=== PATIENT | male | born 1970 | race Caucasian/White ===

== ENCOUNTER 2025-01-13 22:09 | Inpatient (IN) | payer OTHER, SELFPAY ==
--- OUTSIDE RECORDS SUMMARY | 2025-01-13 22:17 | XMS_ITS | Encounter Summary ---
Author Organization [employer] Address [address] [place] [address] 7[address] [place] [address] Care Team Providers Care Recreation Clerk Name Role Phone Radha Borja [facility] Primary Care Provider [phone]- [phone] Mora Barcenas RN Unavailable Unavailable Graeme Rea MA Unavailable Unavailable Nancy Oneill Unavailable Unavailable Precious Redmond RN Unavailable Unavailable Encounter Details Date Type Department Care Team (Late st Contact Info) Description 01/10/2025 5:35 PM EDT Telemedicine [facility] [address] [place] [phone] Skylar Giordano FNP [address] [place] [phone] At high risk for falls (Primary Dx); High risk medication use Social History Tobacco Use Types Packs/Day Years Used Date Smoking Tobacco: Every Day Cigarettes 0.7 49.3 Started: 1977 Smokeless Tobacco: Former Comments:Reports smoking les s 08/05/24 Alcohol Use Standard Drinks/Week Comments Not Currently 0 (1 standard drink = 0.6 oz pur e alcohol) Housing Stability Answer Date Recorded What is your housing situation today? I have manuel perez 09/13/[address] you li ve. Do you have problems with any of the following? None of the above 09/13/2024 Food Insecurity Answer Date Recorded Within the past 12 months, y ou worried that your food would run out before you got money to buy more: Never True 10/22/2024 Within the past 12 months,th e food you bought just didn't last and you didn't have enough money to get more: Never True 07/2025 Transportation Answer Date Recorded In the past 12 months, has l ack of transportation kept you from medical appts, meetings, work or from getting things needed for daily living? Yes, it has kept me from medical appointments or getting medications. 10/22/2024 Utilities Answer Date Recorded In the past 12 months, has t he electric, gas, oil or water company threatened to shut off services in your home? No 09/13/2024 Internet Access Answer Date Recorded Internet Access Q1 Yes 09/13/2024 Internet Access Q2 Not on file 09/13/2024 Sex and Gender Information Value Date Recorded Sex Assigned at Male 03/18/2024 1:26 PM EDT Legal Sex Male 6:52 PM EDT Gender Identity Male 01/23/2024 6:52 PM EDT Sexual Orientation Straight 01/23/2024 6: 52 PM EDT documented as of this encounter Progress Notes * RYLIE Blue - 01/10/2025 5:35 PM EDT [facility]: After Hours Call Barrington Rodriguez : 1970 Received after hours alert for concern of polypharmacy. Page was returned within 20 minutes. Pt called asking if there were any medications that he could come off of because he feels that he'son too many. Denies neg SEs or concerning med effects but would like to wean off some. Plan: Advised pt continue all meds for now. Will have pt f/u with PCP to discuss med changes. He is in agreement with plan. Patient was educated about red flag warning signs for which they would need to seek emergency medical attention. Educated to follow up with new or worsening symptoms. RYLIE Blue- documented in this encounter Plan of Treatment Not on file documented as of this encounter Visit Diagnoses Diagnosis At high risk for falls- Primary High risk medication use documented in this encounter Care Teams Recreation Clerk Relationship Specialty Start Date End Date Radha Borja FNP [address] [place] [phone] PCP - General Family Medicine 07/04/22 Mora Barcenas, RN Registered Nurse Substance Use Disorder Treatment 02/23/24 Graeme Rea MA Substance Use Disorder Treatment 02/23/24 Nancy Oneill CHW Community Health Worker Psychiatry 04/29/24 Precious Redmond, VY Registered Nurse Case Management 12/02/24 [facility] 12/02/24 documented as of this encounter
--- OUTSIDE RECORDS SUMMARY | 2025-01-13 22:17 | XMS_ITS | Encounter Summary ---
Author Organization [employer] Address [address] [place] [address] [address] [place] [address] Care Team Providers Care Wheelman Name Role Phone Radha Borja [employer] MACHINE OPERATOR Primary Care Provider [phone]- [phone] Mora Barcenas RN Unavailable Unavailable Graeme Rea MA Unavailable Unavailable Nancy Oneill Unavailable Unavailable Precious Redmond RN Unavailable Unavailable Reason for Visit * Reason Onset Date Comments Appointment Request 11/29/2024 Encounter Details Date Type Department Care Team ([facility] st Contact Info) Description 11/29/[address] [phone] Radha Borja [address] [phone] Appointment Request Social History Tobacco Use Types Packs/Day Years [...] PM EDT documented as of this encounter Miscellaneous Notes * Telephone Encounter - Juan Camarillo - 11/29/2024 11:16 AM EST Pt needs f/u with pcp, next availability. Thank you. documented in this encounter Plan of Treatment Not on file documented as of this encounter Visit Diagnoses Not on filedocumented in this encounter Care Teams Wheelman Relationship Specialty Start Date End Date Radha Borja FNP [address] [place] [phone] PCP - General Family Medicine 07/04/22 Mora Barcenas, VY Registered Nurse Substance Use Disorder Treatment 02/23/24 Graeme Rea MA Substance Use Disorder Treatment 02/23/24 Nancy Oneill CHW Community Health Worker Psychiatry 04/29/24 Precious Redmond RN Registered Nurse Case Management 12/02/24 [facility] 12/02/24 documented as of this encounter
--- OUTSIDE RECORDS SUMMARY | 2025-01-13 22:17 | XMS_ITS | Encounter Summary ---
Author Organization [employer] Address [address] [place] [address] [place] [address] Care Team Providers Care Informatics Physician Liaison Name Role Phone Radha Borja Primary Care Provider [phone]- [phone] Mora Barcenas RN Unavailable Unavailable Graeme Rea MA Unavailable Unavailable Nancy Oneill CHW Unavailable Unavailable Trent Maguire CHW Unavailable Unavailable Precious Redmond RN Unavailable Unavailable Reason for Visit * Reason Comments Med Refill Encounter Details Date Type Department Care Team (Late st Contact Info) Description 04/06/2024 Refill Family [facility] Family [address] [phone] Johana Arreola FNP [address] [place] [phone] Opioid dependence, in remission (CMS/HCC) Social History Tobacco Use Types Packs/Day Years Used Date Smoking Tobacco: Every Day Cigarettes 0.7 49.3 Started: 1977 Sex and Gender Information Value Date Recorded Sex Assigned at Male 03/18/2024 1:26 PM EDT Legal Sex Male 6:52 PM EDT Gender Identity Male 01/23/2024 6:52 PM EDT Sexual Orientation Straight 01/23/2024 6: 52 PM EDT documented as of this encounter Plan of Treatment Not on file documented as of this encounter Visit Diagnoses Diagnosis Opioid dependence, in remission (CMS/HCC) documented in this encounter Care Teams Informatics Physician Liaison Relationship Specialty Start Date End Date Radha Borja FNP [address] [place] [phone] PCP - General Family Medicine 07/04/22 Mora Barcenas, VY Registered Nurse Substance Use Disorder Treatment 02/23/24 Graeme Rea MA Substance Use Disorder Treatment 02/23/24 Nancy Oneill CHW Community Health Worker Psychiatry 04/29/24 Trent Maguire CHW 08/24/24 08/24/24 Precious Redmond, VY Registered Nurse Case Management 12/02/24 [facility] 12/02/24 documented as of this encounter
--- OUTSIDE RECORDS SUMMARY | 2025-01-13 22:17 | XMS_ITS | Clinical Summary ---
Author Organization [employer] Address [address] [place] [address] [address] [place] [address] Care Team Providers Care Supervisor Hard Candy Name Role Phone Radha Borja MOTOR MECHANIC Primary Care Provider [phone] Mora Barcenas RN Unavailable Unavailable Graeme Rea MA Unavailable Unavailable Nancy Oneill Unavailable Unavailable Precious Redmond RN Unavailable Unavailable Allergies Active Allergy Reactions Criticality Noted Date Comments Acetaminophen Vomiting 08/12/2014 Causative Agent: Vicodin; Reaction(s): vomitting (moderate to severe) Hydrocodone Vomiting 08/12/2014 Causative Agent: Vicodin; Reaction(s): vomitting (moderate to severe) Other 09/13/2024 Penicillins Anaphylaxis High 08/12/2014 Reaction(s): Anaphalaxis (fatal) Medications * This document contains information received from the source organization and may not represent a complete record from that organization. albuterol (2.5 MG/3ML) 0.083% nebulizer solution Take 2.5 mg by nebulization every 4 (four) hours if needed for shortness of breath. 024 Active Ventolin HFA 108 (90 Base) MCG/ACT inhaler Inhale 2 puffs every 4 (four) hours if needed for shortness of breath. 023 Active ergocalciferol (Vitamin D2) 1.25 MG (82774 UT) capsule Take 50,000 Units by mouth 1 (one) time per week. Active Blood Pressure Monitoring (Blood Pressure Cuff) miscIndications: Hypertension, unspecified type 1 each before breakfast. 1 each 024 Active atorvastatin (Lipitor) 10 MG tabletIndication s:Coronary artery calcification seen on CT scan Take 1 tablet (10 mg) by mouth Once per day. 30 tablet 11 024 2024 Active nicotine (Nicoderm, Step 2) 14 MG/24HR patch Place 1 patch on the skin 1 (one) time each day at the same time. 28 patch 3 Active nicotine polacrilex (Nicorette) 4 MG gum Chew 1 each (4 mg) if needed for smoking cessation. 100 each 3 Active divalproex (Depakote) 500 MG EC tablet TAKE 2 TABLETS BY MOUTH 2 TIMES DAILY 120 tablet 1 Active tiotropium (Spiriva Respimat) 2.5 MCG/ACT inhaler Inhale 2 puffs Once per day. Active doxepin (SINEquan) 150 MG capsule Take 1 capsule (150 mg) by mouth at bedtime. 30 capsule 1 025 2024 Active diphenhydrAMINE (Banophen) 25 MG capsule Take 2 capsules (50 mg) by mouth if needed at bedtime for sleep. 60 capsule 1 Active Multiple Vitamin (Daily-Yobany) tablet Take 1 tablet by mouth before breakfast. 90 tablet 2 Active cloNIDine (Catapres) 0.2 MG tablet Take 1 tablet (0.2 mg) by mouth 2 times daily. 60 tablet 1 025 2024 Active furosemide (Lasix) 40 MG tablet Take 0.5 tablets (20 mg) by mouth Once per day. 30 tablet Active Buprenorphine HCl-Naloxone HCl (Suboxone) 8-2 MG SL filmIndications: Opioid use disorder Place 1 Film under the tongue 3 times daily. 84 Film Active pregabalin (Lyrica) 200 MG capsuleIndicatio ns:Peripheral neuropathic pain Take 1 capsule (200 mg) by mouth 2 times daily. 60 capsule 025 Active lidocaine (Lidoderm) 5 % patchIndications :Peripheral neuropathic pain Apply 1 patch topically Once per day. Remove & discard patch within 12 hours or as directed by MD. 30 patch 3 Active Symbicort 80-4.5 MCG/ACT inhaler Inhale 1 puff 2 times daily. Active predniSONE (Deltasone) 50 MG tablet Take 1 tablet by mouth Once per day. Active omeprazole (PriLOSEC) [address] capsuleIndicatio ns:Esophageal dysphagia Take 1 capsule (20 mg) by mouth before breakfast and before evening meal. 90 capsule 2 Active prazosin (Minipress) 2 MG capsuleIndicatio ns:Complex posttraumatic stress disorder Take 1 capsule (2 mg) by mouth at bedtime. 90 capsule 3 025 2025 Active amphetamine-dext roamphetamine XR (Adderall XR) 20 MG 24 hr capsuleIndicatio ns:Attention Deficit Hyperactivity Disorder Take 1 capsule (20 mg) by mouth in the morning. 025 2024 Active amphetamine-dext roamphetamine (Adderall) 10 MG tabletIndication s:Attention deficit hyperactivity disorder (ADHD), combined type Take 1 tablet (10 mg) by mouth Once daily. 025 2024 Active finasteride (Proscar) 5 MG tablet Take 5 mg by mouth Once per day. 024 2024 amphetamine-dext roamphetamine XR (Adderall XR) 20 MG 24 hr capsuleIndicatio ns:Attention Deficit Hyperactivity Disorder Take 1 capsule (20 mg) by mouth in the morning. 30 capsule 025 2024 Discontinued(R eorder (will not trigger notification to Pharmacy)) amphetamine-dext roamphetamine (Adderall) 10 MG tabletIndication s:Attention deficit hyperactivity disorder (ADHD), combined type Take 1 tablet (10 mg) by mouth Once per day for 24 days. 24 tablet 025 2024 Discontinued(R eorder (will not trigger notification to Pharmacy)) prazosin (Minipress) 2 MG capsuleIndicatio ns:Complex posttraumatic stress disorder Take 1 capsule (2 mg) by mouth at bedtime. 30 capsule 025 2024 Discontinued(R eorder (will not trigger notification to Pharmacy)) amphetamine-dext roamphetamine (Adderall) 10 MG tabletIndication s:Attention deficit hyperactivity disorder (ADHD), combined type Take 1 tablet (10 mg) by mouth Once daily. 30 tablet 025 2024 Discontinued(R eorder (will not trigger notification to Pharmacy)) amphetamine-dext roamphetamine XR (Adderall XR) 20 MG 24 hr capsuleIndicatio ns:Attention Deficit Hyperactivity Disorder Take 1 capsule (20 mg) by mouth in the morning. 30 capsule 025 2024 Discontinued(R eorder (will not trigger notification to Pharmacy)) Active Problems Patient Care Coordination No te Formatting of this note migh t be different from the original. Name, , address verified; this CHW called pt to introduce care complex program, pt stated that he was in rehab; this case will be closed from [facility] program. Problem Noted Date Diagnosed Date High risk medication use 01/10/2025 Moderate opioid dependence in sustained remissio n 01/06/2025 Community health education 10/29/2024 Assessment & Plan (11/02/2024 11:31 AM EST): - Home Health for VNA daily med management - CM given frequent admissions within last 6 months At high risk for falls 10/27/2024 Weakness of both lower extremities 10/27/2024 Assessment & Plan (10/27/2024 10:38 PM EST): Recent falls - likely multifactorial, potentially contributed to by new medications started in hospital (furosemide), dehydration, and pre-existing medications (clonidine, prazosin), as well as general deconditioning after hospital stay for respiratory failure. Heart rhythm normal on recent EKG during hospitalization, no evidence of cardiac issues on recent imaging. Decrease prazosin to 2mg capsule. No new rx needed. Pt has some at home Decrease clonidine to 0.2mg every day. No new rx needed. Pt has at home Pt declined to restart furosemide. Will cont to monitor weight, edema, fall. Recommend rpt labs - pt declined and want to come back another time or sooner if keeps occurring Discuss fall risk and proper use of cane Unclear if has home health service this time. Would benefit from home PT and fdc for med management for few months post discharge and living in new environment Gastroesophageal reflux disease 09/30/2024 Opioid dependence on agonist therapy 09/21/2024 Assessment & Plan (10/27/2024 10:18 PM EST): Denies current use. 5 years in sobriety. Cont to support. Uds rpt Not due for Suboxone refill yet Venous insufficiency (chronic) (peripheral) 02/2024 Type 2 DM with diabetic peripheral angiopathy w/ o gangrene 09/16/2024 Assessment & Plan (10/27/2024 9:59 PM EST): Asymptomatic. Metformin was initiated during hospitalization Aug 2024. His A1c during this hospitalization is 6.4 (borderline type II vs. Prediabetes. F/U regarding management Alcohol abuse, uncomplicated 09/16/2024 Retention of urine, unspecified 09/16/2024 Overview (12/12/2024): On 09/04/24, bladder scan >500 cc with urge to void. Straight cath ordered, however pt ultimately able to void 900 cc spontaneously. He had continued difficulties with initiating urination which improved after starting finasteride. Discharged with finasteride 5mg qd Post-traumatic stress disorder, unspecified 02/2024 Assessment & Plan (12/12/2024 8:27 PM EST): Cont prazosin and clonidine. See ADHD plan Esophageal dysphagia 09/16/2024 Overview (12/12/2024): 09/2024 Pt self reported difficulties swallowing. AUTOMOBILE REPOSSESSOR consult and MBS done with suggested normal oropharyngeal swallow phase, but esophageal dysmotility. Per AUTOMOBILE REPOSSESSOR note, esophageal phase, notable for contrast retention, corkscrew appearance, and retrograde flow . Pt with difficulty completing esophogram as he is not able to stand unassisted. Discharged with PPI BID and GI referral Epilepsy, unspecified, not i ntractable, without status epilepticus 09/16/2024 Food insecurity 09/13/2024 Leg swelling 09/07/2024 Alcohol dependence in remission 08/27/2024 Need for home health care 07/29/2024 Assessment & Plan (12/12/2024 8:21 PM EST): Update VNA care once establish with [facility] [phone] [facility] or [facility]ER care Transportation insecurity 07/28/2024 Assessment & Plan (12/12/2024 8:21 PM EST): Tasked psy LAURENW Nancy to assist with PT1 Hypertension 07/28/2024 Assessment & Plan (10/27/2024 10:15 PM EST): Discuss likely need to start BP med given multiple readings above 130/80. However, given recent frequent falls and generalized BLE weakness. Will hold for now. Advise to check home BP x2 weeks and f/u with nursing Remind that prazosin and clonidine are antihypertensive meds Coronary artery calcification seen on CT scan Overview (06/11/2024): From Lung CT 04/2024: Cardiac size is normal. No pericardial effusion. Mild coronary artery calcifications. Aorta and main pulmonary artery are normal in caliber. Assessment & Plan (08/16/2024 9:11 PM EST): Mild calcification of aorta on imaging. Started Atorvastatin 10mg as instructed, no side effect. Has not completed lab. Plan to return fasting for lipid panel and CMP. From Lung CT 04/2024: Cardiac size is normal. No pericardial effusion. Mild coronary artery calcifications. Aorta and main pulmonary artery are normal in caliber. The ASCVD Risk score ([place] DK, et al., 2019) failed to calculate for the following reasons: Cannot find a previous HDL lab Cannot find a previous total cholesterol lab - Cont Norman-3 fish oil supplementation - Cont to encourage smoking cessation and dietary changes and incorporate physical activities whenever possible Assessment & Plan (07/28/2024 11:55 AM EDT): From Lung CT 04/2024: Cardiac size is normal. No pericardial effusion. Mild coronary artery calcifications. Aorta and main pulmonary artery are normal in caliber. The ASCVD Risk score (Melina LEA, et al., 2019) failed to calculate for the following reasons: Cannot find a previous HDL lab Cannot find a previous total cholesterol lab - Mild calcification of aorta on imaging - Start atorvastatin 10 mg nightly for cholesterol control; watch for new onset muscle pain - Norman-3 fish oil supplementation - Repeat blood work to monitor kidney function after starting medications - If blood pressure remains elevated, consider starting a secondary antihypertensive medication (currently on clonidine and prazosin for PTSD which as BP lowering side effect) - Lifestyle modifications: reduce sausage and sugar intake Degenerative arthritis of thoracic spine 024 Overview (06/11/2024): No osseous lesions. Thoracic spine degenerative changes. Preservation of vertebral body heights. Lumbar radiculopathy 04/27/2024 Assessment & Plan (08/16/2024 8:55 PM EST): Episodic flare, likely MSK. - In-office Toradol 30mg for acute pain relief. Discuss potential side effects, such as gastrointestinal discomfort or dizziness, and instruct the patient to report any severe or unusual symptoms immediately. - Recommend oral NSAIDs, such as ibuprofen with food for continued pain management, if tolerated. Pt cannot tolerate Tylenol. - Educate the patient on non-pharmacological interventions, including rest, application of heat or cold packs, and gentle stretching exercises as tolerated. - Advise the patient to avoid heavy lifting or strenuous activities until the pain subsides. Assistance needed with transportation 02/21/2024 Overview (02/21/2024): Last Addressed Date: 10/21/2023 Attention deficit hyperactivity disorder (ADHD) 02/21/2024 Overview (06/11/2024): Assessment & Plan (12/12/2024 8:28 PM EST): No change in med. Good response to combination of XR and IR though caution on drug-drug interaction and exacerbation of comorbid medical conditions. ADHD combined type, diagnosed since childhood. Suboptimal symptom control c/b increase workload and health anxiety. Pt had trouble getting med from home. Issue resolved during visit. Rehab will administer med until discharge. Pt worries about his family stealing his meds and is requesting VNA services to help with med management upon discharge. He does use a lock-box. - Cont Adderal IR 10mg midday - Cont Adderall XR 20mg qAM. PA#[id number] from 12/02/23-12/02/24. Will task Rosalinda to start new PA - Cont Prazosin 2mg qhs (decreased to 2mg at bedtime in 09/2024 due to fall risk) for PTSD. Pt was on 4mg at bedtime - Cont Clonidine 0.2mg BID for ADHD and PTSD - Pt has tolerated being on both prazosin and clonidine in the past but the higher dose may be contributing to recent falls. We had tried to stop the prazosin when we started the clonidine (for additional sleep benefit), but pt requested to stay on prazosin as well since it has helped with his flashbacks and agitation during the day. -We will continue to support his sobriety and self-management efforts and assist him with transportation needs. 5 years in sobriety as of 06/2024. - We will continue to closely follow-up and encourage his continued engagement in therapy with Kim Baxter Assessment & Plan (11/02/2024 11:33 AM EST): ADHD combined type, diagnosed since childhood. Suboptimal symptom control c/b increase workload and health anxiety. Pt had trouble getting med from home. Issue resolved during visit. Rehab will administer med until discharge. Pt worries about his family stealing his meds and is requesting VNA services to help with med management upon discharge. He does use a lock-box. - Cont Adderal IR 10mg midday - Cont Adderall XR 20mg qAM. PA#[id number] from 12/02/23-12/02/24. - Cont Prazosin 2mg qd and Clonidine 0.2mg every day. Pt has tolerated being on both prazosin and clonidine in the past but the higher dose may be contributing to recent falls. We had tried to stop the prazosin when we started the clonidine (for additional sleep benefit), but pt requested to stay on prazosin as well since it has helped with his flashbacks and agitation during the day. -We will continue to support his sobriety and self-management efforts and assist him with transportation needs. 5 years in sobriety as of 06/2024. - We will continue to closely follow-up and encourage his continued engagement in therapy with Kim Baxter Assessment & Plan (10/27/2024 10:25 PM EST): ADHD combined type, diagnosed since childhood. Suboptimal symptom control c/b increase workload and health anxiety. Lack of adequate refill given recent hospitalization. - Plan to check if PA is needed - Change pharmacy to [facility] - Cont Adderal IR 10mg midday - Cont Adderall XR 20mg qAM. [id number] from 12/02/23-12/02/24. - Decrease Prazosin 2mg qd and Clonidine 0.2mg every day. Pt has tolerated being on both prazosin and clonidine in the past but the higher dose may be contributing to recent falls. We had tried to stop the prazosin when we started the clonidine (for additional sleep benefit), but pt requested to stay on prazosin as well since it has helped with his flashbacks and agitation during the day. -We will continue to support his sobriety and self-management efforts and assist him with transportation needs. 5 years in sobriety as of 06/2024. - We will continue to closely follow-up and encourage his continued engagement in therapy with Kmi Baxter Assessment & Plan (08/16/2024 8:46 PM EST): ADHD combined type, diagnosed since childhood. Suboptimal symptom control c/b increase workload and health anxiety. - Doing better with recent meds adjustment but unfortunately his work/residential setting continue to be stressful and disruptive to his sleep and a risk for his sobriety. He lives in a sober house and needs to be constantly hypervigilance (in addition to PTSD symptoms) and looking out for residents. As a results, he can't go to bed until 1-2pm and self-increase Adderall Xr20mg qAM; admits needs extra dose from the street sometimes. We had added an IR 10mg dose of Adderall last visit and he found this helpful. - Cont Adderal IR 10mg midday - Adderall XR 20mg qAM. PA#[id number] from 12/02/23-12/02/24. - Cont Prazosin 4mg at bedtime and Clonidine 0.2mg BID Pt has tolerated being on both prazosin and clonidine. We had tried to stop the prazosin when we started the clonidine (for additional sleep benefit), but pt requested to stay on prazosin as well since it has helped with his flashbacks and agitation during the day. -We will continue to support his sobriety and self-management efforts and assist him with transportation needs. 5 years in sobriety 06/2024. - We will continue to closely follow-up and encourage his continued engagement in therapy with Kim Baxter Assessment & Plan (07/28/2024 11:53 AM EDT): ADHD combined type, diagnosed since childhood. Suboptimal symptom control c/b increase workload and health anxiety. Currently on Adderall XR 20mg every morning. Pt has had increased responsibility at the sober house and feels the Adderall XR has not worked/lasted as long from afternoon on. He lives in a sober house and needs to be constantly hypervigilance (in addition to PTSD symptoms) and looking out for residents. As a results, he can't go to bed until 1-2pm and self-increase Adderall Xr20mg qAM; admits needs extra dose from the street sometimes. - Increase Adderall XR 20mg qAM. Can consider 10mg regular release prn PM. However, given BP, extreme caution with increase dose. Pt also not taking clonidine and prazosin as often. I reiterated to day that both of these medications have additional benefits of lowering BP as well. Pt has tolerated being on both prazosin and clonidine. We had tried to stop the prazosin when we started the clonidine (for additional sleep benefit), but pt requested to stay on prazosin as well since it has helped with his flashbacks and agitation during the day. Will need PA. Previous [id number] from 12/02/23-12/02/24. -The patient was informed about the risks, benefits, side effects, and alternatives to the proposed treatments, as well as the option of making no changes to the current regimen. He understood and agreed with the proposed plan. -We will continue to support his sobriety and self-management efforts and assist him with transportation needs. 5 years in sobriety 06/2024. - We will continue to closely follow-up and encourage his continued engagement in therapy with Kim Baxter Follow-up with Psy nurse for med response (side effects) Assessment & Plan (04/29/2024 7:44 PM EDT): ADHD combined type, diagnosed since childhood. Stable with current dose. - Cont Adderall XR 20mg every morning. PA#[id number] from 12/02/23-12/02/24. Last filled 02/02/24 for 28 days. [facility] checked. Next refill: 03/01/24 -Reviewed the risks, benefits, side effects, and alternatives to the proposed treatments, as well as the option of making no changes to the current regimen. He understood and agreed with the proposed plan. -We will continue to support his sobriety and self-management efforts and assist him with transportation needs. - We will continue to closely follow-up and encourage his continued engagement in therapy with Kim Navarro Rpt lab at IP visit. Monitoring parameter: ---BP, HR, Cardiovascular risk ---Lipid (last done 2020, rpt 2025) ---Future considerations: Sleep Studies ---EKG: last record in EMR 05/2022 at [facility]: rate 83, NSR, nonspecific change in ST segment in anterior leads. Bilateral chronic knee pain 02/21/2024 Overview (02/21/2024): Last Addressed Date: 03/20/2023 Chronic pain syndrome 02/21/2024 Overview (02/21/2024): Last Addressed Date: 11/12/2023 Cocaine dependence in remission 02/21/2024 Overview (02/21/2024): Last Addressed Date: 04/24/2017 Color blindness 02/21/2024 Overview (02/21/2024): Last Addressed Date: 05/07/2021 Complex posttraumatic stress disorder 02/21/2024 Overview (04/29/2024): 53 yo, M, with polysubstance use, chronic back and knee pain, peripheral neuropathy, concurrent ADHD combined type and cPTSD, along with history of bipolar affective disorder. He does not exhibited hypomanic/manic and psychotic symptoms today. Low suicide risk. Agitaiton has sig improved. Typical frustration has identifiable cause such as sleep disturbances secondary to PTSD symptoms, chronic pain and ADHD symptoms. Since we started ADHD treatement, pt reports improvement in irritability, impulsitivity, anxiety, concentration, and productivity with daily activities. Assessment & Plan (08/16/2024 8:47 PM EST): cPTSD c/b current need to be hypervigilance for work (most recent), h/x polysubstance use in remission, chronic back and knee pain, peripheral neuropathy, ADHD combined type. He carries a previous diagnosis of bipolar d/o, which is a common misdiagnosis for patients w/ cPTSD and uncontrolled ADHD and resultant polysubstance use. His h/o misconduct, impulsitivity, easily agitated and mood dysregulation are described in the setting of traumatic events, family discord, self-medicated, lack of psychosocial supports rather than a primary thought or mood disorder. Since we started ADHD treatement, pt reports improvement in sleep disturbances, irritability, impulsitivity, anxiety, concentration, and productivity with daily activities He does not exhibited hypomanic/manic and psychotic symptoms today. Low suicide risk. Agitaiton has sig improved. Typical frustration has identifiable cause such as family conflict (sister), intrusive memories and sleep disturbances secondary to PTSD symptoms, chronic pain and ADHD symptoms. - Reinforced important of taking medications as prescribed. - Cont clonidine 0.2mg BID for PTSD. Cautions on orthostatic hypotention - Cont Prazosin 4mg BID. Pt states has run out recently. Knows of side effects. Plan to monitor. This med helps with sleep and agitation for him. - Cont Trazadone 50mg qhs and Benadryl prn for sleep - Cont Depakote DR 1000mg BID for mood. Rpt serum at IP. - Cont [id number] qhs for depression and insomnia augmentation - Cont Pregabalin 200 mg BID for additional neuropathic pain control. (Increased in 06/2024) - Cont psychotherapy with Kim as scheduled. Assessment & Plan (07/28/2024 11:34 AM EDT): cPTSD c/b current need to be hypervigilance for work (most recent), h/x polysubstance use in remission, chronic back and knee pain, peripheral neuropathy, ADHD combined type. He carries a previous diagnosis of bipolar d/o, which is a common misdiagnosis for patients w/ cPTSD and uncontrolled ADHD and resultant polysubstance use. His h/o misconduct, impulsitivity, easily agitated and mood dysregulation are described in the setting of traumatic events, family discord, self-medicated, lack of psychosocial supports rather than a primary thought or mood disorder. Since we started ADHD treatement, pt reports improvement in sleep disturbances, irritability, impulsitivity, anxiety, concentration, and productivity with daily activities He does not exhibited hypomanic/manic and psychotic symptoms today. Low suicide risk. Agitaiton has sig improved. Typical frustration has identifiable cause such as family conflict (sister), intrusive memories and sleep disturbances secondary to PTSD symptoms, chronic pain and ADHD symptoms. - Reinforced important of taking medications as prescribed. - Cont clonidine 0.2mg BID for PTSD. Cautions on orthostatic hypotention -Restarts Prazosin 4mg BID. Pt states has run out recently. Knows of side effects. Plan to monitor. This med helps with sleep and agitation for him. - Cont Trazadone 50mg qhs and Benadryl prn for sleep - Cont Depakote DR 1000mg BID for mood. Rpt serum at IP. - Cont [id number] qhs for depression and insomnia augmentation - Increased Pregabalin 200 mg BID for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 micronodules are stable. Lung-RADS Category 2: Benign Appearance or Behavior Nodules with a very low likelihood of becoming a clinically active cancer due to size or lack of growth Lung-RADS Category Description 2: Continue annual screening with CT Lung Screening ??in 12 months Findings under this category can include: Perifissural nodule(s) < 10 mm (524 mm3) Solid nodule(s): < 6 mm (< 113 mm3) new < 4 mm (< 34 mm3) Part solid nodule(s): < 6 mm total diameter (< 113 mm3) on baseline screening Non solid nodule(s) (GGN): <30 mm (<91061 mm3) OR > or equal to 30 mm ( > [place] [address] mm3) and unchanged or slowly growing. Category 3 or 4 nodules unchanged for > or equal to 3 months. ?? Modifier No clinically significant or potentially significant findings Schedule lung cancer screening CT/follow-up CT: ----- ----- This report uses Lung RADS version 1.1 (2019) [email or web address] [email or web address]?la=en If this radiology report contains a blank impression section, it is an incomplete radiology report. ??Please contact the interpreting radiologist or applicable radiology division as soon as possible to obtain the completed interpretation. ? Workstation ID: [id number] Up-to-date CT equipment and radiation dose reduction techniques were employed. CTDIvol: 2.3 mGy. DLP: 68 mGy-cm. Procedure Note Donottravisinterpreter, Image - 04/24/2024 CT LUNG CANCER SCREENING BASELINE INDICATION: Baseline screening. COMPARISON: CT chest 06/12/2021. TECHNIQUE: Non-enhanced chest CT. Images were acquired with helicalacquisition and low dose technique. Multiplanar reconstructions includingMIP, MinIP and Slab images were reviewed. Note that low dose techniqueuses a low level of radiation exposure that provides adequate lung detail but limited image quality in themediastinum and upper abdomen. For radiation dose control at least one of the following techniques wasused in this procedure (1) Automated exposure control (2) Adjustment ofthe mA and/or kV according to patient size (3) Use of iterativereconstruction technique. FINDINGS: BASE OF NECK: Unremarkable. LUNGS AND PLEURA: Mild centrilobular emphysema. Series 900: New 7 mm groundglass nodule in the left upper lobe (62) and 6mm groundglass anterior right upper lobe nodule (91); stable 4 mm leftupper lobe nodule (109) and 4 mm nodule along the minor fissure(147). Mild bibasilar atelectasis. Mild bronchial wall thickening and wall irregularity. MEDIASTINUM: Cardiac size is normal. No pericardial effusion. Mild coronary arterycalcifications. Aorta and main pulmonary artery are normal in caliber. NODES: No adenopathy. UPPER ABDOMEN: No abnormality. BONES/SOFT TISSUES: No osseous lesions. Thoracic spine degenerative changes. Preservation ofvertebral body heights. IMPRESSION: New 7 mm and 6 mm groundglass nodules in the left upper and right upperlobe respectively. Other micronodules are stable. Lung-RADS Category 2: Benign Appearance or Behavior Nodules with a verylow likelihood of becoming a clinically active cancer due to size or lackof growth Lung-RADS Category Description 2: Continue annual screening with CT Lung Screening in 12 months Findings under this category can include: Perifissural nodule(s) < 10 mm (524 mm3) Solid nodule(s): < 6 mm (< 113 mm3) new < 4 mm (< 34 mm3) Part solid nodule(s): < 6 mm total diameter (< 113 mm3) on baseline screening Non solid nodule(s) (GGN): <30 mm (<77320 mm3) OR > or equal to 30 mm ( > [place] 7[address]69 mm3) and unchanged or slowly growing. Category 3 or 4 nodules unchanged for > or equal to 3 months. Modifier No clinically significant or potentially significant findings Schedule lung cancer screening CT/follow-up CT: ----- ----- This report uses Lung RADS version 1.1 (2019) [email or web address] [email or web address] .[email or web address]?la=en If this radiology report contains a blank impression section, it is anincomplete radiology report. Please contact the interpreting radiologistor applicable radiology division as soon as possible to obtain thecompleted interpretation. Workstation ID: [id number] Up-to-date CT equipment and radiation dose reduction techniques wereemployed. CTDIvol: 2.3 mGy. DLP: 68 mGy-cm. us Radha YOUNGBLOOD IMG CT PROCEDURES Final Re sult * HM Hepatitis C Antibody (05/15/2021) Hepatitis C Antibody Nonreactive Blood Historical Provider HEALTH MAINTENANCE Final Result * HIV 1/2 Antigen and Antibody (05/15/2021) HIV Ag/Ab Nonreactive [facility] Provider HEALTH MAINTENANCE Final Result * Fecal Immunochemical Test (05/15/2021) Fecal Immunochemical Test Nonreactive Borderline, Nonreactive, Weakly Reactive, Inconclusive Stool Rectal contents / Unknown [facility] Provider HEALTH MAINTENANCE Final Result from Last 3 Months or Most Recently Relevant to Health Maintenance Insurance C3 Care Teams Supervisor Hard Candy Relationship Specialty Start Date End Date Radha Borja FNP [address] [place] [phone] PCP - General Family Medicine 07/04/22 Mora Barcenas, [place] Registered Nurse Substance Use Disorder Treatment 02/23/24 Graeme Rea MA Substance Use Disorder Treatment 02/23/24 Nancy Oneill CHW Community Health Worker Psychiatry 04/29/24 Precious Redmond RN Registered Nurse Case Management 12/02/24 [facility] 12/02/24
--- OUTSIDE RECORDS SUMMARY | 2025-01-13 22:17 | XMS_ITS | Encounter Summary ---
Author Organization [employer] Address [address] [place] [address] 7[address] [place] [address] Care Team Providers Care Inner Layer Scrubber Tender Name Role Phone Radha Borja [employer] Primary Care Provider [phone]- [phone] Mora Barcenas RN Unavailable Unavailable Graeme Rea MA Unavailable Unavailable Nancy Oneill CHDrew Unavailable Unavailable Precious Redmond RN Unavailable Unavailable Reason for Visit * Reason Onset Date Comments After Hours Call 01/11/2025 Admitted to [facility] 01/08, COPD Encounter Details Date Type Department Care Team (Late st Contact Info) Description 01/11/[address] [phone] Anel Gonzalez, VY After Hours Call (Admitted to [facility] 01/08, COPD) Social History Tobacco Use Types Packs/Day Years [...] encounter Miscellaneous Notes * Telephone Encounter - Anel Weber RN - 01/12/2025 9:20 AM EDT Review of PING: still admitted at [facility] * Telephone Encounter - Anel Weber RN - 01/11/2025 7:55 AM EDT After Hours Call 01/10/25 [id number] - [facility] - (null) Patient/Family Caller Name Barrington Rodriguez Call Date/Time 01/10/2025 05:07 PM Patient Name Barrington Gomez Patient 1970 Age:(54 yrs) Alt-Phone Attempt 1 01/10/2025 05:36 PM Attempt 2 Secure Msg 1st Guideline:2327 PCP Call - No Triage - (Adult After-Hours)Final Guideline:2325 Medication Question Call - (Adult After-Hours)Care Advice:Call PCP within 24 hoursNurse:AchristianoPreliminary Assessment Notes:the Patient Is Requesting A Return Call, He Is At the [facility], Room 20 Triage Assessment Notes:1st attempt room [facility] pt states he is in [facility] and has so many medications and needs to get off of some medications he is on too many adderal, suboxone, gabapentin and Prazosin are the only ones he should be on, ,Pt states [facility] wants to speak with his PCP and he states he wants his meds reconciled, . Pt states Dr Alvarez is PCP? He needs to get into a new program, RN spoke with Patient's nurse Kalyan and states the person that may have wanted to speak with his PCP has left for the day and pt waa trying to facilitate that conversation, requests a call back tomorrow once staff has arrived at the hospital Disposition is to call PCP within 24 hours, a care request sent to investor relations associate accepted by Skylar Giordano at 535pm, CARE ADVICE given per PCP Call - No Triage (Adult) guideline.CARE ADVICE given per Medication Question Call - NoTriage (Adult) guideline.ALC.RN Questions / Responses for 2326-PCP Call - No Triage - (Adult After-Hours) Resp. Triage Questions (Triggering Disposition) Comments YES [1] Follow-up call from patient regarding patient's clinical status AND [2] information not urgent Timing: use nursing judgment to determine urgency of PCP contact CA: 50, 1 Resp. Care Advice Comments CARE ADVICE given per PCP Call - No Triage (Adult) guideline. CALL PCP WITHIN 24 HOURS: You need to discuss this with your doctor within the next 24 hours. - IF OFFICE WILL BE OPEN: Call the office when it opens tomorrow morning. - IF OFFICE WILL BE CLOSED: I'll page him now. (EXCEPTION: from 9 pm to 9 am. Since this isn't urgent, we'll hold the page until morning.) Questions / Responses for 2324-Medication Question Call - (Adult After-Hours) Resp. Initial Assessment Questions Comments YES 1. SYMPTOMS: Do you have any symptoms? 2. SEVERITY: If symptoms are present, ask Are they mild, moderate or severe? Resp. Triage Questions (Triggering Disposition) Comments YES Caller has nonurgent medication question about med that PCP prescribed and triager unable to answer question CA: 50, 3, 5, 4, 1 Resp. Care Advice Comments CARE ADVICE given per Medication Question Call - No Triage (Adult) guideline. For INSULIN ERRORS: - Monitor your blood sugar. LOW BLOOD SUGAR (hypoglycemia) is defined as a blood glucose under 70 mg/dl (3.9 mmol/l). - Watch for symptoms of hypoglycemia (e.g., confusion, weakness, shakiness, sweating). For INSULIN TITRATION questions: - Best option: contact your doctor, or your volunteer coordinator - Second option: go to a clinic or urgent care center or nurse ([facility]) - Last option: go [facility] LOW BLOOD SUGAR - TREATMENT - Eat some (10-15 gms) sugar NOW. Each of the following is equivalent to 10 gms of glucose: - Milk (1 cup; 240 ml) - Dwight juice (1/2 cup; 120 ml) - Pre-packaged juice box (1 box) - Table sugar or honey (3 teaspoons; 15 ml) - Glucose tablets (3) CALL PCP WITHIN 24 HOURS: You need to discuss this with your doctor within the next 24 hours. - IF OFFICE WILL BE OPEN: Call the office when it opens tomorrow morning. - IF OFFICE WILL BE CLOSED: I'll page him now. (EXCEPTION: from 9 pm to 9 am. Since this isn't urgent, we'll hold the page until morning.) documented in this encounter Plan of Treatment Not on file documented as of this encounter Visit Diagnoses Not on filedocumented in this encounter Care Teams Inner Layer Scrubber Tender Relationship Specialty Start Date End Date Radha Borja FNP [address] [place] [phone] PCP - General Family Medicine 07/04/22 Mora Barcenas, V[place] Registered Nurse Substance Use Disorder Treatment 02/23/24 Graeme Rea MA Substance Use Disorder Treatment 02/23/24 Nancy Oneill CHW Community Health Worker Psychiatry 04/29/24 Precious Redmond RN Registered Nurse Case Management 12/02/24 [facility] 12/02/24 documented as of this encounter
--- OUTSIDE RECORDS SUMMARY | 2025-01-13 22:17 | XMS_ITS | Encounter Summary ---
Author Organization [employer] Address [address] [place] [address] 7t [place] [address] Care Team Providers Care Dynamometer Mechanic Name Role Phone Radha Borja [facility] Primary Care Provider [phone]- [phone] Mora Barcenas RN Unavailable Unavailable Graeme Rea MA Unavailable Unavailable Nancy Oneill Unavailable Unavailable Precious Redmond RN Unavailable Unavailable Encounter Details Date Type Department Care Team (Late st Contact Info) Description 01/04/2025 Orders Only [address] [id number] Radha Borja, [address] [phone] Attention deficit hyperactivity disorder (ADHD), combined type; Attention deficit hyperactivity disorder (ADHD), combined type Social History Tobacco Use Types Packs/Day Years [...] as of this encounter Visit Diagnoses Diagnosis Attention deficit hyperactivity disorder (ADHD), combined type documented in this encounter Care Teams Dynamometer Mechanic Relationship Specialty Start Date End Date Radha Borja FNP [address] [place] [phone] PCP - General Family Medicine 07/04/22 Mora Barcenas, VY Registered Nurse Substance Use Disorder Treatment 02/23/24 Graeme Rea MA Substance Use Disorder Treatment 02/23/24 Nancy Oneill CHW Community Health Worker Psychiatry 04/29/24 Precious Redmond, VY Registered Nurse Case Management 12/02/24 [facility] 12/02/24 documented as of this encounter
[2025-01-13 22:35] VITALS: BP 117/65; PULSE 73; RESP 16; TEMP 36.9; O2SAT 88
[2025-01-13 22:59] LABS: Glucose, Whole Blood 130 mg/dL (60-115)
[2025-01-14 01:48] VITALS: BMI 34.3
--- NOTE | 2025-01-14 07:03 | PC.ADMIT ---
Addendum entered by Giovana Gaming RN 01/14/25 08:07: A few of Barrington's medications were unable to this principal technical writer to add to his medication reconciliation, receiving nurse, Taylor enciso. Original Note: Patient is a 54 year old Malagasy speaking male, admitted as a CV admission to at 2235 01/13/25 and placed on 1:1 safety checks due to using portable oxygen 24/7 and utilizing a walker to ambulate. Patient was on the 5th floor medical unit at [facility] after presenting to that ED with worsening shortness of breath. While he was on the medical unit it was determined patient was showing signs of paranoia/paranoid ideation that people are spying on him. Patient has a hx to include: suicidal behavior with attempted injury, tobacco use, polysubstance abuse, (heroin, cocaine, alcohol) patient has been sober for 5 years and is currently on Suboxone, he is also diabetic, Bipolar 1 disorder. Patient is allergic to Hydrocodones and PCNs. According to his intake patient is frequently in the ED for respiratory issues and there is a question of oxygen use compliance and he still smokes one cigaret every few days. He is c/o being on too many medications. Patient has a history of inpatient psychiatric treatment, most recently at [facility] 12/20/24 but patient feels that he is not being given the proper treatment for his flashbacks and is only prescribed more medications . Barrington lives with his sister and her fiance but the sister is not sure how to be of help to him now. The plan for Barrington is to be evaluated for his medications and see if there is anything that needs to be changed to improve his sadness and issues with coping. Patient was quite upset on arrival to and was adamant he needed to watch while his belongings are checked in. He wanted to know why he could not wear his heavy boots, use his personal phone on the unit, wear his hat and wear all of his jewelry. Patient did not want to participate in signing JOSE. He said he was tired and hungry. POC done read 130 . Skin check done and unremarkable. Patient reported his anxiety high 7/10, depression a little , he denied SI, HI AVH. He rated his pain 9-10/10 bilateral hips, complained of poor sleep, with difficulty falling asleep as well as nightmares. Patient said he wants to get back to self-control with decreased meds. His med were reconciled using the medical record from [facility]. Dr. Juan C Ceja aware of patient's admission. Orders received. Patient will remain on 1:1 safety checks d/t being on portable oxygen and using a walker. Apparently Barrington has had a fall in the past 6 months. Report passed onto day shift. Patient slept through the night with a few medications.
[2025-01-14 08:29] LABS: Glucose, Whole Blood 180 mg/dL (60-115)
[2025-01-14 08:42] VITALS: BP 128/71
[2025-01-14] MEDS: cloNIDine HCL 0.2 MG TABLET PO ×2 (08:42→20:29)
[2025-01-14] MEDS: Finasteride 5 MG TABLET PO (08:42)
[2025-01-14] MEDS: Divalproex Sodium 500 MG TABLET.DR 1000 MG PO ×2 (08:42→20:28)
[2025-01-14] MEDS: Pregabalin 200 MG CAPSULE PO ×2 (08:42→20:29)
[2025-01-14] MEDS: predniSONE 20 MG TABLET PO ×2 (08:42→20:28)
[2025-01-14] MEDS: Insulin Lispro 100 UNIT/ML 3 ML VIAL SUBCUT ×3 (08:42→20:27)
[2025-01-14] MEDS: Omeprazole 20 MG CAPSULE.DR PO ×2 (08:42→20:29)
[2025-01-14 09:26] VITALS: BP 128/71; PULSE 73; RESP 16; TEMP 36.4; O2SAT 92
--- NOTE | 2025-01-14 09:36 | P.HPPS_ITS ---
HPI Date of Service: 01/14/25 Chief Complaint: Anxiety Disorder Unspecified/Polysubstance Abuse Sources of Information: patient interviewed, chart reviewed and crisis/core team assessment reviewed HPI Subjective Notes: Garza Warning and Conditional Voluntary Narrative: Patient is a 54-year-old male with history of bipolar disorder, PTSD, substance abuse in sustained remission, COPD on home O2 (05/05), non-IDDM, uses a walker who presents for worsening paranoid ideations following medical admission for mild COPD exacerbation. On the unit, patient very anxious about his belongings and demanded being able to watch staff examine them. Patient said he was at home at his sister's where he has been living for 4 months and had trouble breathing and so wanted to go to the hospital where he was treated for COPD exacerbation. While there patient expressed paranoid ideations. Patient reports he has been sober for 4 years and was living in a sober home until about 4 months ago when he moved into his sister's house. He says ever since then, his nephew, her son has been doing little things, subtle things to antagonize him. His sister denies this and will say her son is not even in the house however patient knows this is not true. He says this has been escalating over the past few weeks. This past week, he was at [id number] outdoors (he wants administrative underwriter to know that the police brought him there so he could buy a cell phone) to by a cell phone and upon returned to his home, he was upstairs and said he heard his nephew say that he was going to steal the cell phone; he laments that again his sister insisted that her son (patient's nephew) was not in the house at all however patient is convinced that he was. Patient says while at the hospital, he knows that his sister got admitted there because he saw what he thought was the back of her ducking into a room and isn't fueled by hospital staff that said she was not there. Patient also believes that his sister is giving him extra medications in a box of medications some of which are not his and is upset that she does not bring the full box to him to prove it; he also thinks that she will discontinue some medications his doctor wants him to be on for some unknown reason. Patient is beside himself with grief because he loves his sister and can not understand why over these past 4 months she is turning against him and allowing her son to antagonize him. Patient acknowledges that he will intermittently have auditory hallucinations of hearing a word being said but when he turns to look there is no one there. Past Psychiatric History: Psych admissions: most recently at [facility] 12/20/24 Patient has a hx to include: suicidal behavior with attempted injury Medical Evaluation Reviewed: Hospitalist Marijaal Pending [facility] Medical History (Updated 01/14/25 @ 17:48 by Pierce Patricio MD) COPD (chronic obstructive pulmonary disease) Diabetes PTSD (post-traumatic stress disorder) Schizoaffective disorder, bipolar type Family History: Deferred Social History: Was living in a sober house until 4 months ago when he moved into his sister's house Overall good relationship with the sister and her History of incarceration for total of 22 years Substance History: patient has been sober for 4 years; otherwise hx of polysubstance abuse, (heroin, cocaine, alcohol); is currently on Suboxone Trauma History: Patient endorses; does not discuss Diagnostics Vital Signs (24Hr): Vital Signs - 24 hr 01/13/25 22:35 01/14/25 08:42 01/14/25 09:26 Temperature 98.5 F 97.5 F Pulse Rate 73 73 Respiratory Rate 16 16 Blood Pressure 117/65 128/71 128/71 Pulse Oximetry 88 L 92 Oxygen Delivery Method Room Air Room Air BMI result Body Mass Index 34.3 Labs 01/14/25 12:04 01/14/25 12:04 Labs: Laboratory Results - last 48 hr 01/13/25 01/14/25 22:54 08:24 POC Glucose 130 H 180 H Meds/Allergies Meds Home Medications ?Medication ?Instructions ?Recorded ?Confirmed ?Type albuterol sulfate 2.5 mg/3 mL 1 mg inhalation Q2H PRN Shortness 01/13/25 01/13/25 History (0.083 %) solution for nebulization Of Breath Or Wheezing calcium 500 mg PO TID PRN Indigestion 01/13/25 01/14/25 History clonidine 0.2 mg PO BID 01/13/25 01/13/25 History dextroamphetamine-amphetamine ER 1 cap PO QAM 01/13/25 01/13/25 History 20 mg 24hr capsule,extend release (Adderall XR) divalproex 1,000 mg PO BID 01/13/25 01/13/25 History doxepin 25 mg PO BEDTIME 01/13/25 01/13/25 History enoxaparin 40 mg subcut DAILY 01/13/25 01/13/25 History finasteride 5 mg PO DAILY 01/13/25 01/13/25 History insulin lispro See Protocol subcut QIDACHS 01/13/25 01/14/25 History pantoprazole 40 mg PO BID 01/13/25 01/14/25 History prednisone 20 mg PO BID 01/13/25 01/14/25 History pregabalin 200 mg PO BID 01/13/25 01/14/25 History albuterol 15 mcg inhalation Q2-3H PRN 01/14/25 01/14/25 History Shortness Of Breath Or Wheezing arformoterol 2 ml inhalation 01/14/25 History buprenorphine-naloxone 8 mg PO TID 01/14/25 01/14/25 History lidocaine 2 patch DAILY pain 01/14/25 01/14/25 History pregabalin 200 mg PO BID 01/14/25 01/14/25 History quetiapine 100 mg PO BEDTIME 01/14/25 01/14/25 History quetiapine 50 mg tablet 50 mg PO TID PRN Increased 01/14/25 01/14/25 History paranoia/agitation Allergies Allergies Allergy/AdvReac Type Severity Reaction Status Date / Time hydrocodone Allergy Unknown Verified 01/14/25 02:11 Penicillins Allergy Unknown Verified 01/14/25 02:13 Mental Status Exam Mental Status Exam Narrative: Pt is alert and oriented; behavior is irritable, suspicious but also cooperative and attempting to be friendly and calm; patient is not in distress; dressed in casual attire, rings, bracelets, tattooed arms; unkempt hair but adequate hygiene; mood is described as anxious and affect congruent, intense; eye contact appropriate; Speech is normal rate, volume and prosody and not pressured; intermittent psychomotor agitation present; thought process is organized and goal directed; Thought content is on paranoid ideations; denies any SI/HI. Intermittent AH; patient aware of some of them. Patients insight and judgment impaired Assessment & Plan Assessment & Plan (1) Schizoaffective disorder, bipolar type: Status: Acute Code(s): F25.0 - Schizoaffective disorder, bipolar type (2) PTSD (post-traumatic stress disorder): Status: Acute Code(s): F43.10 - Post-traumatic stress disorder, unspecified (3) Diabetes: Status: Acute Code(s): E11.9 - Type 2 diabetes mellitus without complications (4) COPD (chronic obstructive pulmonary disease): Status: Acute Code(s): J44.9 - Chronic obstructive pulmonary disease, unspecified Plan HPI: Patient is a 54-year-old male with history of bipolar disorder, PTSD, substance abuse in sustained remission, COPD on home O2 (05/05), non-IDDM, uses a walker who presents for worsening paranoid ideations following medical admission for mild COPD exacerbation. On the unit, patient very anxious about his belongings and demanded being able to watch staff examine them. Patient said he was at home at his sister's where he has been living for 4 months and had trouble breathing and so wanted to go to the hospital where he was treated for COPD exacerbation. While there patient expressed paranoid ideations. Patient reports he has been sober for 4 years and was living in a sober home until about 4 months ago when he moved into his sister's house. He says ever since then, his nephew, her son has been doing little things, subtle things to antagonize him. His sister denies this and will say her son is not even in the house however patient knows this is not true. He says this has been escalating over the past few weeks. This past week, he was at [employer] outdoors (he wants administrative underwriter to know that the police brought him there so he could buy a cell phone) to by a cell phone and upon returned to his home, he was upstairs and said he heard his nephew say that he was going to steal the cell phone; he laments that again his sister insisted that her son (patient's nephew) was not in the house at all however patient is convinced that he was. Patient says while at the hospital, he knows that his sister got admitted there because he saw what he thought was the back of her ducking into a room and isn't fueled by hospital staff that said she was not there. Patient also believes that his sister is giving him extra medications in a box of medications some of which are not his and is upset that she does not bring the full box to him to prove it; he also thinks that she will discontinue some medications his doctor wants him to be on for some unknown reason. Patient is beside himself with grief because he loves his sister and can not understand why over these past 4 months she is turning against him and allowing her son to antagonize him. Patient acknowledges that he will intermittently have auditory hallucinations of hearing a word being said but when he turns to look there is no one there. Formulation/clinical reasoning: Reported History of bipolar disorder however given paranoid delusions will change diagnosis to what seems more likely to be schizoaffective disorder. Not sure what has caused exacerbation of symptoms which seemed to have been brewing for the past several months; patient is amenable to medication changes -Regarding Lovenox, patient was admitted with this remaining on his medication list. However this is unusual for someone to be prescribed on Lovenox as an outpatient; administrative underwriter reviewed history of pharmacy prescriptions and there is no evidence Lovenox is ever been prescribed; patient also denies to administrative underwriter any history at all of blood clots. Seems much more likely that Lovenox was just used while patient was medically admitted for COPD exacerbation; administrative underwriter reviewed with hospitalist ADILSON who agrees. For now will discontinue Plan: CV 1:1 since 05/05 oxygen Continue home medications Discontinue Lovenox; does not seem to be any indication that patient is on this as an outpatient and was most likely just being used during his recent medical admission Gather collateral Transferred to Geriatric unit; patient agrees Patient educated on: diagnosis, medication risk/benefits, substance abuse, therapeutic strategies and medical condition Informed Consent: understands, does not understand and further education needed Reason for continued inpatient stay Substantial Risk for: inability to function Statement Statement: I have reviewed the history and physical and performed a pertinent examination on my patient. No changes have occurred unless specified. If the History and Physical was not performed prior to admission, the Hospitalist's service will be consulted for completing the admission physical. Time Spent With Patient Time: Total time managing care of this patient today ____ minutes.
--- NOTE | 2025-01-14 10:46 | HO.PM.IMCN ---
History of Present Illness Data of Consult Service Date: 01/14/25 Primary Care Provider: Unknown Physician HPI Reason for consult: Admission H&P Pt is a 54-year-old male with a PMH significant for COPD chronically on 2 L O2,?pre diabetes, GERD, who is admitted to [facility] for increased depression and vague SI. Pt initially presented to [facility] with increasing SOB. Pt was not hypoxic and workup was overall unremarkable, with CXR showing chronic basilar streaking similar to prior. However, pt was admitted to the hospital floor for wheezing upon auscultation and increased work of breathing. While hospitalized pt apparently exhibited symptoms of paranoia particularly regarding family who pt thought was hiding in his room, spine on him, and stealing his medications. Medical consult for admission H&P. ?Pt seen and examined on the [facility] psych unit where pt has no acute medical complaints. Is preoccupied with the amount of medications that he is taking and and states every time he goes to the hospital he has put on more and more medications. Pt unsure what medications he takes or why he takes them. Currently denies any difficulty breathing or SOB above baseline. Chronic cough at baseline. Denies nausea, vomiting, abdominal pain. No diarrhea. Denies significant chest pain/pressure, palpitations. Labs reviewed, significant for elevated potassium of 5.6, POC of 221, A1c 6.9, AST 72, and ALT 69. TSH low at 0.25 but free T4 WNL. Review of Systems Review of Systems: Pt has no acute medical complaints at this time. [facility] Medical History COPD (chronic obstructive pulmonary disease) Diabetes PTSD (post-traumatic stress disorder) Schizoaffective disorder, bipolar type Social History Household Members: Family Housing: House Do you presently have visiting nurse or other home services: No Patient Tobacco Use Status: Current everyday Tobacco user Tobacco use type: Cigarette Cigarettes Per Day: 1 Years Smoked: 40 Smoked in Last 30 Days: Yes e-Cigarette/Vaping Use: Never Used Patient Interested in Nicotine Replacement: Yes Patient Given Instructions on How to Stop Smoking: Yes Date Education Initiated: 01/12/25 Second Hand Smoke Exposure: No Last Used Substance Other:: no substance use x 5 years on SUBOXONE Currently Displaying Signs/Symptoms of Drug Intoxication Withdrawal: No Any prior treatment program specific to substance use: Yes Have you been hit, kicked, punched, or otherwise hurt by someone within the past year? If so, by whom?: No Do you feel safe in your current relationship?: No Current Relationship Is there a partner from a previous relationship who is making you feel unsafe now?: No Are you made to feel afraid or neglected: No Spiritual Healthcare Practices: UNKNOWN Caodaism Healthcare Practices: UNKNOWN Advance Directives: No Advance Directives Information Provided: No Do you have thoughts of harming others: None Do you have a plan to hurt others: No Plan Recently lost weight without trying: No How much weight loss: Not applicable Eating poorly because of decreased appetite: No Nutrition screen score: 0 Nutrition Risks: No Nutritional Risk service: No Sexual orientation: Straight/Heterosexual Meds Allergies Allergy/AdvReac Type Severity Reaction Status Date / Time hydrocodone Allergy Unknown Verified 01/14/25 02:11 Penicillins Allergy Unknown Verified 01/14/25 02:13 Active Medications: Current Medications Acetaminophen (Acetaminophen 325 Mg Tablet) 650 mg PO Q6H PRN PRN Reason: Headache/Pain, Scale 1-10 Al Hydroxide/Mg Hydroxide (Magnesium Hydrox/Alum Hydrox 30 Ml Oral.Susp) 30 ml PO Q6H PRN PRN Reason: Heartburn/Nausea Albuterol Sulfate (Albuterol Sulfate 90 Mcg 8 Gm Inhaler) 1 puff INHALE Q2H PRN PRN Reason: Shortness Of Breath Or Wheezing Albuterol Sulfate (Albuterol Sulfate (0.083%) 2.5 Mg/3 Ml Vial.Neb) 2.5 mg INHALE Q2H PRN PRN Reason: Shortness Of Breath Or Wheezing Clonidine HCl (Clonidine Hcl 0.2 Mg Tablet) 0.2 mg PO BID [facility] Last Admin: 01/14/25 08:42 Dose: 0.2 mg Dextrose (Dextrose 50 % 25 Gm/50 Ml Syringe) 25 gm IVPUSH Q15M PRN; Protocol PRN Reason: per Hypoglycemia Standing Ord. Divalproex Sodium (Divalproex Sodium 500 Mg Tablet.) 1,000 mg PO BID [facility] Last Admin: 01/14/25 08:42 Dose: 1,000 mg Doxepin HCl (Doxepin Hcl 25 Mg Capsule) 25 mg PO BEDTIME [facility] Last Admin: 04/04/25 06:31 Dose: Not Given Enoxaparin Sodium (Enoxaparin Sodium 40 Mg/0.4 Ml Syringe) 40 mg SUBCUT DAILY [facility] Finasteride (Finasteride 5 Mg Tablet) 5 mg PO DAILY [facility] Last Admin: 01/14/25 08:42 Dose: 5 mg Glucose (Glucose Gel 15 Gm Gel..Gram.) 15 gm PO Q15M PRN; Protocol PRN Reason: per Hypoglycemia Standing Ord. Hydroxyzine HCl (Hydroxyzine Hcl 25 Mg Tablet) 25 mg PO Q6H PRN PRN Reason: mild anxiety Insulin Human Lispro (Insulin Lispro 100 Unit/Ml 3 Ml Vial) 0 unit SUBCUT QIDACHS [facility]; Protocol Stop: 01/14/25 22:51 Last Admin: 01/14/25 08:42 Dose: 4 unit Magnesium Hydroxide (Milk Of Magnesia 30 Ml Oral.Susp) 30 ml PO DAILY PRN PRN Reason: Constipation Nicotine Polacrilex (Nicotine Polacrilex 2 Mg Gum) 4 mg BUCCAL Q2H PRN PRN Reason: Nicotine Cravings Omeprazole (Omeprazole 20 Mg Capsule.Dr) 20 mg PO BID [facility] Last Admin: 01/14/25 08:42 Dose: 20 mg Prednisone (Prednisone 20 Mg Tablet) 20 mg PO BID [facility] Last Admin: 01/14/25 08:42 Dose: 20 mg Pregabalin (Pregabalin 200 Mg Capsule) 200 mg PO BID [facility] Last Admin: 01/14/25 08:42 Dose: 200 mg Quetiapine Fumarate (Quetiapine Fumarate 50 Mg Tablet) 50 mg PO TID PRN PRN Reason: Increased paranoia/agitation Quetiapine Fumarate (Quetiapine Fumarate 100 Mg Tablet) 100 mg PO BEDTIME [facility] Last Admin: 01/14/25 06:31 Dose: Not Given Trazodone HCl (Trazodone Hcl 50 Mg Tablet) 50 mg PO BEDTIME MRX1 PRN PRN Reason: Insomnia Home Medications ?Medication ?Instructions ?Recorded ?Confirmed ?Last Taken ?Type albuterol sulfate 2.5 mg/3 mL 1 mg inhalation Q2H PRN Shortness 01/13/25 01/13/25 01/08/25 13:56 History (0.083 %) solution for nebulization Of Breath Or Wheezing calcium 500 mg PO TID PRN Indigestion 01/13/25 01/14/25 01/10/25 08:42 History clonidine 0.2 mg PO BID 01/13/25 01/13/25 01/13/25 20:19 History dextroamphetamine-amphetamine ER 1 cap PO QAM 01/13/25 01/13/25 01/13/25 08:22 History 20 mg 24hr capsule,extend release (Adderall XR) divalproex 1,000 mg PO BID 01/13/25 01/13/25 01/13/25 20:18 History doxepin 25 mg PO BEDTIME 01/13/25 01/13/25 01/13/25 20:18 History enoxaparin 40 mg subcut DAILY 01/13/25 01/13/25 Unknown History finasteride 5 mg PO DAILY 01/13/25 01/13/25 01/13/25 08:22 History insulin lispro See Protocol subcut QIDACHS 01/13/25 01/14/25 01/13/25 16:41 History 1 UNIT pantoprazole 40 mg PO BID 01/13/25 01/14/25 01/13/25 20:19 History 40 mg prednisone 20 mg PO BID 01/13/25 01/14/25 01/13/25 20:18 History pregabalin 200 mg PO BID 01/13/25 01/14/25 01/13/25 20:19 History albuterol 15 mcg inhalation Q2-3H PRN 01/14/25 01/14/25 01/08/25 13:56 History Shortness Of Breath Or Wheezing arformoterol 2 ml inhalation 01/14/25 01/13/25 08:16 History 15 MCG buprenorphine-naloxone 8 mg PO TID 01/14/25 01/14/25 01/13/25 History 8 mg lidocaine 2 patch DAILY pain 01/14/25 01/14/25 01/13/25 History pregabalin 200 mg PO BID 01/14/25 01/14/25 01/13/25 History 200 quetiapine 100 mg PO BEDTIME 01/14/25 01/14/25 01/13/25 20:19 History quetiapine 50 mg tablet 50 mg PO TID PRN Increased 01/14/25 01/14/25 01/12/25 14:00 History paranoia/agitation Physical Exam Vital Signs and Narrative: Vital Signs: Last Vital Signs Temp 97.5 F 01/14/25 09:26 Pulse 73 01/14/25 09:26 Resp 16 01/14/25 09:26 BP 128/71 01/14/25 09:26 Pulse Ox 92 01/14/25 09:26 O2 Del Method Room Air 01/14/25 09:26 BMI result Body Mass Index 34.3 General: AOx3, no acute distress Resp: Diffuse expiratory wheezing. Capable of speaking in complete sentences. On portable supplemental O2. CVS: S1, S2, RRR GI: +BS, NT, no distention Skin: Warm, dry Neuro: Cranial nerves II-XII grossly intact bilaterally. Motor grossly intact bilaterally Extremities: No edema Psych: Mildly paranoid, obsessing over medications, redirectable Results Labs 01/14/25 12:04 01/14/25 12:04 Labs: Laboratory Results - last 24 hr 01/13/25 01/14/25 22:54 08:24 POC Glucose 130 H 180 H Assessment and Plan (1) Medical clearance for psychiatric admission: Status: Acute Plan Pt is a 54-year-old male with a PMH significant for COPD chronically on 2 L O2,?pre diabetes, GERD, who is admitted to [facility] psych for increased depression and vague SI. Pt initially presented to [facility] with increasing SOB and was admitted to the hospital floor for wheezing upon auscultation and increased work of breathing. While hospitalized pt apparently exhibited symptoms of paranoia particularly regarding family who pt thought was hiding in his room, spine on him, and stealing his medications. Medical consult for admission H&P. ? Mood disorder Plan as per psychiatry Hyperkalemia Patient's potassium 5.6 We will give Lokelma 15 g p.o. Follow potassium tomorrow COPD Pt with expiratory wheezing upon auscultation, seems chronic given prior presentations to the ED Does not appear to be in acute exacerbation Pt is speaking in full sentences, breathing unlabored Continue home inhalers Continue portable O2, titrate to 2L for O2>90% Prediabetes POC has been as high as 221 A1c elevated at 6.9 Continue sliding scale insulin Pt otherwise does not want to start any additional medications at this time Encourage diabetic diet and diabetic snacking Anticoagulation Med rec indicated pt on enoxaparin However indication is unclear: Most likely was an unnecessary carry over from prior inpatient hospitalization and was on Lovenox for DVT prophylaxis Review of medical records offers no other indication for anticoagulation Lovenox can be discontinued at this time HTN Continue furosemide HLD Continue statin GERD PPI Chronic pain Continue Lyrica Thank you for allowing us to participate in the care of this patient. Signing off at this time. Please re-consult if any acute complaints or issues arise.
[2025-01-14 12:15] LABS: Hematocrit 45.3 % (42.0-52.0); Hemoglobin 14.7 g/dl (14.0-18.0); Mean Corpuscular HGB Conc 32.5 g/dl (31.0-36.0); Mean Corpuscular Hemoglobin 32.2 pg (27.0-33.0); Mean Corpuscular Volume 99.3 fL (80.0-98.0); PLT CLUMP 1; Red Blood Count 4.56 X10*6/uL (4.60-5.80); Red Cell Distribution Width 14.5 % (11.0-16.0)
[2025-01-14 12:43] LABS: Cholesterol 128 mg/dL (<200); HDL Cholesterol 58 mg/dL (>40); LDL Cholesterol Calculated 51 mg/dL (<100); Triglycerides 95 mg/dL (<150)
[2025-01-14 12:49] LABS: Platelet Count 128 X10*3/uL (160-400)
[2025-01-14 12:52] LABS: Alanine Aminotransferase 69 U/L (0-40); Albumin Level 4.2 g/dL (3.5-5.0); Alkaline Phosphatase 42 U/L (39-117); Anion Gap 18 (12-20); Aspartate Amino Transferase 72 U/L (5-37); Bilirubin Total 0.4 mg/dL (0.0-1.0); Blood Urea Nitrogen 22 mg/dL (9-16); Calcium 9.9 mg/dL (8.4-10.2); Carbon Dioxide 28 mmol/L (22-29); Chloride 103 mmol/L (96-108); Creatinine Clr Calc Pharmacy 91.6; Estimated Glomerular Filt Rate > 60; Glucose Random 121 mg/dL (60-115); Sodium 143 mmol/L (135-145); Total Protein 7.6 g/dL (6.5-8.0)
[2025-01-14 12:54] LABS: Estimated Average Glucose 151 mg/dL; Hemoglobin A1C 202.6731 umol/L; Hemoglobin A1c % 6.9 % (<6.0); Total Hemoglobin (HGBA1C) 3873.3979 umol/L
[2025-01-14 12:55] LABS: Band Neutrophils Percent 7 % (3-5); Basophils Percent Manual 1 % (0-2); Lymphocytes Percent Manual 20 % (20-40); Monocytes Percent Manual 11 % (2-11); Myelocytes Percent 2 %; Neutrophils Percent Manual 59 % (45-73)
[2025-01-14 12:56] LABS: Large Platelet PRESENT; Macrocytosis 1+ (5-14) /OIF; Platelet Estimate SLIGHTLY DECREASED (NORMAL); Platelet Morphology Comment NOTED; RBC Morphology NOTED; Tear Drop Cells 1+ (0-2) /OIF
[2025-01-14] MEDS: Buprenorphine/Naloxone 8/2 mg FILM 1 FILM SUBLINGUAL ×2 (12:56→20:32)
[2025-01-14] MEDS: Lidocaine 4 % Patch ADH..PATCH 2 PATCH TRANSDERMA (12:56)
[2025-01-14 12:57] LABS: Basophils Abs Manual 0.1 X10*3/uL (0.0-0.2); Lymphocytes Absolute Manual 1.3 X10*3/uL (1.2-4.9); Monocytes Absolute Manual 0.7 X10*3/uL (0.1-1.2); Myelocytes Absolute 0.1 X10*/uL; Neutrophils Absolute Manual 4.2 X10*3/uL (2.0-8.3); White Blood Count 6.3 X10*3/uL (4.8-10.8)
[2025-01-14 12:59] LABS: Free T4 (Free Thyroxine) 1.02 ng/dL (0.71-1.85); Thyroid Stimulating Hormone 0.25 uIU/mL (0.32-4.0)
[2025-01-14] MEDS: Nicotine Polacrilex 2 MG GUM 4 MG BUCCAL (13:04)
[2025-01-14 13:14] LABS: Vitamin B12 754 pg/mL (200-900)
--- NOTE | 2025-01-14 14:59 | PC.NURSE ---
Patient was transferred from to our unit at 14:55. Nurse to nurse completed with Taylor Lomeli, and patient oriented to the unit.
--- NOTE | 2025-01-14 15:01 | PC.NURSE ---
Per provider Don Carlson, patient's 1500 Suboxone was held due to receiving his first dose at 1256.
[2025-01-14 15:03] LABS: Potassium 5.6 mmol/L (3.3-5.1)
[2025-01-14 16:35] LABS: Glucose, Whole Blood 221 mg/dL (60-115)
[2025-01-14 20:00] VITALS: BP 131/66; PULSE 82; RESP 18; TEMP 37.1; O2SAT 96
[2025-01-14 20:23] LABS: Glucose, Whole Blood 173 mg/dL (60-115)
[2025-01-14] MEDS: Doxepin HCl 25 MG CAPSULE PO (20:28)
[2025-01-14 20:29] VITALS: BP 131/66
[2025-01-14] MEDS: QUEtiapine Fumarate 100 MG TABLET PO (20:30)
[2025-01-14] MEDS: Sodium Zirconium Cyclosilicate 5 GM POWD.PACK 15 GM PO (20:51)
[2025-01-15 06:39] LABS: Glucose, Whole Blood 167 mg/dL (60-115)
[2025-01-15 07:55] LABS: Anion Gap 13 (12-20); Blood Urea Nitrogen 19 mg/dL (9-16); Calcium 9.2 mg/dL (8.4-10.2); Carbon Dioxide 28 mmol/L (22-29); Chloride 104 mmol/L (96-108); Creatinine Clr Calc Pharmacy 99.5; Estimated Glomerular Filt Rate > 60; Glucose Random 133 mg/dL (60-115); Potassium 4.8 mmol/L (3.3-5.1); Sodium 140 mmol/L (135-145)
[2025-01-15 08:00] VITALS: BP 126/57; PULSE 66; RESP 18; O2SAT 94
[2025-01-15 08:51] VITALS: BP 126/57
[2025-01-15] MEDS: Finasteride 5 MG TABLET PO (08:51)
[2025-01-15] MEDS: cloNIDine HCL 0.2 MG TABLET PO ×2 (08:51→20:40)
[2025-01-15] MEDS: Divalproex Sodium 500 MG TABLET.DR 1000 MG PO ×2 (08:51→20:39)
[2025-01-15] MEDS: predniSONE 20 MG TABLET PO ×2 (08:51→20:39)
[2025-01-15] MEDS: Pregabalin 200 MG CAPSULE PO ×2 (08:51→20:40)
[2025-01-15] MEDS: Omeprazole 20 MG CAPSULE.DR PO ×2 (08:51→20:41)
[2025-01-15] MEDS: Buprenorphine/Naloxone 8/2 mg FILM 1 FILM SUBLINGUAL ×3 (08:51→20:39)
[2025-01-15] MEDS: Lidocaine 4 % Patch ADH..PATCH 2 PATCH TRANSDERMA (08:55)
[2025-01-15 11:30] LABS: Glucose, Whole Blood 181 mg/dL (60-115)
[2025-01-15 16:25] LABS: Glucose, Whole Blood 226 mg/dL (60-115)
--- NOTE | 2025-01-15 18:04 | P.PNPSI_ITS ---
Subjective Subjective Date of Service: 01/15/25 Reason For Visit: Anxiety Disorder Unspecified/Polysubstance Abuse Interim History: Met with patient; discussed with team Patient continues to have paranoid ideations and thought someone threw something at his head or that people were laughing at him on the unit. He agrees to starting risperidone and advertising writer reviewed risks/side effects including galactorrhea; also discussed patient's hemoglobin A1c 6.9; he says he used to be on metformin. Retention Representative could not find history of prescription for this however this medication is warranted and patient agreed after hearing about risks/side effects Mental Status Exam Mental Status Exam Narrative: Pt is alert and oriented; behavior is suspicious but cooperative and friendly on approach; calm; patient is not in distress; dressed in casual attire, rings, bracelet, tattooed arms; unkempt hair but adequate hygiene; mood is described as anxious and affect congruent, intense; eye contact appropriate; Speech is normal rate, volume and prosody and not pressured; intermittent psychomotor agitation present; thought process is organized and goal directed; Thought content is on paranoid ideations; denies any SI/HI. Intermittent AH; patient aware of some of them. Patients insight and judgment impaired Diagnostics Vital Signs (24Hr): Vital Signs - 24 hr 01/14/25 20:00 01/14/25 20:29 01/15/25 08:00 Temperature 98.8 F Pulse Rate 82 66 Respiratory Rate 18 18 Blood Pressure 131/66 131/66 126/57 L Pulse Oximetry 96 94 Oxygen Delivery Method Room Air Nasal Cannula Oxygen Flow Rate 2 01/15/25 08:51 Temperature Pulse Rate Respiratory Rate Blood Pressure 126/57 L Pulse Oximetry Oxygen Delivery Method Oxygen Flow Rate BMI result Body Mass Index 34.3 Labs 01/14/25 12:04 01/15/25 07:36 Labs: Laboratory Results - last 48 hr 01/13/25 01/14/25 01/14/25 22:54 08:24 12:04 WBC 6.3 RBC 4.56 L Hgb 14.7 Hct 45.3 MCV 99.3 H MCH 32.2 MCHC 32.5 RDW 14.5 Plt Count 128 L MPV Not Reportable Immature Gran % (Auto) Cancelled Neut % (Auto) Cancelled Lymph % (Auto) Cancelled [place] % (Auto) Cancelled Eos % (Auto) Cancelled Baso % (Auto) Cancelled Lymph # (Auto) Cancelled [place] # (Auto) Cancelled Eos # (Auto) Cancelled Baso # (Auto) Cancelled Abs Immat Gran (auto) Cancelled Absolute Neuts (auto) Cancelled Absolute Nucleated RBC 0.000 Nucleated RBC % (auto) 0.0 Neutrophils % (Manual) 59 Band Neutrophils % 7 H Lymphocytes % (Manual) 20 Monocytes % (Manual) 11 Basophils % (Manual) 1 Myelocytes % 2 Abs Neuts (Manual) 4.2 Lymphocytes # (Manual) 1.3 Monocytes # (Manual) 0.7 Basophils # (Manual) 0.1 Myelocytes # 0.1 Platelet Estimate SLIGHTLY DECREASED Large Platelets PRESENT Plt Morphology Comment NOTED RBC Morphology NOTED Macrocytosis 1+ (5-14) Tear Drop Cells 1+ (0-2) Sodium 143 Potassium 5.6 H Chloride 103 Carbon Dioxide 28 Anion Gap 18 BUN 22 H Creatinine 1.01 Estim Creat Clear Calc Estimated GFR POC Glucose 130 H 180 H Random Glucose Estimat Average Glucose Hemoglobin A1c % Calcium Total Bilirubin AST ALT Alkaline Phosphatase Total Protein Albumin Triglycerides Cholesterol LDL Cholesterol, Calc HDL Cholesterol Vitamin B12 Folate TSH Free T4 01/14/25 01/14/25 01/14/25 12:04 12:04 12:04 WBC RBC Hgb Hct MCV MCH MCHC RDW Plt Count MPV Immature Gran % (Auto) Neut % (Auto) Lymph % (Auto) [place] % (Auto) Eos % (Auto) Baso % (Auto) Lymph # (Auto) [place] # (Auto) Eos # (Auto) Baso # (Auto) Abs Immat Gran (auto) Absolute Neuts (auto) Absolute Nucleated RBC Nucleated RBC % (auto) Neutrophils % (Manual) Band Neutrophils % Lymphocytes % (Manual) Monocytes % (Manual) Basophils % (Manual) Myelocytes % Abs Neuts (Manual) Lymphocytes # (Manual) Monocytes # (Manual) Basophils # (Manual) Myelocytes # Platelet Estimate Large Platelets Plt Morphology Comment RBC Morphology Macrocytosis Tear Drop Cells Sodium Potassium Chloride Carbon Dioxide Anion Gap BUN Creatinine Cancelled Estim Creat Clear Calc 91.6 Cancelled Estimated GFR > 60 Cancelled POC Glucose Random Glucose 121 H Estimat Average Glucose 151 Hemoglobin A1c % 6.9 H Calcium 9.9 Total Bilirubin 0.4 AST 72 H ALT 69 H Alkaline Phosphatase 42 Total Protein 7.6 Albumin 4.2 Triglycerides 95 Cholesterol 128 LDL Cholesterol, Calc 51 HDL Cholesterol 58 Vitamin B12 754 Folate 15.0 TSH 0.25 L Free T4 1.02 01/14/25 01/14/25 01/15/25 16:31 20:01 06:34 WBC RBC Hgb Hct MCV MCH MCHC RDW Plt Count MPV Immature Gran % (Auto) Neut % (Auto) Lymph % (Auto) [place] % (Auto) Eos % (Auto) Baso % (Auto) Lymph # (Auto) [place] # (Auto) Eos # (Auto) Baso # (Auto) Abs Immat Gran (auto) Absolute Neuts (auto) Absolute Nucleated RBC Nucleated RBC % (auto) Neutrophils % (Manual) Band Neutrophils % Lymphocytes % (Manual) Monocytes % (Manual) Basophils % (Manual) Myelocytes % Abs Neuts (Manual) Lymphocytes # (Manual) Monocytes # (Manual) Basophils # (Manual) Myelocytes # Platelet Estimate Large Platelets Plt Morphology Comment RBC Morphology Macrocytosis Tear Drop Cells Sodium Potassium Chloride Carbon Dioxide Anion Gap BUN Creatinine Estim Creat Clear Calc Estimated GFR POC Glucose 221 H 173 H 167 H Random Glucose Estimat Average Glucose Hemoglobin A1c % Calcium Total Bilirubin AST ALT Alkaline Phosphatase Total Protein Albumin Triglycerides Cholesterol LDL Cholesterol, Calc HDL Cholesterol Vitamin B12 Folate TSH Free T4 01/15/25 01/15/25 01/15/25 07:36 11:27 16:21 WBC RBC Hgb Hct MCV MCH MCHC RDW Plt Count MPV Immature Gran % (Auto) Neut % (Auto) Lymph % (Auto) [place] % (Auto) Eos % (Auto) Baso % (Auto) Lymph # (Auto) [place] # (Auto) Eos # (Auto) Baso # (Auto) Abs Immat Gran (auto) Absolute Neuts (auto) Absolute Nucleated RBC Nucleated RBC % (auto) Neutrophils % (Manual) Band Neutrophils % Lymphocytes % (Manual) Monocytes % (Manual) Basophils % (Manual) Myelocytes % Abs Neuts (Manual) Lymphocytes # (Manual) Monocytes # (Manual) Basophils # (Manual) Myelocytes # Platelet Estimate Large Platelets Plt Morphology Comment RBC Morphology Macrocytosis Tear Drop Cells Sodium 140 Potassium 4.8 Chloride 104 Carbon Dioxide 28 Anion Gap 13 BUN 19 H Creatinine 0.93 Estim Creat Clear Calc 99.5 Estimated GFR > 60 POC Glucose 181 H 226 H Random Glucose 133 H Estimat Average Glucose Hemoglobin A1c % Calcium 9.2 D Total Bilirubin AST ALT Alkaline Phosphatase Total Protein Albumin Triglycerides Cholesterol LDL Cholesterol, Calc HDL Cholesterol Vitamin B12 Folate TSH Free T4 Medications Medications Current Medications Acetaminophen (Acetaminophen 325 Mg Tablet) 650 mg PO Q6H PRN PRN Reason: Headache/Pain, Scale 1-10 Al Hydroxide/Mg Hydroxide (Magnesium Hydrox/Alum Hydrox 30 Ml Oral.Susp) 30 ml PO Q6H PRN PRN Reason: Heartburn/Nausea Albuterol Sulfate (Albuterol Sulfate 90 Mcg 8 Gm Inhaler) 1 puff INHALE Q2H PRN PRN Reason: Shortness Of Breath Or Wheezing Albuterol Sulfate (Albuterol Sulfate (0.083%) 2.5 Mg/3 Ml Vial.Neb) 2.5 mg INHALE Q2H PRN PRN Reason: Shortness Of Breath Or Wheezing Buprenorphine/Naloxone (Buprenorphine/Naloxone 8/2 Mg Film) 1 film SUBLINGUAL TID [facility] Last Admin: 01/15/25 14:56 Dose: 1 film Clonidine HCl (Clonidine Hcl 0.2 Mg Tablet) 0.2 mg PO BID [facility] Last Admin: 01/15/25 08:51 Dose: 0.2 mg Dextrose (Dextrose 50 % 25 Gm/50 Ml Syringe) 25 gm IVPUSH Q15M PRN; Protocol PRN Reason: per Hypoglycemia Standing Ord. Divalproex Sodium (Divalproex Sodium 500 Mg Tablet.) 1,000 mg PO BID [facility] Last Admin: 01/15/25 08:51 Dose: 1,000 mg Doxepin HCl (Doxepin Hcl 25 Mg Capsule) 25 mg PO BEDTIME [facility] Last Admin: 01/14/25 20:28 Dose: 25 mg Finasteride (Finasteride 5 Mg Tablet) 5 mg PO DAILY [facility] Last Admin: 01/15/25 08:51 Dose: 5 mg Glucose (Glucose Gel 15 Gm Gel..Gram.) 15 gm PO Q15M PRN; Protocol PRN Reason: per Hypoglycemia Standing Ord. Hydroxyzine HCl (Hydroxyzine Hcl 25 Mg Tablet) 25 mg PO Q6H PRN PRN Reason: mild anxiety Lidocaine (Lidocaine 4 % Patch Adh..Patch) 2 patch TRANSDERMA DAILY [facility] Last Admin: 01/15/25 08:55 Dose: 2 patch Magnesium Hydroxide (Milk Of Magnesia 30 Ml Oral.Susp) 30 ml PO DAILY PRN PRN Reason: Constipation Nicotine Polacrilex (Nicotine Polacrilex 2 Mg Gum) 4 mg BUCCAL Q2H PRN PRN Reason: Nicotine Cravings Last Admin: 01/14/25 13:04 Dose: 4 mg Omeprazole (Omeprazole 20 Mg Capsule.) 20 mg PO BID [facility] Last Admin: 01/15/25 08:51 Dose: 20 mg Prednisone (Prednisone 20 Mg Tablet) 20 mg PO BID [facility] Last Admin: 01/15/25 08:51 Dose: 20 mg Pregabalin (Pregabalin 200 Mg Capsule) 200 mg PO BID [facility] Last Admin: 01/15/25 08:51 Dose: 200 mg Quetiapine Fumarate (Quetiapine Fumarate 50 Mg Tablet) 50 mg PO TID PRN PRN Reason: Increased paranoia/agitation Quetiapine Fumarate (Quetiapine Fumarate 100 Mg Tablet) 100 mg PO BEDTIME [facility] Last Admin: 01/14/25 20:30 Dose: 100 mg Trazodone HCl (Trazodone Hcl 50 Mg Tablet) 50 mg PO BEDTIME MRX1 PRN PRN Reason: Insomnia Allergies Allergies Allergy/AdvReac Type Severity Reaction Status Date / Time hydrocodone Allergy Unknown Verified 01/14/25 02:11 Penicillins Allergy Unknown Verified 01/14/25 02:13 Assessment & Plan Assessment & Plan (1) Medical clearance for psychiatric admission: Status: Acute Code(s): Z00.8 - Encounter for other general examination Plan HPI: Patient is a 54-year-old male with history of bipolar disorder, PTSD, substance abuse in sustained remission, COPD on home O2 (05/05), non-IDDM, uses a walker who presents for worsening paranoid ideations following medical admission for mild COPD exacerbation. On the unit, patient very anxious about his belongings and demanded being able to watch staff examine them. Patient said he was at home at his sister's where he has been living for 4 months and had trouble breathing and so wanted to go to the hospital where he was treated for COPD exacerbation. While there patient expressed paranoid ideations. Patient reports he has been sober for 4 years and was living in a sober home until about 4 months ago when he moved into his sister's house. He says ever since then, his nephew, her son has been doing little things, subtle things to antagonize him. His sister denies this and will say her son is not even in the house however patient knows this is not true. He says this has been escalating over the past few weeks. This past week, he was at [employer] (he wants advertising writer to know that the police brought him there so he could buy a cell phone) to by a cell phone and upon returned to his home, he was upstairs and said he heard his nephew say that he was going to steal the cell phone; he laments that again his sister insisted that her son (patient's nephew) was not in the house at all however patient is convinced that he was. Patient says while at the hospital, he knows that his sister got admitted there because he saw what he thought was the back of her ducking into a room and isn't fueled by hospital staff that said she was not there. Patient also believes that his sister is giving him extra medications in a box of medications some of which are not his and is upset that she does not bring the full box to him to prove it; he also thinks that she will discontinue some medications his doctor wants him to be on for some unknown reason. Patient is beside himself with grief because he loves his sister and can not understand why over these past 4 months she is turning against him and allowing her son to antagonize him. Patient acknowledges that he will intermittently have auditory hallucinations of hearing a word being said but when he turns to look there is no one there. Formulation/clinical reasoning: Reported History of bipolar disorder however given paranoid delusions will change diagnosis to what seems more likely to be schizoaffective disorder. Not sure what has caused exacerbation of symptoms which seemed to have been brewing for the past several months; patient is amenable to medication changes -Regarding Lovenox, patient was admitted with this remaining on his medication list. However this is unusual for someone to be prescribed on Lovenox as an outpatient; advertising writer reviewed history of pharmacy prescriptions and there is no evidence Lovenox is ever been prescribed; patient also denies to advertising writer any history at all of blood clots. Seems much more likely that Lovenox was just used while patient was medically admitted for COPD exacerbation; advertising writer reviewed with hospitalist ADILSON who agrees. For now will discontinue Hospital course: 4/5 Patient continues to have paranoid ideations and thought someone threw something at his head or that people were laughing at him on the unit.? He agrees to starting risperidone and advertising writer reviewed risks/side effects including galactorrhea; also discussed patient's hemoglobin A1c 6.9 and patient is snacking throughout the day; he says he used to be on metformin; says he has never been on insulin sliding scale and does not want to be on 1 now.? Retention Representative could not find history of prescription for this however this medication is warranted; advertising writer reviewed risks and patient agrees -potassium returned to WNL -start Risperdal 0.5 mg b.i.d. -Start metformin XL 500 mg q.h.s. -will DC insulin sliding scale since patient does not want it and sugars remain below 300 Plan: CV 1:1 since 05/05 oxygen Continue home medications Start Risperdal 0.5 mg b.i.d. Start metformin XL 500 mg q.h.s. Discontinue insulin sliding scale: Patient does not want Discontinue Lovenox; does not seem to be any indication that patient is on this as an outpatient and was most likely just being used during his recent medical admission Gather collateral Hyperkalemia: resolved (received Lokelma 15 g p.o.) COPD Pt with expiratory wheezing upon auscultation, seems chronic given prior presentations to the ED Does not appear to be in acute exacerbation Pt is speaking in full sentences, breathing unlabored Continue home inhalers Continue portable O2, titrate to 2L for O2>90% Prediabetes POC has been as high as 221 A1c elevated at 6.9 Anticoagulation Med rec indicated pt on enoxaparin However indication is unclear: Most likely was an unnecessary carry over from prior inpatient hospitalization and was on Lovenox for DVT prophylaxis Review of medical records offers no other indication for anticoagulation Lovenox can be discontinued at this time HTN Continue furosemide HLD Continue statin GERD PPI Chronic pain Continue Lyrica Patient educated on: diagnosis, medication risk/benefits and medical condition Informed Consent: understands, does not understand and further education needed Reason for continued inpatient stay Substantial Risk for: rapid decompensation Time Spent With Patient Time: Total time managing care of this patient today ____ minutes.
[2025-01-15] MEDS: metFORMIN HCl ER 500 MG TAB.ER.24H PO (18:50)
[2025-01-15] MEDS: risperiDONE 0.5 MG TABLET PO (18:50)
[2025-01-15 19:51] LABS: Glucose, Whole Blood 185 mg/dL (60-115)
[2025-01-15 20:00] VITALS: BP 127/68; PULSE 67; RESP 16; TEMP 36.6; O2SAT 96
[2025-01-15 20:40] VITALS: BP 127/68
[2025-01-15] MEDS: Doxepin HCl 25 MG CAPSULE PO (20:40)
[2025-01-15] MEDS: QUEtiapine Fumarate 100 MG TABLET PO (20:41)
[2025-01-16] MEDS: hydrOXYzine HCL 25 MG TABLET PO (01:59)
[2025-01-16] MEDS: traZODone HCL 50 MG TABLET PO (01:59)
[2025-01-16 06:38] LABS: Glucose, Whole Blood 189 mg/dL (60-115)
[2025-01-16 07:59] VITALS: BP 119/71; PULSE 73; RESP 16; TEMP 36.4; O2SAT 96
[2025-01-16] MEDS: Lidocaine 4 % Patch ADH..PATCH 2 PATCH TRANSDERMA (08:03)
[2025-01-16] MEDS: Buprenorphine/Naloxone 8/2 mg FILM 1 FILM SUBLINGUAL ×3 (08:03→20:06)
[2025-01-16] MEDS: Omeprazole 20 MG CAPSULE.DR PO ×2 (08:04→20:05)
[2025-01-16] MEDS: Finasteride 5 MG TABLET PO (08:04)
[2025-01-16] MEDS: Divalproex Sodium 500 MG TABLET.DR 1000 MG PO ×2 (08:04→20:05)
[2025-01-16] MEDS: cloNIDine HCL 0.2 MG TABLET PO ×2 (08:04→20:05)
[2025-01-16] MEDS: Pregabalin 200 MG CAPSULE PO ×2 (08:04→20:05)
[2025-01-16] MEDS: predniSONE 20 MG TABLET PO ×2 (08:04→20:07)
[2025-01-16] MEDS: risperiDONE 0.5 MG TABLET PO ×2 (08:04→13:11)
[2025-01-16 11:17] LABS: Glucose, Whole Blood 192 mg/dL (60-115)
[2025-01-16 16:23] LABS: Glucose, Whole Blood 247 mg/dL (60-115)
--- NOTE | 2025-01-16 17:40 | HO.PSYCHPN ---
Subjective Subjective Date of Service: 01/16/25 Reason For Visit: Anxiety Disorder Unspecified/Polysubstance Abuse Interim History: Met with patient; discussed with team Patient said he reached out to his sister and he is trying to repair the relationship. Still thinks that she is trying to full him but wants to reconcile; some small, temporary acknowledgement that perhaps he is misinterpreting. Patient asked about Adderall which he is on at home; song writer said it is on hold now until this other issue can be resolved patient again discussed snacking and says he will leave his snacking to before bedtime and abstaining during the day Mental Status Exam Mental Status Exam Narrative: Pt is alert and oriented; behavior is suspicious but cooperative and friendly on approach; calm; patient is not in distress; dressed in casual attire, rings, bracelet, tattooed arms; unkempt hair but adequate hygiene; mood is described as ok and affect congruent, more calm; eye contact appropriate; Speech is normal rate, volume and prosody and not pressured; intermittent psychomotor agitation present; thought process is organized and goal directed; Thought content is on paranoid ideations; denies any SI/HI. Intermittent AH; patient aware of some of them. Patients insight and judgment impaired Diagnostics Vital Signs (24Hr): Vital Signs - 24 hr 01/15/25 20:00 01/15/25 20:40 01/16/25 07:59 Temperature 97.8 F 97.5 F Pulse Rate 67 73 Respiratory Rate 16 16 Blood Pressure 127/68 127/68 119/71 Pulse Oximetry 96 96 Oxygen Delivery Method Room Air Nasal Cannula Oxygen Flow Rate 2 BMI result Body Mass Index 34.3 Labs 01/14/25 12:04 01/15/25 07:36 Labs: Laboratory Results - last 48 hr 01/14/25 01/15/25 01/15/25 20:01 06:34 07:36 Sodium 140 Potassium 4.8 Chloride 104 Carbon Dioxide 28 Anion Gap 13 BUN 19 H Creatinine 0.93 Estim Creat Clear Calc 99.5 Estimated GFR > 60 POC Glucose 173 H 167 H Random Glucose 133 H Calcium 9.2 D 01/15/25 01/15/25 01/15/25 11:27 16:21 19:46 Sodium Potassium Chloride Carbon Dioxide Anion Gap BUN Creatinine Estim Creat Clear Calc Estimated GFR POC Glucose 181 H 226 H 185 H Random Glucose Calcium 01/16/25 01/16/25 01/16/25 06:33 11:13 16:19 Sodium Potassium Chloride Carbon Dioxide Anion Gap BUN Creatinine Estim Creat Clear Calc Estimated GFR POC Glucose 189 H 192 H 247 H Random Glucose Calcium Medications Medications Current Medications Acetaminophen (Acetaminophen 325 Mg Tablet) 650 mg PO Q6H PRN PRN Reason: Headache/Pain, Scale 1-10 Al Hydroxide/Mg Hydroxide (Magnesium Hydrox/Alum Hydrox 30 Ml Oral.Susp) 30 ml PO Q6H PRN PRN Reason: Heartburn/Nausea Albuterol Sulfate (Albuterol Sulfate 90 Mcg 8 Gm Inhaler) 1 puff INHALE Q2H PRN PRN Reason: Shortness Of Breath Or Wheezing Albuterol Sulfate (Albuterol Sulfate (0.083%) 2.5 Mg/3 Ml Vial.Neb) 2.5 mg INHALE Q2H PRN PRN Reason: Shortness Of Breath Or Wheezing Buprenorphine/Naloxone (Buprenorphine/Naloxone 8/2 Mg Film) 1 film SUBLINGUAL TID ON LICENSE OF [facility] Last Admin: 01/16/25 14:02 Dose: 1 film Clonidine HCl (Clonidine Hcl 0.2 Mg Tablet) 0.2 mg PO BID ON LICENSE OF [facility] Last Admin: 01/16/25 08:04 Dose: 0.2 mg Dextrose (Dextrose 50 % 25 Gm/50 Ml Syringe) 25 gm IVPUSH Q15M PRN; Protocol PRN Reason: per Hypoglycemia Standing Ord. Divalproex Sodium (Divalproex Sodium 500 Mg Tablet.) 1,000 mg PO BID ON LICENSE OF [facility] Last Admin: 01/16/25 08:04 Dose: 1,000 mg Doxepin HCl (Doxepin Hcl 25 Mg Capsule) 25 mg PO BEDTIME ON LICENSE OF [facility] Last Admin: 01/15/25 20:40 Dose: 25 mg Finasteride (Finasteride 5 Mg Tablet) 5 mg PO DAILY ON LICENSE OF [facility] Last Admin: 01/16/25 08:04 Dose: 5 mg Glucose (Glucose Gel 15 Gm Gel..Gram.) 15 gm PO Q15M PRN; Protocol PRN Reason: per Hypoglycemia Standing Ord. Hydroxyzine HCl (Hydroxyzine Hcl 25 Mg Tablet) 25 mg PO Q6H PRN PRN Reason: mild anxiety Last Admin: 01/16/25 01:59 Dose: 25 mg Lidocaine (Lidocaine 4 % Patch Adh..Patch) 2 patch TRANSDERMA DAILY ON LICENSE OF [facility] Last Admin: 01/16/25 08:03 Dose: 1 patch Magnesium Hydroxide (Milk Of Magnesia 30 Ml Oral.Susp) 30 ml PO DAILY PRN PRN Reason: Constipation Metformin HCl (Metformin Hcl Er 500 Mg Tab.Er.24h) 500 mg PO DAILY@1900 ON LICENSE OF [facility] Last Admin: 01/15/25 18:50 Dose: 500 mg Nicotine Polacrilex (Nicotine Polacrilex 2 Mg Gum) 4 mg BUCCAL Q2H PRN PRN Reason: Nicotine Cravings Last Admin: 01/14/25 13:04 Dose: 4 mg Omeprazole (Omeprazole 20 Mg Capsule.Dr) 20 mg PO BID ON LICENSE OF [facility] Last Admin: 01/16/25 08:04 Dose: 20 mg Prednisone (Prednisone 20 Mg Tablet) 20 mg PO BID ON LICENSE OF [facility] Last Admin: 01/16/25 08:04 Dose: 20 mg Pregabalin (Pregabalin 200 Mg Capsule) 200 mg PO BID ON LICENSE OF [facility] Last Admin: 01/16/25 08:04 Dose: 200 mg Quetiapine Fumarate (Quetiapine Fumarate 100 Mg Tablet) 100 mg PO BEDTIME ON LICENSE OF [facility] Last Admin: 01/15/25 20:41 Dose: 100 mg Risperidone (Risperidone 0.5 Mg Tablet) 0.5 mg PO BID@0900,1300 ON LICENSE OF [facility] Last Admin: 01/16/25 13:11 Dose: 0.5 mg Trazodone HCl (Trazodone Hcl 50 Mg Tablet) 50 mg PO BEDTIME MRX1 PRN PRN Reason: Insomnia Last Admin: 01/16/25 01:59 Dose: 50 mg Allergies Allergies Allergy/AdvReac Type Severity Reaction Status Date / Time hydrocodone Allergy Unknown Verified 01/14/25 02:11 Penicillins Allergy Unknown Verified 01/14/25 02:13 Assessment & Plan Assessment & Plan (1) Medical clearance for psychiatric admission: Status: Acute Code(s): Z00.8 - Encounter for other general examination Plan HPI: Patient is a 54-year-old male with history of bipolar disorder, PTSD, substance abuse in sustained remission, COPD on home O2 (05/05), non-IDDM, uses a walker who presents for worsening paranoid ideations following medical admission for mild COPD exacerbation. On the unit, patient very anxious about his belongings and demanded being able to watch staff examine them. Patient said he was at home at his sister's where he has been living for 4 months and had trouble breathing and so wanted to go to the hospital where he was treated for COPD exacerbation. While there patient expressed paranoid ideations. Patient reports he has been sober for 4 years and was living in a sober home until about 4 months ago when he moved into his sister's house. He says ever since then, his nephew, her son has been doing little things, subtle things to antagonize him. His sister denies this and will say her son is not even in the house however patient knows this is not true. He says this has been escalating over the past few weeks. This past week, he was at [employer] (he wants song writer to know that the police brought him there so he could buy a cell phone) to by a cell phone and upon returned to his home, he was upstairs and said he heard his nephew say that he was going to steal the cell phone; he laments that again his sister insisted that her son (patient's nephew) was not in the house at all however patient is convinced that he was. Patient says while at the hospital, he knows that his sister got admitted there because he saw what he thought was the back of her ducking into a room and isn't fueled by hospital staff that said she was not there. Patient also believes that his sister is giving him extra medications in a box of medications some of which are not his and is upset that she does not bring the full box to him to prove it; he also thinks that she will discontinue some medications his doctor wants him to be on for some unknown reason. Patient is beside himself with grief because he loves his sister and can not understand why over these past 4 months she is turning against him and allowing her son to antagonize him. Patient acknowledges that he will intermittently have auditory hallucinations of hearing a word being said but when he turns to look there is no one there. Formulation/clinical reasoning: Reported History of bipolar disorder however given paranoid delusions will change diagnosis to what seems more likely to be schizoaffective disorder. Not sure what has caused exacerbation of symptoms which seemed to have been brewing for the past several months; patient is amenable to medication changes -Regarding Lovenox, patient was admitted with this remaining on his medication list. However this is unusual for someone to be prescribed on Lovenox as an outpatient; song writer reviewed history of pharmacy prescriptions and there is no evidence Lovenox is ever been prescribed; patient also denies to song writer any history at all of blood clots. Seems much more likely that Lovenox was just used while patient was medically admitted for COPD exacerbation; song writer reviewed with hospitalist ADILSON who agrees. For now will discontinue Hospital course: 01/15 Patient continues to have paranoid ideations and thought someone threw something at his head or that people were laughing at him on the unit.? He agrees to starting risperidone and song writer reviewed risks/side effects including galactorrhea; also discussed patient's hemoglobin A1c 6.9 and patient is snacking throughout the day; he says he used to be on metformin; says he has never been on insulin sliding scale and does not want to be on 1 now.? [facility] could not find history of prescription for this however this medication is warranted; song writer reviewed risks and patient agrees -potassium returned to WNL -start Risperdal 0.5 mg b.i.d. -Start metformin XL 500 mg q.h.s. -will DC insulin sliding scale since patient does not want it and sugars remain below 300 01/16 Patient said he reached out to his sister and he is trying to repair the relationship. Still thinks that she is trying to full him but wants to reconcile; some small, temporary acknowledgement that perhaps he is misinterpreting. Patient asked about Adderall which he is on at home; song writer said it is on hold now until this other issue can be resolved patient again discussed snacking and says he will leave his snacking to before bedtime and abstaining during the day -will hold off increasing Risperdal for now Plan: CV 1:1 since 05/05 oxygen Continue home medications continue Risperdal 0.5 mg b.i.d. Started metformin XL 500 mg q.h.s. Discontinue insulin sliding scale: Patient does not want Discontinue Lovenox; does not seem to be any indication that patient is on this as an outpatient and was most likely just being used during his recent medical admission Gather collateral Hyperkalemia: resolved (received Lokelma 15 g p.o.) COPD Pt with expiratory wheezing upon auscultation, seems chronic given prior presentations to the ED Does not appear to be in acute exacerbation Pt is speaking in full sentences, breathing unlabored Continue home inhalers Continue portable O2, titrate to 2L for O2>90% Prediabetes POC has been as high as 221 A1c elevated at 6.9 Anticoagulation Med rec indicated pt on enoxaparin However indication is unclear: Most likely was an unnecessary carry over from prior inpatient hospitalization and was on Lovenox for DVT prophylaxis Review of medical records offers no other indication for anticoagulation Lovenox can be discontinued at this time HTN Continue furosemide HLD Continue statin GERD PPI Chronic pain Continue Lyrica Patient educated on: diagnosis, medication risk/benefits and medical condition Informed Consent: understands, does not understand and further education needed Reason for continued inpatient stay Substantial Risk for: rapid decompensation Time Spent With Patient Time: Total time managing care of this patient today ____ minutes.
[2025-01-16] MEDS: metFORMIN HCl ER 500 MG TAB.ER.24H PO (18:23)
[2025-01-16 20:03] VITALS: BP 127/73; PULSE 71; RESP 16; TEMP 36.4; O2SAT 96
[2025-01-16 20:05] VITALS: BP 122/73
[2025-01-16] MEDS: QUEtiapine Fumarate 100 MG TABLET PO (20:05)
[2025-01-16] MEDS: Doxepin HCl 25 MG CAPSULE PO (20:05)
[2025-01-17] MEDS: hydrOXYzine HCL 25 MG TABLET PO (03:18)
[2025-01-17 05:16] LABS: Glucose, Whole Blood 222 mg/dL (60-115)
[2025-01-17 08:00] VITALS: BP 129/73; PULSE 73; RESP 16; TEMP 36.4; O2SAT 96
[2025-01-17 08:30] VITALS: BP 129/73
[2025-01-17] MEDS: Pregabalin 200 MG CAPSULE PO ×2 (08:30→21:11)
[2025-01-17] MEDS: Buprenorphine/Naloxone 8/2 mg FILM 1 FILM SUBLINGUAL ×3 (08:30→20:31)
[2025-01-17] MEDS: cloNIDine HCL 0.2 MG TABLET PO ×2 (08:30→21:10)
[2025-01-17] MEDS: Omeprazole 20 MG CAPSULE.DR PO ×2 (08:31→21:10)
[2025-01-17] MEDS: Divalproex Sodium 500 MG TABLET.DR 1000 MG PO ×2 (08:31→21:10)
--- NOTE | 2025-01-17 08:31 | HO.PSYCHPN ---
Documented by User: Tawny Angela NP 01/19/25 09:55 Subjective Subjective Date of Service: 01/17/25 Reason For Visit: Anxiety Disorder Unspecified/Polysubstance Abuse Subjective Notes: Conditional Voluntary Interim History: Pt slept through the night. He reports he was staying at sister's house who was attempting to control him. He finds it concerning but also suspicious that he is now on more medications for his medical conditions and requires oxygen. He reports this was not the case a year ago. He reports he does not trust his sister's fiance. He reports that although sister would denied that her children were there, he knows they were there. He's hesitant about us talking to his sister, although reports he may be able to return there. He denies SI/HI. He is visible on the unit, irritable edge. taking medications. Review of Systems Review of Systems Pt has no acute medical complaints at this time. Mental Status Exam Mental Status Exam Narrative: Pt is alert and oriented to place, month and year. His orientation to situation is vague and off as he reports he is here because he was sweating; behavior is suspicious but cooperative and friendly on approach; calm; patient is not in distress; dressed in casual attire, rings, bracelet, tattooed arms; unkempt hair but adequate hygiene; mood is described as ok and affect irritable; eye contact appropriate; Speech is normal rate, volume and prosody and not pressured; intermittent psychomotor agitation present; thought process is organized and goal directed; Thought content is on paranoid ideations; denies any SI/HI. Intermittent AH; patient aware of some of them. Patients insight and judgment impaired Diagnostics Vital Signs (24Hr): Vital Signs - 24 hr 01/16/25 20:03 01/16/25 20:05 Temperature 97.5 F Pulse Rate 71 Respiratory Rate 16 Blood Pressure 127/73 122/73 Pulse Oximetry 96 Oxygen Delivery Method Nasal Cannula BMI result Body Mass Index 34.3 Labs 01/14/25 12:04 01/15/25 07:36 Labs: Laboratory Results - last 48 hr 01/15/25 01/15/25 01/15/25 11:27 16:21 19:46 POC Glucose 181 H 226 H 185 H 01/16/25 01/16/25 01/16/25 06:33 11:13 16:19 POC Glucose 189 H 192 H 247 H 01/17/25 05:10 POC Glucose 222 H Medications Medications Current Medications Acetaminophen (Acetaminophen 325 Mg Tablet) 650 mg PO Q6H PRN PRN Reason: Headache/Pain, Scale 1-10 Al Hydroxide/Mg Hydroxide (Magnesium Hydrox/Alum Hydrox 30 Ml Oral.Susp) 30 ml PO Q6H PRN PRN Reason: Heartburn/Nausea Albuterol Sulfate (Albuterol Sulfate 90 Mcg 8 Gm Inhaler) 1 puff INHALE Q2H PRN PRN Reason: Shortness Of Breath Or Wheezing Albuterol Sulfate (Albuterol Sulfate (0.083%) 2.5 Mg/3 Ml Vial.Neb) 2.5 mg INHALE Q2H PRN PRN Reason: Shortness Of Breath Or Wheezing Buprenorphine/Naloxone (Buprenorphine/Naloxone 8/2 Mg Film) 1 film SUBLINGUAL TID [facility] Last Admin: 01/16/25 20:06 Dose: 1 film Clonidine HCl (Clonidine Hcl 0.2 Mg Tablet) 0.2 mg PO BID [facility] Last Admin: 01/16/25 20:05 Dose: 0.2 mg Dextrose (Dextrose 50 % 25 Gm/50 Ml Syringe) 25 gm IVPUSH Q15M PRN; Protocol PRN Reason: per Hypoglycemia Standing Ord. Divalproex Sodium (Divalproex Sodium 500 Mg Tablet.) 1,000 mg PO BID [facility] Last Admin: 01/16/25 20:05 Dose: 1,000 mg Doxepin HCl (Doxepin Hcl 25 Mg Capsule) 25 mg PO BEDTIME [facility] Last Admin: 01/16/25 20:05 Dose: 25 mg Finasteride (Finasteride 5 Mg Tablet) 5 mg PO DAILY [facility] Last Admin: 01/16/25 08:04 Dose: 5 mg Glucose (Glucose Gel 15 Gm Gel..Gram.) 15 gm PO Q15M PRN; Protocol PRN Reason: per Hypoglycemia Standing Ord. Hydroxyzine HCl (Hydroxyzine Hcl 25 Mg Tablet) 25 mg PO Q6H PRN PRN Reason: mild anxiety Last Admin: 01/17/25 03:18 Dose: 25 mg Lidocaine (Lidocaine 4 % Patch Adh..Patch) 2 patch TRANSDERMA DAILY [facility] Last Admin: 01/16/25 08:03 Dose: 1 patch Magnesium Hydroxide (Milk Of Magnesia 30 Ml Oral.Susp) 30 ml PO DAILY PRN PRN Reason: Constipation Metformin HCl (Metformin Hcl Er 500 Mg Tab.Er.24h) 500 mg PO DAILY@1900 [facility] Last Admin: 01/16/25 18:23 Dose: 500 mg Nicotine Polacrilex (Nicotine Polacrilex 2 Mg Gum) 4 mg BUCCAL Q2H PRN PRN Reason: Nicotine Cravings Last Admin: 01/14/25 13:04 Dose: 4 mg Omeprazole (Omeprazole 20 Mg Capsule.Dr) 20 mg PO BID [facility] Last Admin: 01/16/25 20:05 Dose: 20 mg Prednisone (Prednisone 20 Mg Tablet) 20 mg PO BID [facility] Last Admin: 01/16/25 20:07 Dose: 20 mg Pregabalin (Pregabalin 200 Mg Capsule) 200 mg PO BID [facility] Last Admin: 01/16/25 20:05 Dose: 200 mg Quetiapine Fumarate (Quetiapine Fumarate 100 Mg Tablet) 100 mg PO BEDTIME [facility] Last Admin: 01/16/25 20:05 Dose: 100 mg Risperidone (Risperidone 0.5 Mg Tablet) 0.5 mg PO BID@0900,1300 [facility] Last Admin: 01/16/25 13:11 Dose: 0.5 mg Trazodone HCl (Trazodone Hcl 50 Mg Tablet) 50 mg PO BEDTIME MRX1 PRN PRN Reason: Insomnia Last Admin: 01/16/25 01:59 Dose: 50 mg Allergies Allergies Allergy/AdvReac Type Severity Reaction Status Date / Time hydrocodone Allergy Unknown Verified 01/14/25 02:11 Penicillins Allergy Unknown Verified 01/14/25 02:13 Assessment & Plan Assessment & Plan (1) Schizoaffective disorder, bipolar type: Status: Acute Code(s): F25.0 - Schizoaffective disorder, bipolar type Plan HPI: Patient is a 54-year-old male with history of bipolar disorder, PTSD, substance abuse in sustained remission, COPD on home O2 (05/05), non-IDDM, uses a walker who presents for worsening paranoid ideations following medical admission for mild COPD exacerbation. On the unit, patient very anxious about his belongings and demanded being able to watch staff examine them. Patient said he was at home at his sister's where he has been living for 4 months and had trouble breathing and so wanted to go to the hospital where he was treated for COPD exacerbation. While there patient expressed paranoid ideations. Patient reports he has been sober for 4 years and was living in a sober home until about 4 months ago when he moved into his sister's house. He says ever since then, his nephew, her son has been doing little things, subtle things to antagonize him. His sister denies this and will say her son is not even in the house however patient knows this is not true. He says this has been escalating over the past few weeks. This past week, he was at [employer] (he wants program writer to know that the police brought him there so he could buy a cell phone) to by a cell phone and upon returned to his home, he was upstairs and said he heard his nephew say that he was going to steal the cell phone; he laments that again his sister insisted that her son (patient's nephew) was not in the house at all however patient is convinced that he was. Patient says while at the hospital, he knows that his sister got admitted there because he saw what he thought was the back of her ducking into a room and isn't fueled by hospital staff that said she was not there. Patient also believes that his sister is giving him extra medications in a box of medications some of which are not his and is upset that she does not bring the full box to him to prove it; he also thinks that she will discontinue some medications his doctor wants him to be on for some unknown reason. Patient is beside himself with grief because he loves his sister and can not understand why over these past 4 months she is turning against him and allowing her son to antagonize him. Patient acknowledges that he will intermittently have auditory hallucinations of hearing a word being said but when he turns to look there is no one there. Formulation/clinical reasoning: Reported History of bipolar disorder however given paranoid delusions will change diagnosis to what seems more likely to be schizoaffective disorder. Not sure what has caused exacerbation of symptoms which seemed to have been brewing for the past several months; patient is amenable to medication changes -Regarding Lovenox, patient was admitted with this remaining on his medication list. However this is unusual for someone to be prescribed on Lovenox as an outpatient; program writer reviewed history of pharmacy prescriptions and there is no evidence Lovenox is ever been prescribed; patient also denies to program writer any history at all of blood clots. Seems much more likely that Lovenox was just used while patient was medically admitted for COPD exacerbation; program writer reviewed with hospitalist ADILSON who agrees. For now will discontinue Hospital course: 01/15 Patient continues to have paranoid ideations and thought someone threw something at his head or that people were laughing at him on the unit.? He agrees to starting risperidone and program writer reviewed risks/side effects including galactorrhea; also discussed patient's hemoglobin A1c 6.9 and patient is snacking throughout the day; he says he used to be on metformin; says he has never been on insulin sliding scale and does not want to be on 1 now.? [employer] could not find history of prescription for this however this medication is warranted; program writer reviewed risks and patient agrees -potassium returned to WNL -start Risperdal 0.5 mg b.i.d. -Start metformin XL 500 mg q.h.s. -will DC insulin sliding scale since patient does not want it and sugars remain below 300 01/16 Patient said he reached out to his sister and he is trying to repair the relationship. Still thinks that she is trying to full him but wants to reconcile; some small, temporary acknowledgement that perhaps he is misinterpreting. Patient asked about Adderall which he is on at home; program writer said it is on hold now until this other issue can be resolved patient again discussed snacking and says he will leave his snacking to before bedtime and abstaining during the day -will hold off increasing Risperdal for now 01/17 increase risperidone 1mg po BID. Plan: CV 1:1 since 05/05 oxygen Continue home medications continue Risperdal 0.5 mg b.i.d. Started metformin XL 500 mg q.h.s. Discontinue insulin sliding scale: Patient does not want Discontinue Lovenox; does not seem to be any indication that patient is on this as an outpatient and was most likely just being used during his recent medical admission Gather collateral Hyperkalemia: resolved (received Lokelma 15 g p.o.) COPD Pt with expiratory wheezing upon auscultation, seems chronic given prior presentations to the ED Does not appear to be in acute exacerbation Pt is speaking in full sentences, breathing unlabored Continue home inhalers Continue portable O2, titrate to 2L for O2>90% Prediabetes POC has been as high as 221 A1c elevated at 6.9 Anticoagulation Med rec indicated pt on enoxaparin However indication is unclear: Most likely was an unnecessary carry over from prior inpatient hospitalization and was on Lovenox for DVT prophylaxis Review of medical records offers no other indication for anticoagulation Lovenox can be discontinued at this time HTN Continue furosemide HLD Continue statin GERD PPI Chronic pain Continue Lyrica Patient educated on: diagnosis, medication risk/benefits and medical condition Informed Consent: understands, does not understand and further e Reason for continued inpatient stay Substantial Risk for: inability to function Time Spent With Patient Time: Total time managing care of this patient today ____ minutes. Documented by User: Pierce Patricio MD 01/17/25 11:24 Subjective Subjective Reason For Visit: Anxiety Disorder Unspecified/Polysubstance Abuse Diagnostics Labs 01/14/25 12:04 01/15/25 07:36 Assessment & Plan Assessment & Plan (1) Schizoaffective disorder, bipolar type: Status: Acute Code(s): F25.0 - Schizoaffective disorder, bipolar type Plan HPI: Patient is a 54-year-old male with history of bipolar disorder, PTSD, substance abuse in sustained remission, COPD on home O2 (05/05), non-IDDM, uses a walker who presents for worsening paranoid ideations following medical admission for mild COPD exacerbation. On the unit, patient very anxious about his belongings and demanded being able to watch staff examine them. Patient said he was at home at his sister's where he has been living for 4 months and had trouble breathing and so wanted to go to the hospital where he was treated for COPD exacerbation. While there patient expressed paranoid ideations. Patient reports he has been sober for 4 years and was living in a sober home until about 4 months ago when he moved into his sister's house. He says ever since then, his nephew, her son has been doing little things, subtle things to antagonize him. His sister denies this and will say her son is not even in the house however patient knows this is not true. He says this has been escalating over the past few weeks. This past week, he was at [employer] (he wants program writer to know that the police brought him there so he could buy a cell phone) to by a cell phone and upon returned to his home, he was upstairs and said he heard his nephew say that he was going to steal the cell phone; he laments that again his sister insisted that her son (patient's nephew) was not in the house at all however patient is convinced that he was. Patient says while at the hospital, he knows that his sister got admitted there because he saw what he thought was the back of her ducking into a room and isn't fueled by hospital staff that said she was not there. Patient also believes that his sister is giving him extra medications in a box of medications some of which are not his and is upset that she does not bring the full box to him to prove it; he also thinks that she will discontinue some medications his doctor wants him to be on for some unknown reason. Patient is beside himself with grief because he loves his sister and can not understand why over these past 4 months she is turning against him and allowing her son to antagonize him. Patient acknowledges that he will intermittently have auditory hallucinations of hearing a word being said but when he turns to look there is no one there. Formulation/clinical reasoning: Reported History of bipolar disorder however given paranoid delusions will change diagnosis to what seems more likely to be schizoaffective disorder. Not sure what has caused exacerbation of symptoms which seemed to have been brewing for the past several months; patient is amenable to medication changes -Regarding Lovenox, patient was admitted with this remaining on his medication list. However this is unusual for someone to be prescribed on Lovenox as an outpatient; program writer reviewed history of pharmacy prescriptions and there is no evidence Lovenox is ever been prescribed; patient also denies to program writer any history at all of blood clots. Seems much more likely that Lovenox was just used while patient was medically admitted for COPD exacerbation; program writer reviewed with hospitalist ADILSON who agrees. For now will discontinue Hospital course: 01/15 Patient continues to have paranoid ideations and thought someone threw something at his head or that people were laughing at him on the unit.? He agrees to starting risperidone and program writer reviewed risks/side effects including galactorrhea; also discussed patient's hemoglobin A1c 6.9 and patient is snacking throughout the day; he says he used to be on metformin; says he has never been on insulin sliding scale and does not want to be on 1 now.? [employer] could not find history of prescription for this however this medication is warranted; program writer reviewed risks and patient agrees -potassium returned to WNL -start Risperdal 0.5 mg b.i.d. -Start metformin XL 500 mg q.h.s. -will DC insulin sliding scale since patient does not want it and sugars remain below 300 01/16 Patient said he reached out to his sister and he is trying to repair the relationship. Still thinks that she is trying to full him but wants to reconcile; some small, temporary acknowledgement that perhaps he is misinterpreting. Patient asked about Adderall which he is on at home; program writer said it is on hold now until this other issue can be resolved patient again discussed snacking and says he will leave his snacking to before bedtime and abstaining during the day -will hold off increasing Risperdal for now Plan: CV 1:1 since 05/05 oxygen Continue home medications continue Risperdal 0.5 mg b.i.d. Started metformin XL 500 mg q.h.s. Discontinue insulin sliding scale: Patient does not want Discontinue Lovenox; does not seem to be any indication that patient is on this as an outpatient and was most likely just being used during his recent medical admission Gather collateral Hyperkalemia: resolved (received Lokelma 15 g p.o.) COPD Pt with expiratory wheezing upon auscultation, seems chronic given prior presentations to the ED Does not appear to be in acute exacerbation Pt is speaking in full sentences, breathing unlabored Continue home inhalers Continue portable O2, titrate to 2L for O2>90% Prediabetes POC has been as high as 221 A1c elevated at 6.9 Anticoagulation Med rec indicated pt on enoxaparin However indication is unclear: Most likely was an unnecessary carry over from prior inpatient hospitalization and was on Lovenox for DVT prophylaxis Review of medical records offers no other indication for anticoagulation Lovenox can be discontinued at this time HTN Continue furosemide HLD Continue statin GERD PPI Chronic pain Continue Lyrica Patient educated on: diagnosis, medication risk/benefits and medical condition Informed Consent: understands, does not understand and further e
[2025-01-17] MEDS: risperiDONE 0.5 MG TABLET PO ×2 (08:32→13:25)
[2025-01-17] MEDS: predniSONE 20 MG TABLET PO ×2 (08:32→21:11)
[2025-01-17] MEDS: Finasteride 5 MG TABLET PO (08:33)
[2025-01-17] MEDS: Nicotine Polacrilex 2 MG GUM 4 MG BUCCAL (15:14)
[2025-01-17] MEDS: metFORMIN HCl ER 500 MG TAB.ER.24H PO (18:40)
[2025-01-17 20:00] VITALS: BP 133/72; PULSE 76; RESP 18; TEMP 36.1; O2SAT 95
[2025-01-17] MEDS: Doxepin HCl 25 MG CAPSULE PO (21:10)
[2025-01-17] MEDS: QUEtiapine Fumarate 100 MG TABLET PO (21:11)
[2025-01-17] MEDS: risperiDONE 1 MG TABLET PO (21:11)
[2025-01-17] MEDS: Acetaminophen 325 MG TABLET 650 MG PO (21:12)
[2025-01-17] MEDS: traZODone HCL 50 MG TABLET PO (21:12)
[2025-01-18] MEDS: traZODone HCL 50 MG TABLET PO ×2 (00:37→21:52)
[2025-01-18 05:51] LABS: Glucose, Whole Blood 262 mg/dL (60-115)
[2025-01-18 07:55] VITALS: BP 117/70; PULSE 76; RESP 18; TEMP 36.9; O2SAT 97
[2025-01-18] MEDS: Omeprazole 20 MG CAPSULE.DR PO ×2 (08:09→21:53)
[2025-01-18] MEDS: Pregabalin 200 MG CAPSULE PO ×2 (08:09→21:53)
[2025-01-18] MEDS: Divalproex Sodium 500 MG TABLET.DR 1000 MG PO ×2 (08:09→21:52)
[2025-01-18] MEDS: cloNIDine HCL 0.2 MG TABLET PO ×2 (08:09→21:55)
[2025-01-18] MEDS: Finasteride 5 MG TABLET PO (08:09)
[2025-01-18] MEDS: predniSONE 20 MG TABLET PO ×2 (08:09→21:54)
[2025-01-18] MEDS: risperiDONE 1 MG TABLET PO ×2 (08:09→21:52)
[2025-01-18] MEDS: Buprenorphine/Naloxone 8/2 mg FILM 1 FILM SUBLINGUAL ×3 (08:10→20:15)
[2025-01-18] MEDS: Lidocaine 4 % Patch ADH..PATCH 2 PATCH TRANSDERMA (08:15)
[2025-01-18] MEDS: metFORMIN HCl ER 500 MG TAB.ER.24H PO (18:19)
[2025-01-18 20:00] VITALS: BP 128/76; PULSE 77; RESP 18; TEMP 36.6; O2SAT 96
[2025-01-18] MEDS: QUEtiapine Fumarate 100 MG TABLET PO (21:53)
[2025-01-18] MEDS: Doxepin HCl 25 MG CAPSULE PO (21:54)
[2025-01-18 21:55] VITALS: BP 128/77
--- NOTE | 2025-01-18 22:42 | P.PNPSI_ITS ---
Subjective Subjective Date of Service: 01/18/25 Reason For Visit: Anxiety Disorder Unspecified/Polysubstance Abuse Subjective Notes: Conditional Voluntary Interim History: Pt slept through the night. He presents with irritable edge. He does report that he feels safe here and trusts the staff somewhat. He reports he does not know if he wants us to communicate with his sister as he is worried that we will believe her and not him.He believes his medications have been tampered, that sister wants to control him and take his money. He does report medications here are helpful and he plans to continue taking them. He also reports he would rather have VNA at home, which seems reasonable. He denies SI/HI. Slightly calmer but still highly suspicious. Review of Systems Review of Systems Pt has no acute medical complaints at this time. Mental Status Exam Mental Status Exam Narrative: Pt is alert and oriented to place, month and year. His orientation to situation is vague and off as he reports he is here because he was sweating; behavior is suspicious but cooperative and friendly on approach; calm; patient is not in distress; dressed in casual attire, rings, bracelet, tattooed arms; unkempt hair but adequate hygiene; mood is described as ok and affect irritable; eye contact appropriate; Speech is normal rate, volume and prosody and not pressured; intermittent psychomotor agitation present; thought process is organized and goal directed; Thought content is on paranoid ideations; denies any SI/HI. Intermittent AH; patient aware of some of them. Patients insight and judgment impaired Diagnostics Vital Signs (24Hr): Vital Signs - 24 hr 01/18/25 07:55 01/18/25 20:00 01/18/25 21:55 Temperature 98.4 F 98 F Pulse Rate 76 77 Respiratory Rate 18 18 Blood Pressure 117/70 128/76 128/77 Pulse Oximetry 97 96 Oxygen Delivery Method Room Air Nasal Cannula Oxygen Flow Rate 2 BMI result Body Mass Index 34.3 Labs 01/14/25 12:04 01/15/25 07:36 Labs: Laboratory Results - last 48 hr 01/17/25 01/18/25 05:10 05:45 POC Glucose 222 H 262 H Medications Medications Current Medications Acetaminophen (Acetaminophen 325 Mg Tablet) 650 mg PO Q6H PRN PRN Reason: Headache/Pain, Scale 1-10 Last Admin: 01/17/25 21:12 Dose: 650 mg Al Hydroxide/Mg Hydroxide (Magnesium Hydrox/Alum Hydrox 30 Ml Oral.Susp) 30 ml PO Q6H PRN PRN Reason: Heartburn/Nausea Albuterol Sulfate (Albuterol Sulfate 90 Mcg 8 Gm Inhaler) 1 puff INHALE Q2H PRN PRN Reason: Shortness Of Breath Or Wheezing Albuterol Sulfate (Albuterol Sulfate (0.083%) 2.5 Mg/3 Ml Vial.Neb) 2.5 mg INHALE Q2H PRN PRN Reason: Shortness Of Breath Or Wheezing Buprenorphine/Naloxone (Buprenorphine/Naloxone 8/2 Mg Film) 1 film SUBLINGUAL TID COUNTS INCLUDE 234 BEDS AT THE [facility] Last Admin: 01/18/25 20:15 Dose: 1 film Clonidine HCl (Clonidine Hcl 0.2 Mg Tablet) 0.2 mg PO BID COUNTS INCLUDE 234 BEDS AT THE [facility] Last Admin: 01/18/25 21:55 Dose: 0.2 mg Dextrose (Dextrose 50 % 25 Gm/50 Ml Syringe) 25 gm IVPUSH Q15M PRN; Protocol PRN Reason: per Hypoglycemia Standing Ord. Divalproex Sodium (Divalproex Sodium 500 Mg Tablet.Dr) 1,000 mg PO BID COUNTS INCLUDE 234 BEDS AT THE [facility] Last Admin: 01/18/25 21:52 Dose: 1,000 mg Doxepin HCl (Doxepin Hcl 25 Mg Capsule) 25 mg PO BEDTIME COUNTS INCLUDE 234 BEDS AT THE [facility] Last Admin: 01/18/25 21:54 Dose: 25 mg Finasteride (Finasteride 5 Mg Tablet) 5 mg PO DAILY COUNTS INCLUDE 234 BEDS AT THE [facility] Last Admin: 01/18/25 08:09 Dose: 5 mg Glucose (Glucose Gel 15 Gm Gel..Gram.) 15 gm PO Q15M PRN; Protocol PRN Reason: per Hypoglycemia Standing Ord. Lidocaine (Lidocaine 4 % Patch Adh..Patch) 2 patch TRANSDERMA DAILY COUNTS INCLUDE 234 BEDS AT THE [facility] Last Admin: 01/18/25 08:15 Dose: 2 patch Magnesium Hydroxide (Milk Of Magnesia 30 Ml Oral.Susp) 30 ml PO DAILY PRN PRN Reason: Constipation Metformin HCl (Metformin Hcl Er 500 Mg Tab.Er.24h) 500 mg PO DAILY@1900 COUNTS INCLUDE 234 BEDS AT THE [facility] Last Admin: 01/18/25 18:19 Dose: 500 mg Nicotine Polacrilex (Nicotine Polacrilex 2 Mg Gum) 4 mg BUCCAL Q2H PRN PRN Reason: Nicotine Cravings Last Admin: 01/17/25 15:14 Dose: 4 mg Omeprazole (Omeprazole 20 Mg Capsule.) 20 mg PO BID COUNTS INCLUDE 234 BEDS AT THE [facility] Last Admin: 01/18/25 21:53 Dose: 20 mg Prednisone (Prednisone 20 Mg Tablet) 20 mg PO BID COUNTS INCLUDE 234 BEDS AT THE [facility] Last Admin: 01/18/25 21:54 Dose: 20 mg Pregabalin (Pregabalin 200 Mg Capsule) 200 mg PO BID COUNTS INCLUDE 234 BEDS AT THE [facility] Last Admin: 01/18/25 21:53 Dose: 200 mg Quetiapine Fumarate (Quetiapine Fumarate 100 Mg Tablet) 100 mg PO BEDTIME COUNTS INCLUDE 234 BEDS AT THE [facility] Last Admin: 01/18/25 21:53 Dose: 100 mg Risperidone (Risperidone 1 Mg Tablet) 1 mg PO BID COUNTS INCLUDE 234 BEDS AT THE [facility] Last Admin: 01/18/25 21:52 Dose: 1 mg Trazodone HCl (Trazodone Hcl 50 Mg Tablet) 50 mg PO BEDTIME MRX1 PRN PRN Reason: Insomnia Last Admin: 01/18/25 21:52 Dose: 50 mg Allergies Allergies Allergy/AdvReac Type Severity Reaction Status Date / Time hydrocodone Allergy Unknown Verified 01/14/25 02:11 Penicillins Allergy Unknown Verified 01/14/25 02:13 Assessment & Plan Assessment & Plan (1) Schizoaffective disorder, bipolar type: Status: Acute Code(s): F25.0 - Schizoaffective disorder, bipolar type Plan HPI: Patient is a 54-year-old male with history of bipolar disorder, PTSD, substance abuse in sustained remission, COPD on home O2 (05/05), non-IDDM, uses a walker who presents for worsening paranoid ideations following medical admission for mild COPD exacerbation. On the unit, patient very anxious about his belongings and demanded being able to watch staff examine them. Patient said he was at home at his sister's where he has been living for 4 months and had trouble breathing and so wanted to go to the hospital where he was treated for COPD exacerbation. While there patient expressed paranoid ideations. Patient reports he has been sober for 4 years and was living in a sober home until about 4 months ago when he moved into his sister's house. He says ever since then, his nephew, her son has been doing little things, subtle things to antagonize him. His sister denies this and will say her son is not even in the house however patient knows this is not true. He says this has been escalating over the past few weeks. This past week, he was at [employer] (he wants speech writer to know that the police brought him there so he could buy a cell phone) to by a cell phone and upon returned to his home, he was upstairs and said he heard his nephew say that he was going to steal the cell phone; he laments that again his sister insisted that her son (patient's nephew) was not in the house at all however patient is convinced that he was. Patient says while at the hospital, he knows that his sister got admitted there because he saw what he thought was the back of her ducking into a room and isn't fueled by hospital staff that said she was not there. Patient also believes that his sister is giving him extra medications in a box of medications some of which are not his and is upset that she does not bring the full box to him to prove it; he also thinks that she will discontinue some medications his doctor wants him to be on for some unknown reason. Patient is beside himself with grief because he loves his sister and can not understand why over these past 4 months she is turning against him and allowing her son to antagonize him. Patient acknowledges that he will intermittently have auditory hallucinations of hearing a word being said but when he turns to look there is no one there. Formulation/clinical reasoning: Reported History of bipolar disorder however given paranoid delusions will change diagnosis to what seems more likely to be schizoaffective disorder. Not sure what has caused exacerbation of symptoms which seemed to have been brewing for the past several months; patient is amenable to medication changes -Regarding Lovenox, patient was admitted with this remaining on his medication list. However this is unusual for someone to be prescribed on Lovenox as an outpatient; speech writer reviewed history of pharmacy prescriptions and there is no evidence Lovenox is ever been prescribed; patient also denies to speech writer any history at all of blood clots. Seems much more likely that Lovenox was just used while patient was medically admitted for COPD exacerbation; speech writer reviewed with hospitalist ADILSON who agrees. For now will discontinue Hospital course: 4/5 Patient continues to have paranoid ideations and thought someone threw something at his head or that people were laughing at him on the unit.? He agrees to starting risperidone and speech writer reviewed risks/side effects including galactorrhea; also discussed patient's hemoglobin A1c 6.9 and patient is snacking throughout the day; he says he used to be on metformin; says he has never been on insulin sliding scale and does not want to be on 1 now.? Senior Clinical Data Manager could not find history of prescription for this however this medication is warranted; speech writer reviewed risks and patient agrees -potassium returned to WNL -start Risperdal 0.5 mg b.i.d. -Start metformin XL 500 mg q.h.s. -will DC insulin sliding scale since patient does not want it and sugars remain below 300 01/16 Patient said he reached out to his sister and he is trying to repair the relationship. Still thinks that she is trying to full him but wants to reconcile; some small, temporary acknowledgement that perhaps he is misinterpreting. Patient asked about Adderall which he is on at home; speech writer said it is on hold now until this other issue can be resolved patient again discussed snacking and says he will leave his snacking to before bedtime and abstaining during the day -will hold off increasing Risperdal for now 01/17 increased risperidone 1mg po BID. 01/18 continue risperidone 1mg po BID Plan: CV 1:1 since 05/05 oxygen Continue home medications continue Risperdal 0.5 mg b.i.d. Started metformin XL 500 mg q.h.s. Discontinue insulin sliding scale: Patient does not want Discontinue Lovenox; does not seem to be any indication that patient is on this as an outpatient and was most likely just being used during his recent medical admission Gather collateral Hyperkalemia: resolved (received Lokelma 15 g p.o.) COPD Pt with expiratory wheezing upon auscultation, seems chronic given prior presentations to the ED Does not appear to be in acute exacerbation Pt is speaking in full sentences, breathing unlabored Continue home inhalers Continue portable O2, titrate to 2L for O2>90% Prediabetes POC has been as high as 221 A1c elevated at 6.9 Anticoagulation Med rec indicated pt on enoxaparin However indication is unclear: Most likely was an unnecessary carry over from prior inpatient hospitalization and was on Lovenox for DVT prophylaxis Review of medical records offers no other indication for anticoagulation Lovenox can be discontinued at this time HTN Continue furosemide HLD Continue statin GERD PPI Chronic pain Continue Lyrica Patient educated on: diagnosis, medication risk/benefits and medical condition Informed Consent: understands, does not understand and further e Reason for continued inpatient stay Substantial Risk for: inability to function Time Spent With Patient Time: Total time managing care of this patient today ____ minutes.
[2025-01-19] MEDS: traZODone HCL 50 MG TABLET PO ×2 (01:45→22:52)
[2025-01-19 06:22] LABS: Glucose, Whole Blood 204 mg/dL (60-115)
[2025-01-19 08:00] VITALS: BP 124/72; PULSE 67; RESP 18; TEMP 36.7; O2SAT 97
[2025-01-19] MEDS: Divalproex Sodium 500 MG TABLET.DR 1000 MG PO ×2 (08:36→22:52)
[2025-01-19] MEDS: Omeprazole 20 MG CAPSULE.DR PO ×2 (08:36→22:52)
[2025-01-19] MEDS: risperiDONE 1 MG TABLET PO ×2 (08:37→22:52)
[2025-01-19] MEDS: cloNIDine HCL 0.2 MG TABLET PO ×2 (08:37→22:53)
[2025-01-19] MEDS: Buprenorphine/Naloxone 8/2 mg FILM 1 FILM SUBLINGUAL ×3 (08:37→20:57)
[2025-01-19] MEDS: Finasteride 5 MG TABLET PO (08:38)
[2025-01-19] MEDS: predniSONE 20 MG TABLET PO ×2 (08:41→22:52)
[2025-01-19] MEDS: Pregabalin 200 MG CAPSULE PO ×2 (08:41→22:53)
--- NOTE | 2025-01-19 14:36 | HO.PSYCHPN ---
Subjective Subjective Date of Service: 01/19/25 Reason For Visit: Anxiety Disorder Unspecified/Polysubstance Abuse Subjective Notes: Conditional Voluntary Interim History: Pt slept through the night. He continues to presents with irritable edge and demanding at times. He does report that he feels safe here and trusts the staff somewhat.He is visible on the unit, social with select peers.Still reporting paranoid ideas towards sister. He does report medications here are helpful and he plans to continue taking them. He also reports he would rather have VNA at home, which seems reasonable. He denies SI/HI. Slightly calmer but still highly suspicious. Review of Systems Review of Systems Pt has no acute medical complaints at this time. Mental Status Exam Mental Status Exam Narrative: Pt is alert and oriented to place, month and year. His orientation to situation is vague and off as he reports he is here because he was sweating; behavior is suspicious but cooperative and friendly on approach; calm; patient is not in distress; dressed in casual attire, rings, bracelet, tattooed arms; unkempt hair but adequate hygiene; mood is described as ok and affect irritable; eye contact appropriate; Speech is normal rate, volume and prosody and not pressured; intermittent psychomotor agitation present; thought process is organized and goal directed; Thought content is on paranoid ideations; denies any SI/HI. Intermittent AH; patient aware of some of them. Patients insight and judgment impaired Diagnostics Vital Signs (24Hr): Vital Signs - 24 hr 01/18/25 20:00 01/18/25 21:55 01/19/25 08:00 Temperature 98 F 98.1 F Pulse Rate 77 67 Respiratory Rate 18 18 Blood Pressure 128/76 128/77 124/72 Pulse Oximetry 96 97 Oxygen Delivery Method Nasal Cannula Nasal Cannula Oxygen Flow Rate 2 2 BMI result Body Mass Index 34.3 Labs 01/14/25 12:04 01/15/25 07:36 Labs: Laboratory Results - last 48 hr 01/18/25 01/19/25 05:45 06:03 POC Glucose 262 H 204 H Medications Medications Current Medications Acetaminophen (Acetaminophen 325 Mg Tablet) 650 mg PO Q6H PRN PRN Reason: Headache/Pain, Scale 1-10 Last Admin: 01/17/25 21:12 Dose: 650 mg Al Hydroxide/Mg Hydroxide (Magnesium Hydrox/Alum Hydrox 30 Ml Oral.Susp) 30 ml PO Q6H PRN PRN Reason: Heartburn/Nausea Albuterol Sulfate (Albuterol Sulfate 90 Mcg 8 Gm Inhaler) 1 puff INHALE Q2H PRN PRN Reason: Shortness Of Breath Or Wheezing Albuterol Sulfate (Albuterol Sulfate (0.083%) 2.5 Mg/3 Ml Vial.Neb) 2.5 mg INHALE Q2H PRN PRN Reason: Shortness Of Breath Or Wheezing Buprenorphine/Naloxone (Buprenorphine/Naloxone 8/2 Mg Film) 1 film SUBLINGUAL TID [facility] Last Admin: 01/19/25 14:22 Dose: 1 film Clonidine HCl (Clonidine Hcl 0.2 Mg Tablet) 0.2 mg PO BID [facility] Last Admin: 01/19/25 08:37 Dose: 0.2 mg Dextrose (Dextrose 50 % 25 Gm/50 Ml Syringe) 25 gm IVPUSH Q15M PRN; Protocol PRN Reason: per Hypoglycemia Standing Ord. Divalproex Sodium (Divalproex Sodium 500 Mg Tablet.) 1,000 mg PO BID [facility] Last Admin: 01/19/25 08:36 Dose: 1,000 mg Doxepin HCl (Doxepin Hcl 25 Mg Capsule) 25 mg PO BEDTIME [facility] Last Admin: 01/18/25 21:54 Dose: 25 mg Finasteride (Finasteride 5 Mg Tablet) 5 mg PO DAILY [facility] Last Admin: 01/19/25 08:38 Dose: 5 mg Glucose (Glucose Gel 15 Gm Gel..Gram.) 15 gm PO Q15M PRN; Protocol PRN Reason: per Hypoglycemia Standing Ord. Lidocaine (Lidocaine 4 % Patch Adh..Patch) 2 patch TRANSDERMA DAILY [facility] Last Admin: 01/19/25 08:44 Dose: Not Given Magnesium Hydroxide (Milk Of Magnesia 30 Ml Oral.Susp) 30 ml PO DAILY PRN PRN Reason: Constipation Metformin HCl (Metformin Hcl Er 500 Mg Tab.Er.24h) 500 mg PO DAILY@1900 [facility] Last Admin: 01/18/25 18:19 Dose: 500 mg Nicotine Polacrilex (Nicotine Polacrilex 2 Mg Gum) 4 mg BUCCAL Q2H PRN PRN Reason: Nicotine Cravings Last Admin: 01/17/25 15:14 Dose: 4 mg Omeprazole (Omeprazole 20 Mg Capsule.) 20 mg PO BID [facility] Last Admin: 01/19/25 08:36 Dose: 20 mg Prednisone (Prednisone 20 Mg Tablet) 20 mg PO BID [facility] Last Admin: 01/19/25 08:41 Dose: 20 mg Pregabalin (Pregabalin 200 Mg Capsule) 200 mg PO BID [facility] Last Admin: 01/19/25 08:41 Dose: 200 mg Quetiapine Fumarate (Quetiapine Fumarate 100 Mg Tablet) 100 mg PO BEDTIME [facility] Last Admin: 01/18/25 21:53 Dose: 100 mg Risperidone (Risperidone 1 Mg Tablet) 1 mg PO BID [facility] Last Admin: 01/19/25 08:37 Dose: 1 mg Trazodone HCl (Trazodone Hcl 50 Mg Tablet) 50 mg PO BEDTIME MRX1 PRN PRN Reason: Insomnia Last Admin: 01/19/25 01:45 Dose: 50 mg Allergies Allergies Allergy/AdvReac Type Severity Reaction Status Date / Time hydrocodone Allergy Unknown Verified 01/14/25 02:11 Penicillins Allergy Unknown Verified 01/14/25 02:13 Assessment & Plan Assessment & Plan (1) Schizoaffective disorder, bipolar type: Status: Acute Code(s): F25.0 - Schizoaffective disorder, bipolar type Plan HPI: Patient is a 54-year-old male with history of bipolar disorder, PTSD, substance abuse in sustained remission, COPD on home O2 (05/05), non-IDDM, uses a walker who presents for worsening paranoid ideations following medical admission for mild COPD exacerbation. On the unit, patient very anxious about his belongings and demanded being able to watch staff examine them. Patient said he was at home at his sister's where he has been living for 4 months and had trouble breathing and so wanted to go to the hospital where he was treated for COPD exacerbation. While there patient expressed paranoid ideations. Patient reports he has been sober for 4 years and was living in a sober home until about 4 months ago when he moved into his sister's house. He says ever since then, his nephew, her son has been doing little things, subtle things to antagonize him. His sister denies this and will say her son is not even in the house however patient knows this is not true. He says this has been escalating over the past few weeks. This past week, he was at [employer] (he wants sign writer letterer or painter to know that the police brought him there so he could buy a cell phone) to by a cell phone and upon returned to his home, he was upstairs and said he heard his nephew say that he was going to steal the cell phone; he laments that again his sister insisted that her son (patient's nephew) was not in the house at all however patient is convinced that he was. Patient says while at the hospital, he knows that his sister got admitted there because he saw what he thought was the back of her ducking into a room and isn't fueled by hospital staff that said she was not there. Patient also believes that his sister is giving him extra medications in a box of medications some of which are not his and is upset that she does not bring the full box to him to prove it; he also thinks that she will discontinue some medications his doctor wants him to be on for some unknown reason. Patient is beside himself with grief because he loves his sister and can not understand why over these past 4 months she is turning against him and allowing her son to antagonize him. Patient acknowledges that he will intermittently have auditory hallucinations of hearing a word being said but when he turns to look there is no one there. Formulation/clinical reasoning: Reported History of bipolar disorder however given paranoid delusions will change diagnosis to what seems more likely to be schizoaffective disorder. Not sure what has caused exacerbation of symptoms which seemed to have been brewing for the past several months; patient is amenable to medication changes -Regarding Lovenox, patient was admitted with this remaining on his medication list. However this is unusual for someone to be prescribed on Lovenox as an outpatient; sign writer letterer or painter reviewed history of pharmacy prescriptions and there is no evidence Lovenox is ever been prescribed; patient also denies to sign writer letterer or painter any history at all of blood clots. Seems much more likely that Lovenox was just used while patient was medically admitted for COPD exacerbation; sign writer letterer or painter reviewed with hospitalist ADILSON who agrees. For now will discontinue Hospital course: 4/5 Patient continues to have paranoid ideations and thought someone threw something at his head or that people were laughing at him on the unit.? He agrees to starting risperidone and sign writer letterer or painter reviewed risks/side effects including galactorrhea; also discussed patient's hemoglobin A1c 6.9 and patient is snacking throughout the day; he says he used to be on metformin; says he has never been on insulin sliding scale and does not want to be on 1 now.? Search Director could not find history of prescription for this however this medication is warranted; sign writer letterer or painter reviewed risks and patient agrees -potassium returned to WNL -start Risperdal 0.5 mg b.i.d. -Start metformin XL 500 mg q.h.s. -will DC insulin sliding scale since patient does not want it and sugars remain below 300 01/16 Patient said he reached out to his sister and he is trying to repair the relationship. Still thinks that she is trying to full him but wants to reconcile; some small, temporary acknowledgement that perhaps he is misinterpreting. Patient asked about Adderall which he is on at home; sign writer letterer or painter said it is on hold now until this other issue can be resolved patient again discussed snacking and says he will leave his snacking to before bedtime and abstaining during the day -will hold off increasing Risperdal for now 01/17 increased risperidone 1mg po BID. 01/18 continue risperidone 1mg po BID 01/19 continue tx but plan to increase risperidone in next few days. Plan: CV 1:1 since 05/05 oxygen Continue home medications continue Risperdal 0.5 mg b.i.d. Started metformin XL 500 mg q.h.s. Discontinue insulin sliding scale: Patient does not want Discontinue Lovenox; does not seem to be any indication that patient is on this as an outpatient and was most likely just being used during his recent medical admission Gather collateral Hyperkalemia: resolved (received Lokelma 15 g p.o.) COPD Pt with expiratory wheezing upon auscultation, seems chronic given prior presentations to the ED Does not appear to be in acute exacerbation Pt is speaking in full sentences, breathing unlabored Continue home inhalers Continue portable O2, titrate to 2L for O2>90% Prediabetes POC has been as high as 221 A1c elevated at 6.9 Anticoagulation Med rec indicated pt on enoxaparin However indication is unclear: Most likely was an unnecessary carry over from prior inpatient hospitalization and was on Lovenox for DVT prophylaxis Review of medical records offers no other indication for anticoagulation Lovenox can be discontinued at this time HTN Continue furosemide HLD Continue statin GERD PPI Chronic pain Continue Lyrica Patient educated on: diagnosis, medication risk/benefits and medical condition Informed Consent: understands, does not understand and further e Reason for continued inpatient stay Substantial Risk for: inability to function Time Spent With Patient Time: Total time managing care of this patient today ____ minutes.
[2025-01-19] MEDS: Acetaminophen 325 MG TABLET 650 MG PO (17:18)
[2025-01-19 20:00] VITALS: BP 106/59; PULSE 86; RESP 18; TEMP 36; O2SAT 95
[2025-01-19] MEDS: Doxepin HCl 25 MG CAPSULE PO (22:52)
[2025-01-19] MEDS: QUEtiapine Fumarate 100 MG TABLET PO (22:52)
[2025-01-20 06:43] LABS: Glucose, Whole Blood 331 mg/dL (60-115)
[2025-01-20 07:00] VITALS: BMI 34.9
[2025-01-20 08:00] VITALS: BP 126/74; PULSE 84; RESP 16; TEMP 36.2; O2SAT 97
[2025-01-20] MEDS: Buprenorphine/Naloxone 8/2 mg FILM 1 FILM SUBLINGUAL ×3 (08:39→20:30)
[2025-01-20] MEDS: Pregabalin 200 MG CAPSULE PO ×2 (08:40→22:21)
[2025-01-20] MEDS: risperiDONE 1 MG TABLET PO (08:40)
[2025-01-20] MEDS: Omeprazole 20 MG CAPSULE.DR PO ×2 (08:40→22:19)
[2025-01-20] MEDS: Finasteride 5 MG TABLET PO (08:40)
[2025-01-20 08:41] VITALS: BP 116/66
[2025-01-20] MEDS: metFORMIN HCl ER 500 MG TAB.ER.24H PO (08:41)
[2025-01-20] MEDS: Divalproex Sodium 500 MG TABLET.DR 1000 MG PO ×2 (08:41→22:21)
[2025-01-20] MEDS: predniSONE 20 MG TABLET PO ×2 (08:41→22:21)
[2025-01-20] MEDS: cloNIDine HCL 0.2 MG TABLET PO ×2 (08:41→22:19)
[2025-01-20] MEDS: Acetaminophen 325 MG TABLET 650 MG PO (13:36)
--- NOTE | 2025-01-20 17:09 | P.PNPSI_ITS ---
Subjective Subjective Date of Service: 01/20/25 Reason For Visit: Anxiety Disorder Unspecified/Polysubstance Abuse Subjective Notes: Conditional Voluntary Interim History: Pt slept through the night. Pt appears calmer but can be demanding and irritable. He is less focused on paranoid related to sister. This technical writer spoke with prescriber from [facility], who reports she has been working with pt for over a year, she reports they have noticed suspiciousness but not overt paranoia as he is showing now. She agreed with medication changes, including risperidone and stopping adderall. Review of Systems Review of Systems Pt has no acute medical complaints at this time. Mental Status Exam Mental Status Exam Narrative: Pt is alert and oriented to place, month and year. His orientation to situation is vague and off as he reports he is here because he was sweating; behavior is suspicious but cooperative and friendly on approach; calm; patient is not in distress; dressed in casual attire, rings, bracelet, tattooed arms; unkempt hair but adequate hygiene; mood is described as ok and affect irritable; eye contact appropriate; Speech is normal rate, volume and prosody and not pressured; intermittent psychomotor agitation present; thought process is organized and goal directed; Thought content is on paranoid ideations; denies any SI/HI. Intermittent AH; patient aware of some of them. Patients insight and judgment impaired Diagnostics Vital Signs (24Hr): Vital Signs - 24 hr 01/19/25 20:00 01/20/25 08:00 01/20/25 08:41 Temperature 96.8 F 97.2 F Pulse Rate 86 84 Respiratory Rate 18 16 Blood Pressure 106/59 L 126/74 116/66 Pulse Oximetry 95 97 Oxygen Delivery Method Room Air Nasal Cannula Oxygen Flow Rate 2 BMI result Body Mass Index 34.3 Labs 01/14/25 12:04 01/15/25 07:36 Labs: Laboratory Results - last 48 hr 01/19/25 01/20/25 06:03 06:33 POC Glucose 204 H 331 H Medications Medications Current Medications Acetaminophen (Acetaminophen 325 Mg Tablet) 650 mg PO Q6H PRN PRN Reason: Headache/Pain, Scale 1-10 Last Admin: 01/20/25 13:36 Dose: 650 mg Al Hydroxide/Mg Hydroxide (Magnesium Hydrox/Alum Hydrox 30 Ml Oral.Susp) 30 ml PO Q6H PRN PRN Reason: Heartburn/Nausea Albuterol Sulfate (Albuterol Sulfate 90 Mcg 8 Gm Inhaler) 1 puff INHALE Q2H PRN PRN Reason: Shortness Of Breath Or Wheezing Albuterol Sulfate (Albuterol Sulfate (0.083%) 2.5 Mg/3 Ml Vial.Neb) 2.5 mg INHALE Q2H PRN PRN Reason: Shortness Of Breath Or Wheezing Buprenorphine/Naloxone (Buprenorphine/Naloxone 8/2 Mg Film) 1 film SUBLINGUAL TID [facility] Last Admin: 01/20/25 15:04 Dose: 1 film Clonidine HCl (Clonidine Hcl 0.2 Mg Tablet) 0.2 mg PO BID [facility] Last Admin: 01/20/25 08:41 Dose: 0.2 mg Dextrose (Dextrose 50 % 25 Gm/50 Ml Syringe) 25 gm IVPUSH Q15M PRN; Protocol PRN Reason: per Hypoglycemia Standing Ord. Divalproex Sodium (Divalproex Sodium 500 Mg Tablet.) 1,000 mg PO BID [facility] Last Admin: 01/20/25 08:41 Dose: 1,000 mg Doxepin HCl (Doxepin Hcl 25 Mg Capsule) 25 mg PO BEDTIME [facility] Last Admin: 01/19/25 22:52 Dose: 25 mg Finasteride (Finasteride 5 Mg Tablet) 5 mg PO DAILY [facility] Last Admin: 01/20/25 08:40 Dose: 5 mg Glucose (Glucose Gel 15 Gm Gel..Gram.) 15 gm PO Q15M PRN; Protocol PRN Reason: per Hypoglycemia Standing Ord. Lidocaine (Lidocaine 4 % Patch Adh..Patch) 2 patch TRANSDERMA DAILY [facility] Last Admin: 01/20/25 08:43 Dose: Not Given Magnesium Hydroxide (Milk Of Magnesia 30 Ml Oral.Susp) 30 ml PO DAILY PRN PRN Reason: Constipation Metformin HCl (Metformin Hcl Er 500 Mg Tab.Er.24h) 500 mg PO DAILY [facility] Last Admin: 01/20/25 08:41 Dose: 500 mg Nicotine Polacrilex (Nicotine Polacrilex 2 Mg Gum) 4 mg BUCCAL Q2H PRN PRN Reason: Nicotine Cravings Last Admin: 01/17/25 15:14 Dose: 4 mg Omeprazole (Omeprazole 20 Mg Capsule.) 20 mg PO BID [facility] Last Admin: 01/20/25 08:40 Dose: 20 mg Prednisone (Prednisone 20 Mg Tablet) 20 mg PO BID [facility] Last Admin: 01/20/25 08:41 Dose: 20 mg Pregabalin (Pregabalin 200 Mg Capsule) 200 mg PO BID [facility] Last Admin: 01/20/25 08:40 Dose: 200 mg Quetiapine Fumarate (Quetiapine Fumarate 100 Mg Tablet) 100 mg PO BEDTIME [facility] Last Admin: 01/19/25 22:52 Dose: 100 mg Risperidone (Risperidone 1 Mg Tablet) 1 mg PO BID [facility] Last Admin: 01/20/25 08:40 Dose: 1 mg Trazodone HCl (Trazodone Hcl 50 Mg Tablet) 50 mg PO BEDTIME MRX1 PRN PRN Reason: Insomnia Last Admin: 01/19/25 22:52 Dose: 50 mg Allergies Allergies Allergy/AdvReac Type Severity Reaction Status Date / Time hydrocodone Allergy Unknown Verified 01/14/25 02:11 Penicillins Allergy Unknown Verified 01/14/25 02:13 Assessment & Plan Assessment & Plan (1) Schizoaffective disorder, bipolar type: Status: Acute Code(s): F25.0 - Schizoaffective disorder, bipolar type Plan HPI: Patient is a 54-year-old male with history of bipolar disorder, PTSD, substance abuse in sustained remission, COPD on home O2 (05/05), non-IDDM, uses a walker who presents for worsening paranoid ideations following medical admission for mild COPD exacerbation. On the unit, patient very anxious about his belongings and demanded being able to watch staff examine them. Patient said he was at home at his sister's where he has been living for 4 months and had trouble breathing and so wanted to go to the hospital where he was treated for COPD exacerbation. While there patient expressed paranoid ideations. Patient reports he has been sober for 4 years and was living in a sober home until about 4 months ago when he moved into his sister's house. He says ever since then, his nephew, her son has been doing little things, subtle things to antagonize him. His sister denies this and will say her son is not even in the house however patient knows this is not true. He says this has been escalating over the past few weeks. This past week, he was at [employer] (he wants technical writer to know that the police brought him there so he could buy a cell phone) to by a cell phone and upon returned to his home, he was upstairs and said he heard his nephew say that he was going to steal the cell phone; he laments that again his sister insisted that her son (patient's nephew) was not in the house at all however patient is convinced that he was. Patient says while at the hospital, he knows that his sister got admitted there because he saw what he thought was the back of her ducking into a room and isn't fueled by hospital staff that said she was not there. Patient also believes that his sister is giving him extra medications in a box of medications some of which are not his and is upset that she does not bring the full box to him to prove it; he also thinks that she will discontinue some medications his doctor wants him to be on for some unknown reason. Patient is beside himself with grief because he loves his sister and can not understand why over these past 4 months she is turning against him and allowing her son to antagonize him. Patient acknowledges that he will intermittently have auditory hallucinations of hearing a word being said but when he turns to look there is no one there. Formulation/clinical reasoning: Reported History of bipolar disorder however given paranoid delusions will change diagnosis to what seems more likely to be schizoaffective disorder. Not sure what has caused exacerbation of symptoms which seemed to have been brewing for the past several months; patient is amenable to medication changes -Regarding Lovenox, patient was admitted with this remaining on his medication list. However this is unusual for someone to be prescribed on Lovenox as an outpatient; technical writer reviewed history of pharmacy prescriptions and there is no evidence Lovenox is ever been prescribed; patient also denies to technical writer any history at all of blood clots. Seems much more likely that Lovenox was just used while patient was medically admitted for COPD exacerbation; technical writer reviewed with hospitalist ADILSON who agrees. For now will discontinue Hospital course: 4/5 Patient continues to have paranoid ideations and thought someone threw something at his head or that people were laughing at him on the unit.? He agrees to starting risperidone and technical writer reviewed risks/side effects including galactorrhea; also discussed patient's hemoglobin A1c 6.9 and patient is snacking throughout the day; he says he used to be on metformin; says he has never been on insulin sliding scale and does not want to be on 1 now.? Soda Drier Feeder could not find history of prescription for this however this medication is warranted; technical writer reviewed risks and patient agrees -potassium returned to WNL -start Risperdal 0.5 mg b.i.d. -Start metformin XL 500 mg q.h.s. -will DC insulin sliding scale since patient does not want it and sugars remain below 300 01/16 Patient said he reached out to his sister and he is trying to repair the relationship. Still thinks that she is trying to full him but wants to reconcile; some small, temporary acknowledgement that perhaps he is misinterpreting. Patient asked about Adderall which he is on at home; technical writer said it is on hold now until this other issue can be resolved patient again discussed snacking and says he will leave his snacking to before bedtime and abstaining during the day -will hold off increasing Risperdal for now 01/17 increased risperidone 1mg po BID. 01/18 continue risperidone 1mg po BID 01/19 continue tx. 01/20 increase risperidone 1mg po daily and 2mg po qhs. Plan: CV 1:1 since 05/05 oxygen Continue home medications continue Risperdal 0.5 mg b.i.d. Started metformin XL 500 mg q.h.s. Discontinue insulin sliding scale: Patient does not want Discontinue Lovenox; does not seem to be any indication that patient is on this as an outpatient and was most likely just being used during his recent medical admission Gather collateral Hyperkalemia: resolved (received Lokelma 15 g p.o.) COPD Pt with expiratory wheezing upon auscultation, seems chronic given prior presentations to the ED Does not appear to be in acute exacerbation Pt is speaking in full sentences, breathing unlabored Continue home inhalers Continue portable O2, titrate to 2L for O2>90% Prediabetes POC has been as high as 221 A1c elevated at 6.9 Anticoagulation Med rec indicated pt on enoxaparin However indication is unclear: Most likely was an unnecessary carry over from prior inpatient hospitalization and was on Lovenox for DVT prophylaxis Review of medical records offers no other indication for anticoagulation Lovenox can be discontinued at this time HTN Continue furosemide HLD Continue statin GERD PPI Chronic pain Continue Lyrica Patient educated on: diagnosis, medication risk/benefits and medical condition Informed Consent: understands, does not understand and further e Reason for continued inpatient stay Substantial Risk for: inability to function Time Spent With Patient Time: Total time managing care of this patient today ____ minutes.
[2025-01-20 20:00] VITALS: BP 124/79; PULSE 84; TEMP 36.1; O2SAT 95
[2025-01-20 22:19] VITALS: BP 141/81
[2025-01-20] MEDS: Doxepin HCl 25 MG CAPSULE PO (22:21)
[2025-01-20] MEDS: risperiDONE 2 MG TABLET PO (22:22)
[2025-01-20] MEDS: QUEtiapine Fumarate 100 MG TABLET PO (22:22)
[2025-01-21 08:00] VITALS: BP 123/73; PULSE 72; RESP 18; TEMP 36.2; O2SAT 97
[2025-01-21 08:17] LABS: Glucose, Whole Blood 245 mg/dL (60-115)
[2025-01-21] MEDS: Buprenorphine/Naloxone 8/2 mg FILM 1 FILM SUBLINGUAL ×3 (08:29→20:15)
[2025-01-21 09:11] VITALS: BP 123/73
[2025-01-21] MEDS: Divalproex Sodium 500 MG TABLET.DR 1000 MG PO ×2 (09:11→21:58)
[2025-01-21] MEDS: Omeprazole 20 MG CAPSULE.DR PO ×2 (09:11→21:58)
[2025-01-21] MEDS: cloNIDine HCL 0.2 MG TABLET PO ×2 (09:11→21:58)
[2025-01-21] MEDS: Finasteride 5 MG TABLET PO (09:11)
[2025-01-21] MEDS: risperiDONE 1 MG TABLET PO (09:12)
[2025-01-21] MEDS: Pregabalin 200 MG CAPSULE PO ×2 (09:12→22:01)
[2025-01-21] MEDS: predniSONE 20 MG TABLET PO ×2 (09:12→21:58)
[2025-01-21] MEDS: metFORMIN HCl ER 500 MG TAB.ER.24H PO (09:12)
--- NOTE | 2025-01-21 10:47 | HO.PSYCHPN ---
Subjective Subjective Date of Service: 01/21/25 Reason For Visit: Anxiety Disorder Unspecified/Polysubstance Abuse Subjective Notes: Conditional Voluntary Interim History: Pt slept through the night. Pt upset because he does not like his roommate. He reports he sleeps better if he does not have a roommate. However, this service writer explained that may not be possible. He denies SI/HI. He is suspicious and guarded, but taking medications. He reports he may want to be discharged next week. Review of Systems Review of Systems Pt has no acute medical complaints at this time. Mental Status Exam Mental Status Exam Narrative: Pt is alert and oriented to place, month and year. His orientation to situation is vague and off as he reports he is here because he was sweating; behavior is suspicious but cooperative and friendly on approach; calm; patient is not in distress; dressed in casual attire, rings, bracelet, tattooed arms; unkempt hair but adequate hygiene; mood is described as ok and affect irritable; eye contact appropriate; Speech is normal rate, volume and prosody and not pressured; intermittent psychomotor agitation present; thought process is organized and goal directed; Thought content is on paranoid ideations; denies any SI/HI. Intermittent AH; patient aware of some of them. Patients insight and judgment impaired Diagnostics Vital Signs (24Hr): Vital Signs - 24 hr 01/20/25 20:00 01/20/25 22:19 01/21/25 08:00 Temperature 97 F 97.1 F Pulse Rate 84 72 Respiratory Rate 18 Blood Pressure 124/79 141/81 H 123/73 Pulse Oximetry 95 97 Oxygen Delivery Method Nasal Cannula Nasal Cannula Oxygen Flow Rate 2 2 01/21/25 09:11 Temperature Pulse Rate Respiratory Rate Blood Pressure 123/73 Pulse Oximetry Oxygen Delivery Method Oxygen Flow Rate BMI result Body Mass Index 34.9 Labs 01/14/25 12:04 01/15/25 07:36 Labs: Laboratory Results - last 48 hr 01/20/25 01/21/25 06:33 08:14 POC Glucose 331 H 245 H Medications Medications Current Medications Acetaminophen (Acetaminophen 325 Mg Tablet) 650 mg PO Q6H PRN PRN Reason: Headache/Pain, Scale 1-10 Last Admin: 01/20/25 13:36 Dose: 650 mg Al Hydroxide/Mg Hydroxide (Magnesium Hydrox/Alum Hydrox 30 Ml Oral.Susp) 30 ml PO Q6H PRN PRN Reason: Heartburn/Nausea Albuterol Sulfate (Albuterol Sulfate 90 Mcg 8 Gm Inhaler) 1 puff INHALE Q2H PRN PRN Reason: Shortness Of Breath Or Wheezing Albuterol Sulfate (Albuterol Sulfate (0.083%) 2.5 Mg/3 Ml Vial.Neb) 2.5 mg INHALE Q2H PRN PRN Reason: Shortness Of Breath Or Wheezing Buprenorphine/Naloxone (Buprenorphine/Naloxone 8/2 Mg Film) 1 film SUBLINGUAL TID [facility] Last Admin: 01/21/25 08:29 Dose: 1 film Clonidine HCl (Clonidine Hcl 0.2 Mg Tablet) 0.2 mg PO BID [facility] Last Admin: 01/21/25 09:11 Dose: 0.2 mg Dextrose (Dextrose 50 % 25 Gm/50 Ml Syringe) 25 gm IVPUSH Q15M PRN; Protocol PRN Reason: per Hypoglycemia Standing Ord. Divalproex Sodium (Divalproex Sodium 500 Mg Tablet.) 1,000 mg PO BID [facility] Last Admin: 01/21/25 09:11 Dose: 1,000 mg Doxepin HCl (Doxepin Hcl 25 Mg Capsule) 25 mg PO BEDTIME [facility] Last Admin: 01/20/25 22:21 Dose: 25 mg Finasteride (Finasteride 5 Mg Tablet) 5 mg PO DAILY [facility] Last Admin: 01/21/25 09:11 Dose: 5 mg Glucose (Glucose Gel 15 Gm Gel..Gram.) 15 gm PO Q15M PRN; Protocol PRN Reason: per Hypoglycemia Standing Ord. Lidocaine (Lidocaine 4 % Patch Adh..Patch) 2 patch TRANSDERMA DAILY [facility] Last Admin: 01/21/25 09:15 Dose: Not Given Magnesium Hydroxide (Milk Of Magnesia 30 Ml Oral.Susp) 30 ml PO DAILY PRN PRN Reason: Constipation Metformin HCl (Metformin Hcl Er 500 Mg Tab.Er.24h) 500 mg PO DAILY [facility] Last Admin: 01/21/25 09:12 Dose: 500 mg Nicotine Polacrilex (Nicotine Polacrilex 2 Mg Gum) 4 mg BUCCAL Q2H PRN PRN Reason: Nicotine Cravings Last Admin: 01/17/25 15:14 Dose: 4 mg Omeprazole (Omeprazole 20 Mg Capsule.) 20 mg PO BID [facility] Last Admin: 01/21/25 09:11 Dose: 20 mg Prednisone (Prednisone 20 Mg Tablet) 20 mg PO BID [facility] Last Admin: 01/21/25 09:12 Dose: 20 mg Pregabalin (Pregabalin 200 Mg Capsule) 200 mg PO BID [facility] Last Admin: 01/21/25 09:12 Dose: 200 mg Quetiapine Fumarate (Quetiapine Fumarate 100 Mg Tablet) 100 mg PO BEDTIME [facility] Last Admin: 01/20/25 22:22 Dose: 100 mg Risperidone (Risperidone 1 Mg Tablet) 1 mg PO DAILY [facility] Last Admin: 01/21/25 09:12 Dose: 1 mg Risperidone (Risperidone 2 Mg Tablet) 2 mg PO BEDTIME [facility] Last Admin: 01/20/25 22:22 Dose: 2 mg Trazodone HCl (Trazodone Hcl 50 Mg Tablet) 50 mg PO BEDTIME MRX1 PRN PRN Reason: Insomnia Last Admin: 01/19/25 22:52 Dose: 50 mg Allergies Allergies Allergy/AdvReac Type Severity Reaction Status Date / Time hydrocodone Allergy Unknown Verified 01/14/25 02:11 Penicillins Allergy Unknown Verified 01/14/25 02:13 Assessment & Plan Assessment & Plan (1) Schizoaffective disorder, bipolar type: Status: Acute Code(s): F25.0 - Schizoaffective disorder, bipolar type Plan HPI: Patient is a 54-year-old male with history of bipolar disorder, PTSD, substance abuse in sustained remission, COPD on home O2 (05/05), non-IDDM, uses a walker who presents for worsening paranoid ideations following medical admission for mild COPD exacerbation. On the unit, patient very anxious about his belongings and demanded being able to watch staff examine them. Patient said he was at home at his sister's where he has been living for 4 months and had trouble breathing and so wanted to go to the hospital where he was treated for COPD exacerbation. While there patient expressed paranoid ideations. Patient reports he has been sober for 4 years and was living in a sober home until about 4 months ago when he moved into his sister's house. He says ever since then, his nephew, her son has been doing little things, subtle things to antagonize him. His sister denies this and will say her son is not even in the house however patient knows this is not true. He says this has been escalating over the past few weeks. This past week, he was at [employer] (he wants service writer to know that the police brought him there so he could buy a cell phone) to by a cell phone and upon returned to his home, he was upstairs and said he heard his nephew say that he was going to steal the cell phone; he laments that again his sister insisted that her son (patient's nephew) was not in the house at all however patient is convinced that he was. Patient says while at the hospital, he knows that his sister got admitted there because he saw what he thought was the back of her ducking into a room and isn't fueled by hospital staff that said she was not there. Patient also believes that his sister is giving him extra medications in a box of medications some of which are not his and is upset that she does not bring the full box to him to prove it; he also thinks that she will discontinue some medications his doctor wants him to be on for some unknown reason. Patient is beside himself with grief because he loves his sister and can not understand why over these past 4 months she is turning against him and allowing her son to antagonize him. Patient acknowledges that he will intermittently have auditory hallucinations of hearing a word being said but when he turns to look there is no one there. Formulation/clinical reasoning: Reported History of bipolar disorder however given paranoid delusions will change diagnosis to what seems more likely to be schizoaffective disorder. Not sure what has caused exacerbation of symptoms which seemed to have been brewing for the past several months; patient is amenable to medication changes -Regarding Lovenox, patient was admitted with this remaining on his medication list. However this is unusual for someone to be prescribed on Lovenox as an outpatient; service writer reviewed history of pharmacy prescriptions and there is no evidence Lovenox is ever been prescribed; patient also denies to service writer any history at all of blood clots. Seems much more likely that Lovenox was just used while patient was medically admitted for COPD exacerbation; service writer reviewed with hospitalist ADILSON who agrees. For now will discontinue Hospital course: 4/5 Patient continues to have paranoid ideations and thought someone threw something at his head or that people were laughing at him on the unit.? He agrees to starting risperidone and service writer reviewed risks/side effects including galactorrhea; also discussed patient's hemoglobin A1c 6.9 and patient is snacking throughout the day; he says he used to be on metformin; says he has never been on insulin sliding scale and does not want to be on 1 now.? Cigarette Seller could not find history of prescription for this however this medication is warranted; service writer reviewed risks and patient agrees -potassium returned to WNL -start Risperdal 0.5 mg b.i.d. -Start metformin XL 500 mg q.h.s. -will DC insulin sliding scale since patient does not want it and sugars remain below 300 01/16 Patient said he reached out to his sister and he is trying to repair the relationship. Still thinks that she is trying to full him but wants to reconcile; some small, temporary acknowledgement that perhaps he is misinterpreting. Patient asked about Adderall which he is on at home; service writer said it is on hold now until this other issue can be resolved patient again discussed snacking and says he will leave his snacking to before bedtime and abstaining during the day -will hold off increasing Risperdal for now 01/17 increased risperidone 1mg po BID. 01/18 continue risperidone 1mg po BID 01/19 continue tx. 01/20 increase risperidone 1mg po daily and 2mg po qhs. 01/21 continue tx. Plan: CV 1:1 since 05/05 oxygen Continue home medications continue Risperdal 0.5 mg b.i.d. Started metformin XL 500 mg q.h.s. Discontinue insulin sliding scale: Patient does not want Discontinue Lovenox; does not seem to be any indication that patient is on this as an outpatient and was most likely just being used during his recent medical admission Gather collateral Hyperkalemia: resolved (received Lokelma 15 g p.o.) COPD Pt with expiratory wheezing upon auscultation, seems chronic given prior presentations to the ED Does not appear to be in acute exacerbation Pt is speaking in full sentences, breathing unlabored Continue home inhalers Continue portable O2, titrate to 2L for O2>90% Prediabetes POC has been as high as 221 A1c elevated at 6.9 Anticoagulation Med rec indicated pt on enoxaparin However indication is unclear: Most likely was an unnecessary carry over from prior inpatient hospitalization and was on Lovenox for DVT prophylaxis Review of medical records offers no other indication for anticoagulation Lovenox can be discontinued at this time HTN Continue furosemide HLD Continue statin GERD PPI Chronic pain Continue Lyrica Patient educated on: diagnosis, medication risk/benefits and medical condition Informed Consent: understands, does not understand and further e Reason for continued inpatient stay Substantial Risk for: inability to function Time Spent With Patient Time: Total time managing care of this patient today ____ minutes.
[2025-01-21] MEDS: Acetaminophen 325 MG TABLET 650 MG PO (16:29)
[2025-01-21 20:00] VITALS: BP 138/73; PULSE 78; RESP 16; TEMP 36.1; O2SAT 96
[2025-01-21 21:58] VITALS: BP 134/73
[2025-01-21] MEDS: Doxepin HCl 25 MG CAPSULE PO (21:58)
[2025-01-21] MEDS: risperiDONE 2 MG TABLET PO (21:58)
[2025-01-21] MEDS: QUEtiapine Fumarate 100 MG TABLET PO (21:58)
[2025-01-22 06:48] LABS: Glucose, Whole Blood 246 mg/dL (60-115)
[2025-01-22 07:53] LABS: Creatinine Clr Calc Pharmacy 115.3; Estimated Glomerular Filt Rate > 60
[2025-01-22 07:55] VITALS: BP 132/76; PULSE 74; RESP 18; TEMP 36.8; O2SAT 97
[2025-01-22] MEDS: Buprenorphine/Naloxone 8/2 mg FILM 1 FILM SUBLINGUAL ×3 (08:42→20:11)
[2025-01-22] MEDS: Pregabalin 200 MG CAPSULE PO ×2 (08:43→20:59)
[2025-01-22] MEDS: Divalproex Sodium 500 MG TABLET.DR 1000 MG PO ×2 (08:43→21:00)
[2025-01-22] MEDS: metFORMIN HCl ER 500 MG TAB.ER.24H PO (08:43)
[2025-01-22] MEDS: risperiDONE 1 MG TABLET PO (08:43)
[2025-01-22] MEDS: cloNIDine HCL 0.2 MG TABLET PO ×2 (08:43→20:59)
[2025-01-22] MEDS: Omeprazole 20 MG CAPSULE.DR PO ×2 (08:43→21:00)
[2025-01-22] MEDS: predniSONE 20 MG TABLET PO ×2 (08:43→21:00)
[2025-01-22] MEDS: Finasteride 5 MG TABLET PO (08:45)
[2025-01-22] MEDS: Acetaminophen 325 MG TABLET 650 MG PO (11:52)
--- NOTE | 2025-01-22 16:14 | P.PNPSI_ITS ---
Subjective Subjective Date of Service: 01/22/25 Reason For Visit: Anxiety Disorder Unspecified/Polysubstance Abuse Interim History: irritable. says he's hungry. denies having DM. concerned his roommate is taking his things. per staff, DM out of control, eating a lot. sleeping well. Mental Status Exam Mental Status Exam Narrative: behavior is suspicious but cooperative and friendly on approach; calm; patient is not in distress; dressed in casual attire, rings, bracelet, tattooed arms; unkempt hair but adequate hygiene; mood is described as ok and affect irritable; eye contact appropriate; Speech is normal rate, volume and prosody and not pressured; intermittent psychomotor agitation present; thought process is organized and goal directed; Thought content is on paranoid ideations; denies any SI/HI. Intermittent AH; patient aware of some of them. Patients insight and judgment impaired Diagnostics Vital Signs (24Hr): Vital Signs - 24 hr 01/21/25 20:00 01/21/25 21:58 01/22/25 07:55 Temperature 97 F 98.2 F Pulse Rate 78 74 Respiratory Rate 16 18 Blood Pressure 138/73 134/73 132/76 Pulse Oximetry 96 97 Oxygen Delivery Method Room Air Nasal Cannula Oxygen Flow Rate 2 BMI result Body Mass Index 34.9 Labs 01/14/25 12:04 01/22/25 07:18 Labs: Laboratory Results - last 48 hr 01/21/25 01/22/25 01/22/25 08:14 06:36 07:18 Creatinine 0.81 Estim Creat Clear Calc 115.3 Estimated GFR > 60 POC Glucose 245 H 246 H Medications Medications Current Medications Acetaminophen (Acetaminophen 325 Mg Tablet) 650 mg PO Q6H PRN PRN Reason: Headache/Pain, Scale 1-10 Last Admin: 01/22/25 11:52 Dose: 650 mg Al Hydroxide/Mg Hydroxide (Magnesium Hydrox/Alum Hydrox 30 Ml Oral.Susp) 30 ml PO Q6H PRN PRN Reason: Heartburn/Nausea Albuterol Sulfate (Albuterol Sulfate 90 Mcg 8 Gm Inhaler) 1 puff INHALE Q2H PRN PRN Reason: Shortness Of Breath Or Wheezing Albuterol Sulfate (Albuterol Sulfate (0.083%) 2.5 Mg/3 Ml Vial.Neb) 2.5 mg INHALE Q2H PRN PRN Reason: Shortness Of Breath Or Wheezing Buprenorphine/Naloxone (Buprenorphine/Naloxone 8/2 Mg Film) 1 film SUBLINGUAL TID [facility] Last Admin: 01/22/25 14:38 Dose: 1 film Clonidine HCl (Clonidine Hcl 0.2 Mg Tablet) 0.2 mg PO BID [facility] Last Admin: 01/22/25 08:43 Dose: 0.2 mg Dextrose (Dextrose 50 % 25 Gm/50 Ml Syringe) 25 gm IVPUSH Q15M PRN; Protocol PRN Reason: per Hypoglycemia Standing Ord. Divalproex Sodium (Divalproex Sodium 500 Mg Tablet.) 1,000 mg PO BID [facility] Last Admin: 01/22/25 08:43 Dose: 1,000 mg Doxepin HCl (Doxepin Hcl 25 Mg Capsule) 25 mg PO BEDTIME [facility] Last Admin: 01/21/25 21:58 Dose: 25 mg Finasteride (Finasteride 5 Mg Tablet) 5 mg PO DAILY [facility] Last Admin: 01/22/25 08:45 Dose: 5 mg Glucose (Glucose Gel 15 Gm Gel..Gram.) 15 gm PO Q15M PRN; Protocol PRN Reason: per Hypoglycemia Standing Ord. Lidocaine (Lidocaine 4 % Patch Adh..Patch) 2 patch TRANSDERMA DAILY [facility] Last Admin: 01/22/25 08:45 Dose: Not Given Magnesium Hydroxide (Milk Of Magnesia 30 Ml Oral.Susp) 30 ml PO DAILY PRN PRN Reason: Constipation Metformin HCl (Metformin Hcl Er 500 Mg Tab.Er.24h) 500 mg PO DAILY [facility] Last Admin: 01/22/25 08:43 Dose: 500 mg Nicotine Polacrilex (Nicotine Polacrilex 2 Mg Gum) 4 mg BUCCAL Q2H PRN PRN Reason: Nicotine Cravings Last Admin: 01/17/25 15:14 Dose: 4 mg Omeprazole (Omeprazole 20 Mg Capsule.) 20 mg PO BID [facility] Last Admin: 01/22/25 08:43 Dose: 20 mg Prednisone (Prednisone 20 Mg Tablet) 20 mg PO BID [facility] Last Admin: 01/22/25 08:43 Dose: 20 mg Pregabalin (Pregabalin 200 Mg Capsule) 200 mg PO BID [facility] Last Admin: 01/22/25 08:43 Dose: 200 mg Quetiapine Fumarate (Quetiapine Fumarate 100 Mg Tablet) 100 mg PO BEDTIME [facility] Last Admin: 01/21/25 21:58 Dose: 100 mg Risperidone (Risperidone 1 Mg Tablet) 1 mg PO DAILY [facility] Last Admin: 01/22/25 08:43 Dose: 1 mg Risperidone (Risperidone 2 Mg Tablet) 2 mg PO BEDTIME [facility] Last Admin: 01/21/25 21:58 Dose: 2 mg Trazodone HCl (Trazodone Hcl 50 Mg Tablet) 50 mg PO BEDTIME MRX1 PRN PRN Reason: Insomnia Last Admin: 01/19/25 22:52 Dose: 50 mg Allergies Allergies Allergy/AdvReac Type Severity Reaction Status Date / Time hydrocodone Allergy Unknown Verified 01/14/25 02:11 Penicillins Allergy Unknown Verified 01/14/25 02:13 Assessment & Plan Assessment & Plan (1) Schizoaffective disorder, bipolar type: Status: Acute Code(s): F25.0 - Schizoaffective disorder, bipolar type Plan HPI: Patient is a 54-year-old male with history of bipolar disorder, PTSD, substance abuse in sustained remission, COPD on home O2 (05/05), non-IDDM, uses a walker who presents for worsening paranoid ideations following medical admission for mild COPD exacerbation. On the unit, patient very anxious about his belongings and demanded being able to watch staff examine them. Patient said he was at home at his sister's where he has been living for 4 months and had trouble breathing and so wanted to go to the hospital where he was treated for COPD exacerbation. While there patient expressed paranoid ideations. Patient reports he has been sober for 4 years and was living in a sober home until about 4 months ago when he moved into his sister's house. He says ever since then, his nephew, her son has been doing little things, subtle things to antagonize him. His sister denies this and will say her son is not even in the house however patient knows this is not true. He says this has been escalating over the past few weeks. This past week, he was at [employer] (he wants curriculum writer to know that the police brought him there so he could buy a cell phone) to by a cell phone and upon returned to his home, he was upstairs and said he heard his nephew say that he was going to steal the cell phone; he laments that again his sister insisted that her son (patient's nephew) was not in the house at all however patient is convinced that he was. Patient says while at the hospital, he knows that his sister got admitted there because he saw what he thought was the back of her ducking into a room and isn't fueled by hospital staff that said she was not there. Patient also believes that his sister is giving him extra medications in a box of medications some of which are not his and is upset that she does not bring the full box to him to prove it; he also thinks that she will discontinue some medications his doctor wants him to be on for some unknown reason. Patient is beside himself with grief because he loves his sister and can not understand why over these past 4 months she is turning against him and allowing her son to antagonize him. Patient acknowledges that he will intermittently have auditory hallucinations of hearing a word being said but when he turns to look there is no one there. Formulation/clinical reasoning: Reported History of bipolar disorder however given paranoid delusions will change diagnosis to what seems more likely to be schizoaffective disorder. Not sure what has caused exacerbation of symptoms which seemed to have been brewing for the past several months; patient is amenable to medication changes -Regarding Lovenox, patient was admitted with this remaining on his medication list. However this is unusual for someone to be prescribed on Lovenox as an outpatient; curriculum writer reviewed history of pharmacy prescriptions and there is no evidence Lovenox is ever been prescribed; patient also denies to curriculum writer any history at all of blood clots. Seems much more likely that Lovenox was just used while patient was medically admitted for COPD exacerbation; curriculum writer reviewed with hospitalist ADILSON who agrees. For now will discontinue Hospital course: 4/5 Patient continues to have paranoid ideations and thought someone threw something at his head or that people were laughing at him on the unit.? He agrees to starting risperidone and curriculum writer reviewed risks/side effects including galactorrhea; also discussed patient's hemoglobin A1c 6.9 and patient is snacking throughout the day; he says he used to be on metformin; says he has never been on insulin sliding scale and does not want to be on 1 now.? [facility] [employer] could not find history of prescription for this however this medication is warranted; curriculum writer reviewed risks and patient agrees -potassium returned to WNL -start Risperdal 0.5 mg b.i.d. -Start metformin XL 500 mg q.h.s. -will DC insulin sliding scale since patient does not want it and sugars remain below 300 01/16 Patient said he reached out to his sister and he is trying to repair the relationship. Still thinks that she is trying to full him but wants to reconcile; some small, temporary acknowledgement that perhaps he is misinterpreting. Patient asked about Adderall which he is on at home; curriculum writer said it is on hold now until this other issue can be resolved patient again discussed snacking and says he will leave his snacking to before bedtime and abstaining during the day -will hold off increasing Risperdal for now 01/17 increased risperidone 1mg po BID. 01/18 continue risperidone 1mg po BID 01/19 continue tx. 01/20 increase risperidone 1mg po daily and 2mg po qhs. 01/21 continue tx. 01/22: irritable, denies having DM. hungry. continue current mgmt. Plan: CV 1:1 since 05/05 oxygen Continue home medications continue Risperdal 0.5 mg b.i.d. Started metformin XL 500 mg q.h.s. Discontinue insulin sliding scale: Patient does not want Discontinue Lovenox; does not seem to be any indication that patient is on this as an outpatient and was most likely just being used during his recent medical admission Gather collateral Hyperkalemia: resolved (received Lokelma 15 g p.o.) COPD Pt with expiratory wheezing upon auscultation, seems chronic given prior presentations to the ED Does not appear to be in acute exacerbation Pt is speaking in full sentences, breathing unlabored Continue home inhalers Continue portable O2, titrate to 2L for O2>90% Prediabetes POC has been as high as 221 A1c elevated at 6.9 Anticoagulation Med rec indicated pt on enoxaparin However indication is unclear: Most likely was an unnecessary carry over from prior inpatient hospitalization and was on Lovenox for DVT prophylaxis Review of medical records offers no other indication for anticoagulation Lovenox can be discontinued at this time HTN Continue furosemide HLD Continue statin GERD PPI Chronic pain Continue Lyrica Patient educated on: diagnosis, medication risk/benefits and medical condition Informed Consent: understands, does not understand and further e Reason for continued inpatient stay Substantial Risk for: inability to function Time Spent With Patient Time: Total time managing care of this patient today ____ minutes.
[2025-01-22 20:59] VITALS: BP 171/81
[2025-01-22] MEDS: QUEtiapine Fumarate 100 MG TABLET PO (21:00)
[2025-01-22] MEDS: Doxepin HCl 25 MG CAPSULE PO (21:00)
[2025-01-22] MEDS: risperiDONE 2 MG TABLET PO (21:00)
[2025-01-23 06:49] LABS: Glucose, Whole Blood 423 mg/dL (60-115)
[2025-01-23 07:55] VITALS: BP 137/77; PULSE 79; RESP 18; TEMP 36.8; O2SAT 96
[2025-01-23] MEDS: Buprenorphine/Naloxone 8/2 mg FILM 1 FILM SUBLINGUAL ×3 (08:13→20:47)
[2025-01-23] MEDS: predniSONE 20 MG TABLET PO ×2 (08:14→20:48)
[2025-01-23] MEDS: cloNIDine HCL 0.2 MG TABLET PO ×2 (08:14→20:50)
[2025-01-23] MEDS: Omeprazole 20 MG CAPSULE.DR PO ×2 (08:14→20:49)
[2025-01-23] MEDS: metFORMIN HCl ER 500 MG TAB.ER.24H PO (08:14)
[2025-01-23] MEDS: Divalproex Sodium 500 MG TABLET.DR 1000 MG PO ×2 (08:14→20:48)
[2025-01-23] MEDS: Pregabalin 200 MG CAPSULE PO ×2 (08:14→20:50)
[2025-01-23] MEDS: Finasteride 5 MG TABLET PO (08:14)
[2025-01-23] MEDS: risperiDONE 1 MG TABLET PO (08:15)
--- NOTE | 2025-01-23 11:03 | PM.EVENT ---
Event Note Date of Service: 01/23/25 Event Note: Consult placed for diabetes management. Glucose levels high 200-nearly 500 this morning. Add lantus 10 units daily and ssi per protocol. Increase metformin ER to 1000mg bid. POC glucose QIDACHS... Hgb A1x on arrival controlled at 6.9%. Glucose levels at home controlled Encourage diabetic diet Time Spent With Patient Time: Total time managing care of this patient today ____ minutes.
[2025-01-23 11:16] LABS: Glucose, Whole Blood 240 mg/dL (60-115)
[2025-01-23] MEDS: Insulin Glargine,Hum.rec.anlog 100 UNIT/ML 10 ML VIAL 10 UNIT SUBCUT (11:20)
[2025-01-23] MEDS: Insulin Lispro 100 UNIT/ML 3 ML VIAL SUBCUT ×3 (11:20→20:46)
[2025-01-23] MEDS: Acetaminophen 325 MG TABLET 650 MG PO (15:36)
[2025-01-23 16:13] LABS: Glucose, Whole Blood 232 mg/dL (60-115)
[2025-01-23 20:00] VITALS: BP 128/70; PULSE 73; RESP 17; TEMP 36.4; O2SAT 98
--- NOTE | 2025-01-23 20:10 | P.PNPSI_ITS ---
Subjective Subjective Date of Service: 01/23/25 Reason For Visit: Anxiety Disorder Unspecified/Polysubstance Abuse Interim History: complaining his roommate is up all night manipulating his things. asking to return to room with agustin. seems open to the idea that his glucose is too high and he needs insulin. per staff, eating very very much. FSBS elevated. Mental Status Exam Mental Status Exam Narrative: behavior is suspicious but cooperative and friendly on approach; calm; patient is not in distress; dressed in casual attire, rings, bracelet, tattooed arms; unkempt hair but adequate hygiene; mood is described as ok and affect irritable; eye contact appropriate; Speech is normal rate, volume and prosody and not pressured; intermittent psychomotor agitation present; thought process is organized and goal directed; Thought content is on paranoid ideations; denies any SI/HI. Intermittent AH; patient aware of some of them. Patients insight and judgment impaired Diagnostics Vital Signs (24Hr): Vital Signs - 24 hr 01/22/25 20:59 01/23/25 07:55 Temperature 98.2 F Pulse Rate 79 Respiratory Rate 18 Blood Pressure 171/81 H 137/77 Pulse Oximetry 96 Oxygen Delivery Method Nasal Cannula Oxygen Flow Rate 2 BMI result Body Mass Index 34.9 Labs 01/14/25 12:04 01/22/25 07:18 Labs: Laboratory Results - last 48 hr 01/22/25 01/22/25 01/23/25 06:36 07:18 05:48 Creatinine 0.81 Estim Creat Clear Calc 115.3 Estimated GFR > 60 POC Glucose 246 H 423 H* 01/23/25 01/23/25 11:13 16:09 Creatinine Estim Creat Clear Calc Estimated GFR POC Glucose 240 H 232 H Medications Medications Current Medications Acetaminophen (Acetaminophen 325 Mg Tablet) 650 mg PO Q6H PRN PRN Reason: Headache/Pain, Scale 1-10 Last Admin: 01/23/25 15:36 Dose: 650 mg Al Hydroxide/Mg Hydroxide (Magnesium Hydrox/Alum Hydrox 30 Ml Oral.Susp) 30 ml PO Q6H PRN PRN Reason: Heartburn/Nausea Albuterol Sulfate (Albuterol Sulfate 90 Mcg 8 Gm Inhaler) 1 puff INHALE Q2H PRN PRN Reason: Shortness Of Breath Or Wheezing Albuterol Sulfate (Albuterol Sulfate (0.083%) 2.5 Mg/3 Ml Vial.Neb) 2.5 mg INHALE Q2H PRN PRN Reason: Shortness Of Breath Or Wheezing Buprenorphine/Naloxone (Buprenorphine/Naloxone 8/2 Mg Film) 1 film SUBLINGUAL TID [facility] Last Admin: 01/23/25 14:57 Dose: 1 film Clonidine HCl (Clonidine Hcl 0.2 Mg Tablet) 0.2 mg PO BID [facility] Last Admin: 01/23/25 08:14 Dose: 0.2 mg Dextrose (Dextrose 50 % 25 Gm/50 Ml Syringe) 25 gm IVPUSH Q15M PRN; Protocol PRN Reason: per Hypoglycemia Standing Ord. Divalproex Sodium (Divalproex Sodium 500 Mg Tablet.Dr) 1,000 mg PO BID [facility] Last Admin: 01/23/25 08:14 Dose: 1,000 mg Doxepin HCl (Doxepin Hcl 25 Mg Capsule) 25 mg PO BEDTIME [facility] Last Admin: 01/22/25 21:00 Dose: 25 mg Finasteride (Finasteride 5 Mg Tablet) 5 mg PO DAILY [facility] Last Admin: 01/23/25 08:14 Dose: 5 mg Glucose (Glucose Gel 15 Gm Gel..Gram.) 15 gm PO Q15M PRN; Protocol PRN Reason: per Hypoglycemia Standing Ord. Glucose (Glucose Gel 15 Gm Gel..Gram.) 15 gm PO Q15M PRN; Protocol PRN Reason: per Hypoglycemia Standing Ord. Insulin Glargine (Insulin Glargine,Hum.Rec.Anlog 100 Unit/Ml 10 Ml Vial) 10 unit SUBCUT DAILY [facility] Last Admin: 01/23/25 11:20 Dose: 10 unit Insulin Human Lispro (Insulin Lispro 100 Unit/Ml 3 Ml Vial) 0 unit SUBCUT QIDACHS [facility]; Protocol Last Admin: 01/23/25 16:32 Dose: 4 unit Lidocaine (Lidocaine 4 % Patch Adh..Patch) 2 patch TRANSDERMA DAILY [facility] Last Admin: 01/23/25 08:15 Dose: Not Given Magnesium Hydroxide (Milk Of Magnesia 30 Ml Oral.Susp) 30 ml PO DAILY PRN PRN Reason: Constipation Metformin HCl (Metformin Hcl Er 500 Mg Tab.Er.24h) 1,000 mg PO BID [facility] Nicotine Polacrilex (Nicotine Polacrilex 2 Mg Gum) 4 mg BUCCAL Q2H PRN PRN Reason: Nicotine Cravings Last Admin: 01/17/25 15:14 Dose: 4 mg Omeprazole (Omeprazole 20 Mg Capsule.) 20 mg PO BID [facility] Last Admin: 01/23/25 08:14 Dose: 20 mg Prednisone (Prednisone 20 Mg Tablet) 20 mg PO BID [facility] Last Admin: 01/23/25 08:14 Dose: 20 mg Pregabalin (Pregabalin 200 Mg Capsule) 200 mg PO BID [facility] Last Admin: 01/23/25 08:14 Dose: 200 mg Quetiapine Fumarate (Quetiapine Fumarate 100 Mg Tablet) 100 mg PO BEDTIME [facility] Last Admin: 01/22/25 21:00 Dose: 100 mg Risperidone (Risperidone 1 Mg Tablet) 1 mg PO DAILY [facility] Last Admin: 01/23/25 08:15 Dose: 1 mg Risperidone (Risperidone 2 Mg Tablet) 2 mg PO BEDTIME [facility] Last Admin: 01/22/25 21:00 Dose: 2 mg Trazodone HCl (Trazodone Hcl 50 Mg Tablet) 50 mg PO BEDTIME MRX1 PRN PRN Reason: Insomnia Last Admin: 01/19/25 22:52 Dose: 50 mg Allergies Allergies Allergy/AdvReac Type Severity Reaction Status Date / Time hydrocodone Allergy Unknown Verified 01/14/25 02:11 Penicillins Allergy Unknown Verified 01/14/25 02:13 Assessment & Plan Assessment & Plan (1) Schizoaffective disorder, bipolar type: Status: Acute Code(s): F25.0 - Schizoaffective disorder, bipolar type Plan HPI: Patient is a 54-year-old male with history of bipolar disorder, PTSD, substance abuse in sustained remission, COPD on home O2 (05/05), non-IDDM, uses a walker who presents for worsening paranoid ideations following medical admission for mild COPD exacerbation. On the unit, patient very anxious about his belongings and demanded being able to watch staff examine them. Patient said he was at home at his sister's where he has been living for 4 months and had trouble breathing and so wanted to go to the hospital where he was treated for COPD exacerbation. While there patient expressed paranoid ideations. Patient reports he has been sober for 4 years and was living in a sober home until about 4 months ago when he moved into his sister's house. He says ever since then, his nephew, her son has been doing little things, subtle things to antagonize him. His sister denies this and will say her son is not even in the house however patient knows this is not true. He says this has been escalating over the past few weeks. This past week, he was at [employer] (he wants casualty underwriter to know that the police brought him there so he could buy a cell phone) to by a cell phone and upon returned to his home, he was upstairs and said he heard his nephew say that he was going to steal the cell phone; he laments that again his sister insisted that her son (patient's nephew) was not in the house at all however patient is convinced that he was. Patient says while at the hospital, he knows that his sister got admitted there because he saw what he thought was the back of her ducking into a room and isn't fueled by hospital staff that said she was not there. Patient also believes that his sister is giving him extra medications in a box of medications some of which are not his and is upset that she does not bring the full box to him to prove it; he also thinks that she will discontinue some medications his doctor wants him to be on for some unknown reason. Patient is beside himself with grief because he loves his sister and can not understand why over these past 4 months she is turning against him and allowing her son to antagonize him. Patient acknowledges that he will intermittently have auditory hallucinations of hearing a word being said but when he turns to look there is no one there. Formulation/clinical reasoning: Reported History of bipolar disorder however given paranoid delusions will change diagnosis to what seems more likely to be schizoaffective disorder. Not sure what has caused exacerbation of symptoms which seemed to have been brewing for the past several months; patient is amenable to medication changes -Regarding Lovenox, patient was admitted with this remaining on his medication list. However this is unusual for someone to be prescribed on Lovenox as an outpatient; casualty underwriter reviewed history of pharmacy prescriptions and there is no evidence Lovenox is ever been prescribed; patient also denies to casualty underwriter any history at all of blood clots. Seems much more likely that Lovenox was just used while patient was medically admitted for COPD exacerbation; casualty underwriter reviewed with hospitalist ADILSON who agrees. For now will discontinue Hospital course: 01/15 Patient continues to have paranoid ideations and thought someone threw something at his head or that people were laughing at him on the unit.? He agrees to starting risperidone and casualty underwriter reviewed risks/side effects including galactorrhea; also discussed patient's hemoglobin A1c 6.9 and patient is snacking throughout the day; he says he used to be on metformin; says he has never been on insulin sliding scale and does not want to be on 1 now.? [employer] could not find history of prescription for this however this medication is warranted; casualty underwriter reviewed risks and patient agrees -potassium returned to WNL -start Risperdal 0.5 mg b.i.d. -Start metformin XL 500 mg q.h.s. -will DC insulin sliding scale since patient does not want it and sugars remain below 300 01/16 Patient said he reached out to his sister and he is trying to repair the relationship. Still thinks that she is trying to full him but wants to reconcile; some small, temporary acknowledgement that perhaps he is misinterpreting. Patient asked about Adderall which he is on at home; casualty underwriter said it is on hold now until this other issue can be resolved patient again discussed snacking and says he will leave his snacking to before bedtime and abstaining during the day -will hold off increasing Risperdal for now 01/17 increased risperidone 1mg po BID. 01/18 continue risperidone 1mg po BID 01/19 continue tx. 01/20 increase risperidone 1mg po daily and 2mg po qhs. 01/21 continue tx. 01/22: irritable, denies having DM. hungry. continue current mgmt. 01/23: has not been getting SSI; medical consult entered for DM mgmt. otherwise no change in presentation or plan. asking for new roommate. Plan: CV 1:1 since 05/05 oxygen Continue home medications continue Risperdal 0.5 mg b.i.d. Started metformin XL 500 mg q.h.s. Discontinue insulin sliding scale: Patient does not want Discontinue Lovenox; does not seem to be any indication that patient is on this as an outpatient and was most likely just being used during his recent medical admission Gather collateral Hyperkalemia: resolved (received Lokelma 15 g p.o.) COPD Pt with expiratory wheezing upon auscultation, seems chronic given prior presentations to the ED Does not appear to be in acute exacerbation Pt is speaking in full sentences, breathing unlabored Continue home inhalers Continue portable O2, titrate to 2L for O2>90% Prediabetes POC has been as high as 221 A1c elevated at 6.9 Anticoagulation Med rec indicated pt on enoxaparin However indication is unclear: Most likely was an unnecessary carry over from prior inpatient hospitalization and was on Lovenox for DVT prophylaxis Review of medical records offers no other indication for anticoagulation Lovenox can be discontinued at this time HTN Continue furosemide HLD Continue statin GERD PPI Chronic pain Continue Lyrica Patient educated on: diagnosis, medication risk/benefits and medical condition Informed Consent: understands, does not understand and further e Reason for continued inpatient stay Substantial Risk for: inability to function Time Spent With Patient Time: Total time managing care of this patient today ____ minutes.
[2025-01-23 20:28] LABS: Glucose, Whole Blood 188 mg/dL (60-115)
[2025-01-23] MEDS: metFORMIN HCl ER 500 MG TAB.ER.24H 1000 MG PO (20:47)
[2025-01-23] MEDS: QUEtiapine Fumarate 100 MG TABLET PO (20:48)
[2025-01-23] MEDS: Doxepin HCl 25 MG CAPSULE PO (20:48)
[2025-01-23] MEDS: traZODone HCL 50 MG TABLET PO (20:48)
[2025-01-23] MEDS: risperiDONE 2 MG TABLET PO (20:49)
[2025-01-23 20:50] VITALS: BP 128/70
[2025-01-24 06:46] LABS: Glucose, Whole Blood 320 mg/dL (60-115)
[2025-01-24 07:36] LABS: Glucose, Whole Blood 305 mg/dL (60-115)
[2025-01-24] MEDS: Insulin Lispro 100 UNIT/ML 3 ML VIAL SUBCUT ×2 (07:41→16:45)
[2025-01-24 08:00] VITALS: BP 137/71; PULSE 76; RESP 18; TEMP 36.3; O2SAT 96
--- NOTE | 2025-01-24 08:32 | HO.PSYCHPN ---
Subjective Subjective Date of Service: 01/24/25 Reason For Visit: Anxiety Disorder Unspecified/Polysubstance Abuse Subjective Notes: Conditional Voluntary Interim History: Pt slept through the night. He complaints about his roommate. Also complaints about elevated BS. He reports he feels calmer overall. He has agreed to return to his sister's house and is now in agreement to coordinate discharge with her and plan for dc this coming . He was started on prednisolone while inpt at [facility]. no clear instruction to continue halfway or taper off. Will review with hospitalist as it may contributing to to elevated BS. Review of Systems Review of Systems Pt has no acute medical complaints at this time. Mental Status Exam Mental Status Exam Narrative: Alert, oriented x 3. behavior is suspicious but cooperative and friendly on approach; calm; patient is not in distress; dressed in casual attire, rings, bracelet, tattooed arms; mood is described as ok and affect irritable; eye contact appropriate; Speech is normal rate, volume and prosody and not pressured; intermittent psychomotor agitation present; thought process is organized and goal directed; Thought content is on less paranoid ideations, and dc home soon; denies any SI/HI. Less AH. Patients insight and judgment: poor x 2 MOCA completed on 01/20/2025--> scored 14/30 most difficulty in visuospatial/executive function (2/5), language repetition(1/2), language fluency(0/1), abstraction (1/2), recall (0/5), orientation impairment in place, city and day. ACL 4.6 showing moderate cognitive impairment. Diagnostics Vital Signs (24Hr): Vital Signs - 24 hr 01/23/25 20:00 01/23/25 20:50 01/24/25 08:00 Temperature 97.5 F 97.3 F Pulse Rate 73 76 Respiratory Rate 17 18 Blood Pressure 128/70 128/70 137/71 Pulse Oximetry 98 96 Oxygen Delivery Method Nasal Cannula Room Air Oxygen Flow Rate 2 BMI result Body Mass Index 34.9 Labs 01/14/25 12:04 01/22/25 07:18 Labs: Laboratory Results - last 48 hr 01/23/25 01/23/25 01/23/25 05:48 11:13 16:09 POC Glucose 423 H* 240 H 232 H 01/23/25 01/24/2501/24/25 20:20 06:37 07:30 POC Glucose 188 H 320 H 305 H Medications Medications Current Medications Acetaminophen (Acetaminophen 325 Mg Tablet) 650 mg PO Q6H PRN PRN Reason: Headache/Pain, Scale 1-10 Last Admin: 01/23/25 15:36 Dose: 650 mg Al Hydroxide/Mg Hydroxide (Magnesium Hydrox/Alum Hydrox 30 Ml Oral.Susp) 30 ml PO Q6H PRN PRN Reason: Heartburn/Nausea Albuterol Sulfate (Albuterol Sulfate 90 Mcg 8 Gm Inhaler) 1 puff INHALE Q2H PRN PRN Reason: Shortness Of Breath Or Wheezing Albuterol Sulfate (Albuterol Sulfate (0.083%) 2.5 Mg/3 Ml Vial.Neb) 2.5 mg INHALE Q2H PRN PRN Reason: Shortness Of Breath Or Wheezing Buprenorphine/Naloxone (Buprenorphine/Naloxone 8/2 Mg Film) 1 film SUBLINGUAL TID [facility] Last Admin: 01/23/25 20:47 Dose: 1 film Clonidine HCl (Clonidine Hcl 0.2 Mg Tablet) 0.2 mg PO BID [facility] Last Admin: 01/23/25 20:50 Dose: 0.2 mg Dextrose (Dextrose 50 % 25 Gm/50 Ml Syringe) 25 gm IVPUSH Q15M PRN; Protocol PRN Reason: per Hypoglycemia Standing Ord. Divalproex Sodium (Divalproex Sodium 500 Mg Tablet.Dr) 1,000 mg PO BID [facility] Last Admin: 01/23/25 20:48 Dose: 1,000 mg Doxepin HCl (Doxepin Hcl 25 Mg Capsule) 25 mg PO BEDTIME [facility] Last Admin: 01/23/25 20:48 Dose: 25 mg Finasteride (Finasteride 5 Mg Tablet) 5 mg PO DAILY [facility] Last Admin: 01/23/25 08:14 Dose: 5 mg Glucose (Glucose Gel 15 Gm Gel..Gram.) 15 gm PO Q15M PRN; Protocol PRN Reason: per Hypoglycemia Standing Ord. Glucose (Glucose Gel 15 Gm Gel..Gram.) 15 gm PO Q15M PRN; Protocol PRN Reason: per Hypoglycemia Standing Ord. Insulin Glargine (Insulin Glargine,Hum.Rec.Anlog 100 Unit/Ml 10 Ml Vial) 10 unit SUBCUT DAILY [facility] Last Admin: 01/23/25 11:20 Dose: 10 unit Insulin Human Lispro (Insulin Lispro 100 Unit/Ml 3 Ml Vial) 0 unit SUBCUT QIDACHS [facility]; Protocol Last Admin: 01/24/25 07:41 Dose: 8 unit Lidocaine (Lidocaine 4 % Patch Adh..Patch) 2 patch TRANSDERMA DAILY [facility] Last Admin: 01/23/25 08:15 Dose: Not Given Magnesium Hydroxide (Milk Of Magnesia 30 Ml Oral.Susp) 30 ml PO DAILY PRN PRN Reason: Constipation Metformin HCl (Metformin Hcl Er 500 Mg Tab.Er.24h) 1,000 mg PO BID [facility] Last Admin: 01/23/25 20:47 Dose: 1,000 mg Nicotine Polacrilex (Nicotine Polacrilex 2 Mg Gum) 4 mg BUCCAL Q2H PRN PRN Reason: Nicotine Cravings Last Admin: 01/17/25 15:14 Dose: 4 mg Omeprazole (Omeprazole 20 Mg Capsule.Dr) 20 mg PO BID [facility] Last Admin: 01/23/25 20:49 Dose: 20 mg Prednisone (Prednisone 20 Mg Tablet) 20 mg PO BID [facility] Last Admin: 01/23/25 20:48 Dose: 20 mg Pregabalin (Pregabalin 200 Mg Capsule) 200 mg PO BID [facility] Last Admin: 01/23/25 20:50 Dose: 200 mg Quetiapine Fumarate (Quetiapine Fumarate 100 Mg Tablet) 100 mg PO BEDTIME [facility] Last Admin: 01/23/25 20:48 Dose: 100 mg Risperidone (Risperidone 1 Mg Tablet) 1 mg PO DAILY [facility] Last Admin: 01/23/25 08:15 Dose: 1 mg Risperidone (Risperidone 2 Mg Tablet) 2 mg PO BEDTIME [facility] Last Admin: 01/23/25 20:49 Dose: 2 mg Trazodone HCl (Trazodone Hcl 50 Mg Tablet) 50 mg PO BEDTIME MRX1 PRN PRN Reason: Insomnia Last Admin: 01/23/25 20:48 Dose: 50 mg Allergies Allergies Allergy/AdvReac Type Severity Reaction Status Date / Time hydrocodone Allergy Unknown Verified 01/14/25 02:11 Penicillins Allergy Unknown Verified 01/14/25 02:13 Assessment & Plan Assessment & Plan (1) Schizoaffective disorder, bipolar type: Status: Acute Code(s): F25.0 - Schizoaffective disorder, bipolar type Plan HPI: Patient is a 54-year-old male with history of bipolar disorder, PTSD, substance abuse in sustained remission, COPD on home O2 (05/05), non-IDDM, uses a walker who presents for worsening paranoid ideations following medical admission for mild COPD exacerbation. On the unit, patient very anxious about his belongings and demanded being able to watch staff examine them. Patient said he was at home at his sister's where he has been living for 4 months and had trouble breathing and so wanted to go to the hospital where he was treated for COPD exacerbation. While there patient expressed paranoid ideations. Patient reports he has been sober for 4 years and was living in a sober home until about 4 months ago when he moved into his sister's house. He says ever since then, his nephew, her son has been doing little things, subtle things to antagonize him. His sister denies this and will say her son is not even in the house however patient knows this is not true. He says this has been escalating over the past few weeks. This past week, he was at [employer] (he wants brief writer to know that the police brought him there so he could buy a cell phone) to by a cell phone and upon returned to his home, he was upstairs and said he heard his nephew say that he was going to steal the cell phone; he laments that again his sister insisted that her son (patient's nephew) was not in the house at all however patient is convinced that he was. Patient says while at the hospital, he knows that his sister got admitted there because he saw what he thought was the back of her ducking into a room and isn't fueled by hospital staff that said she was not there. Patient also believes that his sister is giving him extra medications in a box of medications some of which are not his and is upset that she does not bring the full box to him to prove it; he also thinks that she will discontinue some medications his doctor wants him to be on for some unknown reason. Patient is beside himself with grief because he loves his sister and can not understand why over these past 4 months she is turning against him and allowing her son to antagonize him. Patient acknowledges that he will intermittently have auditory hallucinations of hearing a word being said but when he turns to look there is no one there. Formulation/clinical reasoning: Reported History of bipolar disorder however given paranoid delusions will change diagnosis to what seems more likely to be schizoaffective disorder. Not sure what has caused exacerbation of symptoms which seemed to have been brewing for the past several months; patient is amenable to medication changes -Regarding Lovenox, patient was admitted with this remaining on his medication list. However this is unusual for someone to be prescribed on Lovenox as an outpatient; brief writer reviewed history of pharmacy prescriptions and there is no evidence Lovenox is ever been prescribed; patient also denies to brief writer any history at all of blood clots. Seems much more likely that Lovenox was just used while patient was medically admitted for COPD exacerbation; brief writer reviewed with hospitalist ADILSON who agrees. For now will discontinue Hospital course: 01/15 Patient continues to have paranoid ideations and thought someone threw something at his head or that people were laughing at him on the unit.? He agrees to starting risperidone and brief writer reviewed risks/side effects including galactorrhea; also discussed patient's hemoglobin A1c 6.9 and patient is snacking throughout the day; he says he used to be on metformin; says he has never been on insulin sliding scale and does not want to be on 1 now.? Roll Cutting Operator could not find history of prescription for this however this medication is warranted; brief writer reviewed risks and patient agrees -potassium returned to WNL -start Risperdal 0.5 mg b.i.d. -Start metformin XL 500 mg q.h.s. -will DC insulin sliding scale since patient does not want it and sugars remain below 300 01/16 Patient said he reached out to his sister and he is trying to repair the relationship. Still thinks that she is trying to full him but wants to reconcile; some small, temporary acknowledgement that perhaps he is misinterpreting. Patient asked about Adderall which he is on at home; brief writer said it is on hold now until this other issue can be resolved patient again discussed snacking and says he will leave his snacking to before bedtime and abstaining during the day -will hold off increasing Risperdal for now 01/17 increased risperidone 1mg po BID. 01/18 continue risperidone 1mg po BID 01/19 continue tx. 01/20 increase risperidone 1mg po daily and 2mg po qhs. 01/21 continue tx. 01/22: irritable, denies having DM. hungry. continue current mgmt. 01/23: has not been getting SSI; medical consult entered for DM mgmt. otherwise no change in presentation or plan. asking for new roommate. 01/24 continue tx. Plan: CV 1:1 since 05/05 oxygen Continue home medications continue Risperdal 0.5 mg b.i.d. Started metformin XL 500 mg q.h.s. Discontinue insulin sliding scale: Patient does not want Discontinue Lovenox; does not seem to be any indication that patient is on this as an outpatient and was most likely just being used during his recent medical admission Gather collateral Hyperkalemia: resolved (received Lokelma 15 g p.o.) COPD Pt with expiratory wheezing upon auscultation, seems chronic given prior presentations to the ED Does not appear to be in acute exacerbation Pt is speaking in full sentences, breathing unlabored Continue home inhalers Continue portable O2, titrate to 2L for O2>90% Prediabetes POC has been as high as 221 A1c elevated at 6.9 Anticoagulation Med rec indicated pt on enoxaparin However indication is unclear: Most likely was an unnecessary carry over from prior inpatient hospitalization and was on Lovenox for DVT prophylaxis Review of medical records offers no other indication for anticoagulation Lovenox can be discontinued at this time HTN Continue furosemide HLD Continue statin GERD PPI Chronic pain Continue Lyrica Patient educated on: diagnosis, medication risk/benefits and medical condition Informed Consent: understands, does not understand and further e Reason for continued inpatient stay Substantial Risk for: inability to function Time Spent With Patient Time: Total time managing care of this patient today ____ minutes.
[2025-01-24] MEDS: Insulin Glargine,Hum.rec.anlog 100 UNIT/ML 10 ML VIAL 10 UNIT SUBCUT (08:41)
[2025-01-24] MEDS: Omeprazole 20 MG CAPSULE.DR PO ×2 (08:42→20:10)
[2025-01-24] MEDS: Buprenorphine/Naloxone 8/2 mg FILM 1 FILM SUBLINGUAL ×3 (08:42→20:08)
[2025-01-24] MEDS: Divalproex Sodium 500 MG TABLET.DR 1000 MG PO ×2 (08:42→20:09)
[2025-01-24] MEDS: cloNIDine HCL 0.2 MG TABLET PO ×2 (08:42→20:08)
[2025-01-24] MEDS: predniSONE 20 MG TABLET PO (08:42)
[2025-01-24] MEDS: Finasteride 5 MG TABLET PO (08:42)
[2025-01-24] MEDS: Pregabalin 200 MG CAPSULE PO ×2 (08:42→20:10)
[2025-01-24] MEDS: risperiDONE 1 MG TABLET PO (08:42)
[2025-01-24] MEDS: metFORMIN HCl ER 500 MG TAB.ER.24H 1000 MG PO ×2 (08:43→20:09)
[2025-01-24] MEDS: Lidocaine 4 % Patch ADH..PATCH 2 PATCH TRANSDERMA (09:15)
[2025-01-24 11:10] LABS: Glucose, Whole Blood 89 mg/dL (60-115)
[2025-01-24 15:39] LABS: Glucose, Whole Blood 175 mg/dL (60-115)
[2025-01-24 20:00] VITALS: BP 138/79; PULSE 77; RESP 18; TEMP 36; O2SAT 97
[2025-01-24] MEDS: Doxepin HCl 25 MG CAPSULE PO (20:09)
[2025-01-24] MEDS: QUEtiapine Fumarate 100 MG TABLET PO (20:10)
[2025-01-24] MEDS: risperiDONE 2 MG TABLET PO (20:10)
[2025-01-24 20:21] LABS: Glucose, Whole Blood 134 mg/dL (60-115)
[2025-01-24] MEDS: Acetaminophen 325 MG TABLET 650 MG PO (20:36)
[2025-01-25 06:33] LABS: Glucose, Whole Blood 112 mg/dL (60-115)
[2025-01-25 08:00] VITALS: BP 169/86; PULSE 71; RESP 15; TEMP 35.9; O2SAT 97
[2025-01-25] MEDS: Buprenorphine/Naloxone 8/2 mg FILM 1 FILM SUBLINGUAL ×3 (08:16→20:40)
[2025-01-25] MEDS: Insulin Glargine,Hum.rec.anlog 100 UNIT/ML 10 ML VIAL 10 UNIT SUBCUT (08:20)
[2025-01-25] MEDS: predniSONE 20 MG TABLET PO (08:52)
[2025-01-25] MEDS: metFORMIN HCl ER 500 MG TAB.ER.24H 1000 MG PO ×2 (08:54→20:41)
[2025-01-25] MEDS: risperiDONE 1 MG TABLET PO (08:54)
[2025-01-25] MEDS: Divalproex Sodium 500 MG TABLET.DR 1000 MG PO ×2 (08:54→20:42)
[2025-01-25] MEDS: Lidocaine 4 % Patch ADH..PATCH 2 PATCH TRANSDERMA (08:54)
[2025-01-25 08:56] VITALS: BP 169/86
[2025-01-25] MEDS: cloNIDine HCL 0.2 MG TABLET PO ×2 (08:56→20:41)
[2025-01-25] MEDS: Finasteride 5 MG TABLET PO (08:56)
[2025-01-25] MEDS: Omeprazole 20 MG CAPSULE.DR PO ×2 (08:57→20:41)
[2025-01-25] MEDS: Pregabalin 200 MG CAPSULE PO ×2 (08:57→20:41)
[2025-01-25] MEDS: Acetaminophen 325 MG TABLET 650 MG PO ×2 (09:44→17:17)
[2025-01-25 11:29] LABS: Glucose, Whole Blood 185 mg/dL (60-115)
[2025-01-25] MEDS: Insulin Lispro 100 UNIT/ML 3 ML VIAL SUBCUT ×2 (11:29→17:20)
--- NOTE | 2025-01-25 11:33 | P.PNPSI_ITS ---
Subjective Subjective Date of Service: 01/25/25 Reason For Visit: Anxiety Disorder Unspecified/Polysubstance Abuse Subjective Notes: Conditional Voluntary Interim History: Pt slept through the night. Pt presents as less paranoid and suspicious but has some irritable edge when demands not met immediately. He denies SI/HI. Taking medications as prescribed. Review of Systems Review of Systems Pt has no acute medical complaints at this time. Mental Status Exam Mental Status Exam Narrative: Alert, oriented x 3. behavior is suspicious but cooperative and friendly on approach; calm; patient is not in distress; dressed in casual attire, rings, bracelet, tattooed arms; mood is described as ok and affect irritable; eye contact appropriate; Speech is normal rate, volume and prosody and not pressured; intermittent psychomotor agitation present; thought process is organized and goal directed; Thought content is on less paranoid ideations, and dc home soon; denies any SI/HI. Less AH. Patients insight and judgment: poor x 2 MOCA completed on 01/20/2025--> scored 14/30 most difficulty in visuospatial/executive function (2/5), language repetition(1/2), language fluency(0/1), abstraction (1/2), recall (0/5), orientation impairment in place, city and day. ACL 4.6 showing moderate cognitive impairment. Diagnostics Vital Signs (24Hr): Vital Signs - 24 hr 01/24/25 20:00 01/25/25 08:00 01/25/25 08:56 Temperature 96.8 F 96.7 F L Pulse Rate 77 71 Respiratory Rate 18 15 Blood Pressure 138/79 169/86 H 169/86 H Pulse Oximetry 97 97 Oxygen Delivery Method Room Air Nasal Cannula BMI result Body Mass Index 34.9 Labs 01/14/25 12:04 01/22/25 07:18 Labs: Laboratory Results - last 48 hr 01/23/25 01/23/25 01/24/25 16:09 20:20 06:37 POC Glucose 232 H 188 H 320 H 01/24/25 01/24/25 01/24/25 07:30 11:05 15:35 POC Glucose 305 H 89 175 H 01/24/25 01/25/25 01/25/25 20:17 06:29 11:25 POC Glucose 134 H 112 185 H Medications Medications Current Medications Acetaminophen (Acetaminophen 325 Mg Tablet) 650 mg PO Q6H PRN PRN Reason: Headache/Pain, Scale 1-10 Last Admin: 01/25/25 09:44 Dose: 650 mg Al Hydroxide/Mg Hydroxide (Magnesium Hydrox/Alum Hydrox 30 Ml Oral.Susp) 30 ml PO Q6H PRN PRN Reason: Heartburn/Nausea Albuterol Sulfate (Albuterol Sulfate 90 Mcg 8 Gm Inhaler) 1 puff INHALE Q2H PRN PRN Reason: Shortness Of Breath Or Wheezing Albuterol Sulfate (Albuterol Sulfate (0.083%) 2.5 Mg/3 Ml Vial.Neb) 2.5 mg INHALE Q2H PRN PRN Reason: Shortness Of Breath Or Wheezing Buprenorphine/Naloxone (Buprenorphine/Naloxone 8/2 Mg Film) 1 film SUBLINGUAL TID [facility] Last Admin: 01/25/25 08:16 Dose: 1 film Clonidine HCl (Clonidine Hcl 0.2 Mg Tablet) 0.2 mg PO BID [facility] Last Admin: 01/25/25 08:56 Dose: 0.2 mg Dextrose (Dextrose 50 % 25 Gm/50 Ml Syringe) 25 gm IVPUSH Q15M PRN; Protocol PRN Reason: per Hypoglycemia Standing Ord. Divalproex Sodium (Divalproex Sodium 500 Mg Tablet.) 1,000 mg PO BID [facility] Last Admin: 01/25/25 08:54 Dose: 1,000 mg Doxepin HCl (Doxepin Hcl 25 Mg Capsule) 25 mg PO BEDTIME [facility] Last Admin: 01/24/25 20:09 Dose: 25 mg Finasteride (Finasteride 5 Mg Tablet) 5 mg PO DAILY [facility] Last Admin: 01/25/25 08:56 Dose: 5 mg Glucose (Glucose Gel 15 Gm Gel..Gram.) 15 gm PO Q15M PRN; Protocol PRN Reason: per Hypoglycemia Standing Ord. Glucose (Glucose Gel 15 Gm Gel..Gram.) 15 gm PO Q15M PRN; Protocol PRN Reason: per Hypoglycemia Standing Ord. Insulin Glargine (Insulin Glargine,Hum.Rec.Anlog 100 Unit/Ml 10 Ml Vial) 10 unit SUBCUT DAILY [facility] Last Admin: 01/25/25 08:20 Dose: 10 unit Insulin Human Lispro (Insulin Lispro 100 Unit/Ml 3 Ml Vial) 0 unit SUBCUT QIDACHS [facility]; Protocol Last Admin: 01/25/25 11:29 Dose: 2 unit Lidocaine (Lidocaine 4 % Patch Adh..Patch) 2 patch TRANSDERMA DAILY [facility] Last Admin: 01/25/25 08:54 Dose: 2 patch Magnesium Hydroxide (Milk Of Magnesia 30 Ml Oral.Susp) 30 ml PO DAILY PRN PRN Reason: Constipation Metformin HCl (Metformin Hcl Er 500 Mg Tab.Er.24h) 1,000 mg PO BID [facility] Last Admin: 01/25/25 08:54 Dose: 1,000 mg Nicotine Polacrilex (Nicotine Polacrilex 2 Mg Gum) 4 mg BUCCAL Q2H PRN PRN Reason: Nicotine Cravings Last Admin: 01/17/25 15:14 Dose: 4 mg Omeprazole (Omeprazole 20 Mg Capsule.Dr) 20 mg PO BID [facility] Last Admin: 01/25/25 08:57 Dose: 20 mg Prednisone (Prednisone 20 Mg Tablet) 20 mg PO DAILY [facility]; Taper Stop: 02/03/25 08:59 Last Admin: 01/25/25 08:52 Dose: 20 mg Pregabalin (Pregabalin 200 Mg Capsule) 200 mg PO BID [facility] Last Admin: 01/25/25 08:57 Dose: 200 mg Quetiapine Fumarate (Quetiapine Fumarate 100 Mg Tablet) 100 mg PO BEDTIME [facility] Last Admin: 01/24/25 20:10 Dose: 100 mg Risperidone (Risperidone 1 Mg Tablet) 1 mg PO DAILY [facility] Last Admin: 01/25/25 08:54 Dose: 1 mg Risperidone (Risperidone 2 Mg Tablet) 2 mg PO BEDTIME [facility] Last Admin: 01/24/25 20:10 Dose: 2 mg Trazodone HCl (Trazodone Hcl 50 Mg Tablet) 50 mg PO BEDTIME MRX1 PRN PRN Reason: Insomnia Last Admin: 01/23/25 20:48 Dose: 50 mg Allergies Allergies Allergy/AdvReac Type Severity Reaction Status Date / Time hydrocodone Allergy Unknown Verified 01/14/25 02:11 Penicillins Allergy Unknown Verified 01/14/25 02:13 Assessment & Plan Assessment & Plan (1) Schizoaffective disorder, bipolar type: Status: Acute Code(s): F25.0 - Schizoaffective disorder, bipolar type Plan HPI: Patient is a 54-year-old male with history of bipolar disorder, PTSD, substance abuse in sustained remission, COPD on home O2 (05/05), non-IDDM, uses a walker who presents for worsening paranoid ideations following medical admission for mild COPD exacerbation. On the unit, patient very anxious about his belongings and demanded being able to watch staff examine them. Patient said he was at home at his sister's where he has been living for 4 months and had trouble breathing and so wanted to go to the hospital where he was treated for COPD exacerbation. While there patient expressed paranoid ideations. Patient reports he has been sober for 4 years and was living in a sober home until about 4 months ago when he moved into his sister's house. He says ever since then, his nephew, her son has been doing little things, subtle things to antagonize him. His sister denies this and will say her son is not even in the house however patient knows this is not true. He says this has been escalating over the past few weeks. This past week, he was at [employer] (he wants property underwriter to know that the police brought him there so he could buy a cell phone) to by a cell phone and upon returned to his home, he was upstairs and said he heard his nephew say that he was going to steal the cell phone; he laments that again his sister insisted that her son (patient's nephew) was not in the house at all however patient is convinced that he was. Patient says while at the hospital, he knows that his sister got admitted there because he saw what he thought was the back of her ducking into a room and isn't fueled by hospital staff that said she was not there. Patient also believes that his sister is giving him extra medications in a box of medications some of which are not his and is upset that she does not bring the full box to him to prove it; he also thinks that she will discontinue some medications his doctor wants him to be on for some unknown reason. Patient is beside himself with grief because he loves his sister and can not understand why over these past 4 months she is turning against him and allowing her son to antagonize him. Patient acknowledges that he will intermittently have auditory hallucinations of hearing a word being said but when he turns to look there is no one there. Formulation/clinical reasoning: Reported History of bipolar disorder however given paranoid delusions will change diagnosis to what seems more likely to be schizoaffective disorder. Not sure what has caused exacerbation of symptoms which seemed to have been brewing for the past several months; patient is amenable to medication changes -Regarding Lovenox, patient was admitted with this remaining on his medication list. However this is unusual for someone to be prescribed on Lovenox as an outpatient; property underwriter reviewed history of pharmacy prescriptions and there is no evidence Lovenox is ever been prescribed; patient also denies to property underwriter any history at all of blood clots. Seems much more likely that Lovenox was just used while patient was medically admitted for COPD exacerbation; property underwriter reviewed with hospitalist ADILSON who agrees. For now will discontinue Hospital course: 01/15 Patient continues to have paranoid ideations and thought someone threw something at his head or that people were laughing at him on the unit.? He agrees to starting risperidone and property underwriter reviewed risks/side effects including galactorrhea; also discussed patient's hemoglobin A1c 6.9 and patient is snacking throughout the day; he says he used to be on metformin; says he has never been on insulin sliding scale and does not want to be on 1 now.? Door Trimmer could not find history of prescription for this however this medication is warranted; property underwriter reviewed risks and patient agrees -potassium returned to WNL -start Risperdal 0.5 mg b.i.d. -Start metformin XL 500 mg q.h.s. -will DC insulin sliding scale since patient does not want it and sugars remain below 300 01/16 Patient said he reached out to his sister and he is trying to repair the relationship. Still thinks that she is trying to full him but wants to reconcile; some small, temporary acknowledgement that perhaps he is misinterpreting. Patient asked about Adderall which he is on at home; property underwriter said it is on hold now until this other issue can be resolved patient again discussed snacking and says he will leave his snacking to before bedtime and abstaining during the day -will hold off increasing Risperdal for now 01/17 increased risperidone 1mg po BID. 01/18 continue risperidone 1mg po BID 01/19 continue tx. 01/20 increase risperidone 1mg po daily and 2mg po qhs. 01/21 continue tx. 01/22: irritable, denies having DM. hungry. continue current mgmt. 01/23: has not been getting SSI; medical consult entered for DM mgmt. otherwise no change in presentation or plan. asking for new roommate. 01/24 continue tx. 01/25 continue tx. Plan: CV 1:1 since 05/05 oxygen Continue home medications continue Risperdal 0.5 mg b.i.d. Started metformin XL 500 mg q.h.s. Discontinue insulin sliding scale: Patient does not want Discontinue Lovenox; does not seem to be any indication that patient is on this as an outpatient and was most likely just being used during his recent medical admission Gather collateral Hyperkalemia: resolved (received Lokelma 15 g p.o.) COPD Pt with expiratory wheezing upon auscultation, seems chronic given prior presentations to the ED Does not appear to be in acute exacerbation Pt is speaking in full sentences, breathing unlabored Continue home inhalers Continue portable O2, titrate to 2L for O2>90% Prediabetes POC has been as high as 221 A1c elevated at 6.9 Anticoagulation Med rec indicated pt on enoxaparin However indication is unclear: Most likely was an unnecessary carry over from prior inpatient hospitalization and was on Lovenox for DVT prophylaxis Review of medical records offers no other indication for anticoagulation Lovenox can be discontinued at this time HTN Continue furosemide HLD Continue statin GERD PPI Chronic pain Continue Lyrica Patient educated on: diagnosis, medication risk/benefits and medical condition Informed Consent: understands, does not understand and further e Reason for continued inpatient stay Substantial Risk for: inability to function Time Spent With Patient Time: Total time managing care of this patient today ____ minutes.
[2025-01-25 17:21] LABS: Glucose, Whole Blood 193 mg/dL (60-115)
[2025-01-25 20:00] VITALS: BP 127/66; PULSE 94; RESP 18; TEMP 36.4; O2SAT 95
[2025-01-25 20:41] VITALS: BP 127/66
[2025-01-25] MEDS: Doxepin HCl 25 MG CAPSULE PO (20:41)
[2025-01-25] MEDS: QUEtiapine Fumarate 100 MG TABLET PO (20:41)
[2025-01-25] MEDS: risperiDONE 2 MG TABLET PO (20:42)
[2025-01-25 20:49] LABS: Glucose, Whole Blood 144 mg/dL (60-115)
[2025-01-26 06:36] LABS: Glucose, Whole Blood 146 mg/dL (60-115)
[2025-01-26 08:00] VITALS: BP 120/76; PULSE 78; RESP 18; TEMP 36; O2SAT 96
[2025-01-26] MEDS: Lidocaine 4 % Patch ADH..PATCH 2 PATCH TRANSDERMA (08:19)
[2025-01-26] MEDS: Insulin Glargine,Hum.rec.anlog 100 UNIT/ML 10 ML VIAL 10 UNIT SUBCUT (08:19)
[2025-01-26] MEDS: Buprenorphine/Naloxone 8/2 mg FILM 1 FILM SUBLINGUAL ×3 (08:20→20:04)
[2025-01-26 09:00] VITALS: BP 120/76
[2025-01-26] MEDS: Finasteride 5 MG TABLET PO (09:00)
[2025-01-26] MEDS: cloNIDine HCL 0.2 MG TABLET PO ×2 (09:00→21:03)
[2025-01-26] MEDS: Omeprazole 20 MG CAPSULE.DR PO ×2 (09:00→21:03)
[2025-01-26] MEDS: Pregabalin 200 MG CAPSULE PO ×2 (09:00→21:03)
[2025-01-26] MEDS: predniSONE 20 MG TABLET PO (09:00)
[2025-01-26] MEDS: risperiDONE 1 MG TABLET PO (09:01)
[2025-01-26] MEDS: metFORMIN HCl ER 500 MG TAB.ER.24H 1000 MG PO ×2 (09:01→21:03)
[2025-01-26] MEDS: Divalproex Sodium 500 MG TABLET.DR 1000 MG PO ×2 (09:01→21:03)
[2025-01-26] MEDS: Acetaminophen 325 MG TABLET 650 MG PO ×2 (11:09→20:01)
[2025-01-26 11:15] LABS: Glucose, Whole Blood 194 mg/dL (60-115)
[2025-01-26] MEDS: Insulin Lispro 100 UNIT/ML 3 ML VIAL SUBCUT ×2 (11:41→16:24)
[2025-01-26] MEDS: NaPROXEN 250 MG TABLET PO (15:15)
[2025-01-26 16:25] LABS: Glucose, Whole Blood 213 mg/dL (60-115)
--- NOTE | 2025-01-26 16:36 | P.PNPSI_ITS ---
Subjective Subjective Date of Service: 01/26/25 Reason For Visit: Anxiety Disorder Unspecified/Polysubstance Abuse Subjective Notes: Conditional Voluntary Interim History: Pt slept through the night. Pt has been visible on the unit. He is intermittently irritable but able to be redirected. He is less paranoid about his sister, and her tampering his medications. No SI/HI. Taking medications as prescribed. Medication Compliance: Yes Review of Systems Review of Systems Pt has no acute medical complaints at this time. Mental Status Exam Mental Status Exam Narrative: Alert, oriented x 3. behavior is suspicious but cooperative and friendly on approach; calm; patient is not in distress; dressed in casual attire, rings, bracelet, tattooed arms; mood is described as ok and affect irritable; eye contact appropriate; Speech is normal rate, volume and prosody and not pressured; intermittent psychomotor agitation present; thought process is organized and goal directed; Thought content is on less paranoid ideations, and dc home soon; denies any SI/HI. Less AH. Patients insight and judgment: poor x 2 MOCA completed on 01/20/2025--> scored 14/30 most difficulty in visuospatial/executive function (2/5), language repetition(1/2), language fluency(0/1), abstraction (1/2), recall (0/5), orientation impairment in place, city and day. ACL 4.6 showing moderate cognitive impairment. Diagnostics Vital Signs (24Hr): Vital Signs - 24 hr 01/25/25 20:00 01/25/25 20:41 01/26/25 08:00 Temperature 97.5 F 96.8 F Pulse Rate 94 78 Respiratory Rate 18 18 Blood Pressure 127/66 127/66 120/76 Pulse Oximetry 95 96 Oxygen Delivery Method Nasal Cannula Nasal Cannula 01/26/25 09:00 Temperature Pulse Rate Respiratory Rate Blood Pressure 120/76 Pulse Oximetry Oxygen Delivery Method BMI result Body Mass Index 34.9 Labs 01/14/25 12:04 01/22/25 07:18 Labs: Laboratory Results - last 48 hr 01/24/25 01/25/25 01/25/25 20:17 06:29 11:25 POC Glucose 134 H 112 185 H 01/25/25 01/25/25 01/26/25 17:16 20:38 06:30 POC Glucose 193 H 144 H 146 H 01/26/25 01/26/25 11:11 16:22 POC Glucose 194 H 213 H Medications Medications Current Medications Acetaminophen (Acetaminophen 325 Mg Tablet) 650 mg PO Q6H PRN PRN Reason: Headache/Pain, Scale 1-10 Last Admin: 01/26/25 11:09 Dose: 650 mg Al Hydroxide/Mg Hydroxide (Magnesium Hydrox/Alum Hydrox 30 Ml Oral.Susp) 30 ml PO Q6H PRN PRN Reason: Heartburn/Nausea Albuterol Sulfate (Albuterol Sulfate 90 Mcg 8 Gm Inhaler) 1 puff INHALE Q2H PRN PRN Reason: Shortness Of Breath Or Wheezing Albuterol Sulfate (Albuterol Sulfate (0.083%) 2.5 Mg/3 Ml Vial.Neb) 2.5 mg INHALE Q2H PRN PRN Reason: Shortness Of Breath Or Wheezing Buprenorphine/Naloxone (Buprenorphine/Naloxone 8/2 Mg Film) 1 film SUBLINGUAL TID [facility] Last Admin: 01/26/25 14:51 Dose: 1 film Clonidine HCl (Clonidine Hcl 0.2 Mg Tablet) 0.2 mg PO BID [facility] Last Admin: 01/26/25 09:00 Dose: 0.2 mg Dextrose (Dextrose 50 % 25 Gm/50 Ml Syringe) 25 gm IVPUSH Q15M PRN; Protocol PRN Reason: per Hypoglycemia Standing Ord. Divalproex Sodium (Divalproex Sodium 500 Mg Tablet.Dr) 1,000 mg PO BID [facility] Last Admin: 01/26/25 09:01 Dose: 1,000 mg Doxepin HCl (Doxepin Hcl 25 Mg Capsule) 25 mg PO BEDTIME [facility] Last Admin: 01/25/25 20:41 Dose: 25 mg Finasteride (Finasteride 5 Mg Tablet) 5 mg PO DAILY [facility] Last Admin: 01/26/25 09:00 Dose: 5 mg Glucose (Glucose Gel 15 Gm Gel..Gram.) 15 gm PO Q15M PRN; Protocol PRN Reason: per Hypoglycemia Standing Ord. Glucose (Glucose Gel 15 Gm Gel..Gram.) 15 gm PO Q15M PRN; Protocol PRN Reason: per Hypoglycemia Standing Ord. Insulin Glargine (Insulin Glargine,Hum.Rec.Anlog 100 Unit/Ml 10 Ml Vial) 10 unit SUBCUT DAILY [facility] Last Admin: 01/26/25 08:19 Dose: 10 unit Insulin Human Lispro (Insulin Lispro 100 Unit/Ml 3 Ml Vial) 0 unit SUBCUT QIDACHS [facility]; Protocol Last Admin: 01/26/25 16:24 Dose: 4 unit Lidocaine (Lidocaine 4 % Patch Adh..Patch) 2 patch TRANSDERMA DAILY [facility] Last Admin: 01/26/25 08:19 Dose: 2 patch Magnesium Hydroxide (Milk Of Magnesia 30 Ml Oral.Susp) 30 ml PO DAILY PRN PRN Reason: Constipation Metformin HCl (Metformin Hcl Er 500 Mg Tab.Er.24h) 1,000 mg PO BID [facility] Last Admin: 01/26/25 09:01 Dose: 1,000 mg Nicotine Polacrilex (Nicotine Polacrilex 2 Mg Gum) 4 mg BUCCAL Q2H PRN PRN Reason: Nicotine Cravings Last Admin: 01/17/25 15:14 Dose: 4 mg Omeprazole (Omeprazole 20 Mg Capsule.Dr) 20 mg PO BID [facility] Last Admin: 01/26/25 09:00 Dose: 20 mg Prednisone (Prednisone 20 Mg Tablet) 20 mg PO DAILY [facility]; Taper Stop: 02/03/25 08:59 Last Admin: 01/26/25 09:00 Dose: 20 mg Pregabalin (Pregabalin 200 Mg Capsule) 200 mg PO BID [facility] Last Admin: 01/26/25 09:00 Dose: 200 mg Quetiapine Fumarate (Quetiapine Fumarate 50 Mg Tablet) 50 mg PO BEDTIME [facility] Risperidone (Risperidone 1 Mg Tablet) 1 mg PO DAILY [facility] Last Admin: 01/26/25 09:01 Dose: 1 mg Risperidone (Risperidone 2 Mg Tablet) 2 mg PO BEDTIME [facility] Last Admin: 01/25/25 20:42 Dose: 2 mg Trazodone HCl (Trazodone Hcl 50 Mg Tablet) 50 mg PO BEDTIME [facility] PRN PRN Reason: Insomnia Last Admin: 01/23/25 20:48 Dose: 50 mg Allergies Allergies Allergy/AdvReac Type Severity Reaction Status Date / Time hydrocodone Allergy Unknown Verified 01/14/25 02:11 Penicillins Allergy Unknown Verified 01/14/25 02:13 Assessment & Plan Assessment & Plan (1) Schizoaffective disorder, bipolar type: Status: Acute Code(s): F25.0 - Schizoaffective disorder, bipolar type Plan HPI: Patient is a 54-year-old male with history of bipolar disorder, PTSD, substance abuse in sustained remission, COPD on home O2 (05/05), non-IDDM, uses a walker who presents for worsening paranoid ideations following medical admission for mild COPD exacerbation. On the unit, patient very anxious about his belongings and demanded being able to watch staff examine them. Patient said he was at home at his sister's where he has been living for 4 months and had trouble breathing and so wanted to go to the hospital where he was treated for COPD exacerbation. While there patient expressed paranoid ideations. Patient reports he has been sober for 4 years and was living in a sober home until about 4 months ago when he moved into his sister's house. He says ever since then, his nephew, her son has been doing little things, subtle things to antagonize him. His sister denies this and will say her son is not even in the house however patient knows this is not true. He says this has been escalating over the past few weeks. This past week, he was at [employer] (he wants jingle writer to know that the police brought him there so he could buy a cell phone) to by a cell phone and upon returned to his home, he was upstairs and said he heard his nephew say that he was going to steal the cell phone; he laments that again his sister insisted that her son (patient's nephew) was not in the house at all however patient is convinced that he was. Patient says while at the hospital, he knows that his sister got admitted there because he saw what he thought was the back of her ducking into a room and isn't fueled by hospital staff that said she was not there. Patient also believes that his sister is giving him extra medications in a box of medications some of which are not his and is upset that she does not bring the full box to him to prove it; he also thinks that she will discontinue some medications his doctor wants him to be on for some unknown reason. Patient is beside himself with grief because he loves his sister and can not understand why over these past 4 months she is turning against him and allowing her son to antagonize him. Patient acknowledges that he will intermittently have auditory hallucinations of hearing a word being said but when he turns to look there is no one there. Formulation/clinical reasoning: Reported History of bipolar disorder however given paranoid delusions will change diagnosis to what seems more likely to be schizoaffective disorder. Not sure what has caused exacerbation of symptoms which seemed to have been brewing for the past several months; patient is amenable to medication changes -Regarding Lovenox, patient was admitted with this remaining on his medication list. However this is unusual for someone to be prescribed on Lovenox as an outpatient; jingle writer reviewed history of pharmacy prescriptions and there is no evidence Lovenox is ever been prescribed; patient also denies to jingle writer any history at all of blood clots. Seems much more likely that Lovenox was just used while patient was medically admitted for COPD exacerbation; jingle writer reviewed with hospitalist ADILSON who agrees. For now will discontinue Hospital course: 01/15 Patient continues to have paranoid ideations and thought someone threw something at his head or that people were laughing at him on the unit.? He agrees to starting risperidone and jingle writer reviewed risks/side effects including galactorrhea; also discussed patient's hemoglobin A1c 6.9 and patient is snacking throughout the day; he says he used to be on metformin; says he has never been on insulin sliding scale and does not want to be on 1 now.? Siderographer could not find history of prescription for this however this medication is warranted; jingle writer reviewed risks and patient agrees -potassium returned to WNL -start Risperdal 0.5 mg b.i.d. -Start metformin XL 500 mg q.h.s. -will DC insulin sliding scale since patient does not want it and sugars remain below 300 01/16 Patient said he reached out to his sister and he is trying to repair the relationship. Still thinks that she is trying to full him but wants to reconcile; some small, temporary acknowledgement that perhaps he is misinterpreting. Patient asked about Adderall which he is on at home; jingle writer said it is on hold now until this other issue can be resolved patient again discussed snacking and says he will leave his snacking to before bedtime and abstaining during the day -will hold off increasing Risperdal for now 01/17 increased risperidone 1mg po BID. 01/18 continue risperidone 1mg po BID 01/19 continue tx. 01/20 increase risperidone 1mg po daily and 2mg po qhs. 01/21 continue tx. 01/22: irritable, denies having DM. hungry. continue current mgmt. 01/23: has not been getting SSI; medical consult entered for DM mgmt. otherwise no change in presentation or plan. asking for new roommate. 01/24 continue tx. 01/25 continue tx. 01/26 continue tx. plan to dc on 01/27 Plan: CV 1:1 since 05/05 oxygen Continue home medications continue Risperdal 0.5 mg b.i.d. Started metformin XL 500 mg q.h.s. Discontinue insulin sliding scale: Patient does not want Discontinue Lovenox; does not seem to be any indication that patient is on this as an outpatient and was most likely just being used during his recent medical admission Gather collateral Hyperkalemia: resolved (received Lokelma 15 g p.o.) COPD Pt with expiratory wheezing upon auscultation, seems chronic given prior presentations to the ED Does not appear to be in acute exacerbation Pt is speaking in full sentences, breathing unlabored Continue home inhalers Continue portable O2, titrate to 2L for O2>90% Prediabetes POC has been as high as 221 A1c elevated at 6.9 Anticoagulation Med rec indicated pt on enoxaparin However indication is unclear: Most likely was an unnecessary carry over from prior inpatient hospitalization and was on Lovenox for DVT prophylaxis Review of medical records offers no other indication for anticoagulation Lovenox can be discontinued at this time HTN Continue furosemide HLD Continue statin GERD PPI Chronic pain Continue Lyrica Patient educated on: diagnosis, medication risk/benefits and medical condition Informed Consent: understands, does not understand and further e Reason for continued inpatient stay Substantial Risk for: stable for discharge Time Spent With Patient Time: Total time managing care of this patient today ____ minutes.
[2025-01-26 20:00] VITALS: BP 119/69; PULSE 85; RESP 16; TEMP 36.1; O2SAT 96
[2025-01-26 21:02] LABS: Glucose, Whole Blood 131 mg/dL (60-115)
[2025-01-26 21:03] VITALS: BP 118/67
[2025-01-26] MEDS: risperiDONE 2 MG TABLET PO (21:03)
[2025-01-26] MEDS: QUEtiapine Fumarate 50 MG TABLET PO (21:03)
[2025-01-26] MEDS: Doxepin HCl 25 MG CAPSULE PO (21:03)
[2025-01-27] MEDS: Acetaminophen 325 MG TABLET 650 MG PO (06:13)
[2025-01-27 06:35] LABS: Glucose, Whole Blood 187 mg/dL (60-115)
[2025-01-27] MEDS: Insulin Lispro 100 UNIT/ML 3 ML VIAL SUBCUT (07:44)
[2025-01-27] MEDS: Insulin Glargine,Hum.rec.anlog 100 UNIT/ML 10 ML VIAL 10 UNIT SUBCUT (08:14)
[2025-01-27] MEDS: risperiDONE 1 MG TABLET PO (08:15)
[2025-01-27] MEDS: Divalproex Sodium 500 MG TABLET.DR 1000 MG PO (08:15)
[2025-01-27] MEDS: Omeprazole 20 MG CAPSULE.DR PO (08:15)
[2025-01-27 08:17] VITALS: BP 119/59; PULSE 85; RESP 18; TEMP 36.3; O2SAT 97
[2025-01-27] MEDS: Pregabalin 200 MG CAPSULE PO (08:18)
[2025-01-27] MEDS: predniSONE 20 MG TABLET PO (08:18)
[2025-01-27] MEDS: cloNIDine HCL 0.2 MG TABLET PO (08:18)
[2025-01-27 08:19] LABS: Ammonia 48 umol/L (13-55)
[2025-01-27] MEDS: Finasteride 5 MG TABLET PO (08:19)
[2025-01-27] MEDS: Lidocaine 4 % Patch ADH..PATCH 2 PATCH TRANSDERMA (08:19)
[2025-01-27] MEDS: metFORMIN HCl ER 500 MG TAB.ER.24H 1000 MG PO (08:19)
[2025-01-27] MEDS: Buprenorphine/Naloxone 8/2 mg FILM 1 FILM SUBLINGUAL (08:19)
--- NOTE | 2025-01-27 08:45 | PM.PSYDC ---
DS: Providers Provider Date of Service: 01/27/25 Date of admission: 01/13/25 22:09 Date of discharge: 01/27/25 Primary care physician: Unknown Physician Consults: 01/13/25 22:48 Consult to Hospitalist Routine Comment: Consulting Provider: [facility] Reason For Exam: OSH admission 01/23/25 08:29 Consult to Hospitalist Routine Comment: Consulting Provider: [facility] Reason For Exam: DM mgmt Discharging clinician: Tawny Angela DS: Diagnosis Discharge Diagnosis (1) Schizoaffective disorder, bipolar type: Status: Acute DS: Medications Discharge Medications Home Medications: Previous Rx's ?Medication ?Instructions ?Recorded albuterol sulfate 2.5 mg/3 mL 2.5 mg (3 mL) inhalation Q2H PRN 01/27/25 (0.083 %) solution for nebulization Shortness Of Breath Or Wheezing #75 mL albuterol sulfate 90 mcg/actuation 1 puff inhalation Q2H PRN 01/27/25 aerosol inhaler (Ventolin HFA) Shortness Of Breath Or Wheezing #6.7 grams buprenorphine 8 mg-naloxone 2 mg 1 film sublingual TID #90 ea 01/27/25 sublingual film (Suboxone) clonidine HCl 0.2 mg tablet 0.2 mg PO BID #60 tabs 01/27/25 divalproex 500 mg tablet,delayed 1,000 mg (2 x 500 mg) PO BID #120 01/27/25 release tabs doxepin 25 mg capsule 25 mg PO BEDTIME #30 caps 01/27/25 finasteride 5 mg tablet 5 mg PO DAILY #30 tabs 01/27/25 insulin glargine 100 unit/mL 10 unit (0.1 mL) subcut DAILY #10 01/27/25 subcutaneous solution (Lantus mL U-100 Insulin) lidocaine 4 % topical patch 2 patch transdermal DAILY #60 ea 01/27/25 (Lidocaine Pain Relief) metformin 1,000 mg tablet 1,000 mg PO BIDWMEAL #60 tabs 01/27/25 omeprazole 20 mg capsule,delayed 20 mg PO BID #60 caps 01/27/25 release pregabalin 200 mg capsule (Lyrica) 200 mg PO BID #60 caps 01/27/25 risperidone 1 mg tablet 1 mg PO DAILY #30 tabs 01/27/25 risperidone 2 mg tablet 2 mg PO BEDTIME #30 tabs 01/27/25 Mental Status Exam Mental Status Exam Narrative: Alert, oriented x 3. behavior is suspicious but cooperative and friendly on approach; calm; patient is not in distress; dressed in casual attire, rings, bracelet, tattooed arms; mood is described as ok and affect irritable; eye contact appropriate; Speech is normal rate, volume and prosody and not pressured; intermittent psychomotor agitation present; thought process is organized and goal directed; Thought content is on less paranoid ideations, and dc home soon; denies any SI/HI. Less AH. Patients insight and judgment: poor x 2 MOCA completed on 01/20/2025--> scored 14/30 most difficulty in visuospatial/executive function (2/5), language repetition(1/2), language fluency(0/1), abstraction (1/2), recall (0/5), orientation impairment in place, city and day. ACL 4.6 showing moderate cognitive impairment. Data Data Completed and Pending Completed studies during hospitalization [Text1]: 01/21/25 01/22/25 01/22/25 08:14 06:36 07:18 Creatinine 0.81 Estim Creat Clear Calc 115.3 Estimated GFR > 60 POC Glucose 245 H 246 H Ammonia Valproic Acid 01/23/25 01/23/25 01/23/25 05:48 11:13 16:09 Creatinine Estim Creat Clear Calc Estimated GFR POC Glucose 423 H* 240 H 232 H Ammonia Valproic Acid 01/23/25 01/24/25 01/24/25 20:20 06:37 07:30 Creatinine Estim Creat Clear Calc Estimated GFR POC Glucose 188 H 320 H 305 H Ammonia Valproic Acid 01/24/25 01/24/25 01/24/25 11:05 15:35 20:17 Creatinine Estim Creat Clear Calc Estimated GFR POC Glucose 89 175 H 134 H Ammonia Valproic Acid 01/25/25 01/25/25 01/25/25 06:29 11:25 17:16 Creatinine Estim Creat Clear Calc Estimated GFR POC Glucose 112 185 H 193 H Ammonia Valproic Acid 01/25/25 01/26/25 01/26/25 20:38 06:30 11:11 Creatinine Estim Creat Clear Calc Estimated GFR POC Glucose 144 H 146 H 194 H Ammonia Valproic Acid 01/26/25 01/26/25 01/27/25 16:22 20:59 06:31 Creatinine Estim Creat Clear Calc Estimated GFR POC Glucose 213 H 131 H 187 H Ammonia Valproic Acid 01/27/25 08:05 Creatinine Estim Creat Clear Calc Estimated GFR POC Glucose Ammonia 48 Valproic Acid Pending DS: Summary Hospital Course Hospital Course: Patient is a 54-year-old male with history of bipolar disorder, PTSD, substance abuse in sustained remission, COPD on home O2 (05/05), non-IDDM, uses a walker who presents for worsening paranoid ideations following medical admission for mild COPD exacerbation. On the unit, patient very anxious about his belongings and demanded being able to watch staff examine them. Patient said he was at home at his sister's where he has been living for 4 months and had trouble breathing and so wanted to go to the hospital where he was treated for COPD exacerbation. While there patient expressed paranoid ideations. Patient reports he has been sober for 4 years and was living in a sober home until about 4 months ago when he moved into his sister's house. He says ever since then, his nephew, her son has been doing little things, subtle things to antagonize him. His sister denies this and will say her son is not even in the house however patient knows this is not true. He says this has been escalating over the past few weeks. This past week, he was at [employer] (he wants policy writer to know that the police brought him there so he could buy a cell phone) to by a cell phone and upon returned to his home, he was upstairs and said he heard his nephew say that he was going to steal the cell phone; he laments that again his sister insisted that her son (patient's nephew) was not in the house at all however patient is convinced that he was. Patient says while at the hospital, he knows that his sister got admitted there because he saw what he thought was the back of her ducking into a room and isn't fueled by hospital staff that said she was not there. Patient also believes that his sister is giving him extra medications in a box of medications some of which are not his and is upset that she does not bring the full box to him to prove it; he also thinks that she will discontinue some medications his doctor wants him to be on for some unknown reason. Patient is beside himself with grief because he loves his sister and can not understand why over these past 4 months she is turning against him and allowing her son to antagonize him. Patient acknowledges that he will intermittently have auditory hallucinations of hearing a word being said but when he turns to look there is no one there. Past Psychiatric History: Psych admissions: most recently at [facility] 12/20/24 Patient has a hx to include: suicidal behavior with attempted injury Medical Evaluation Reviewed: Hospitalist Jer Pending HOSPITAL COURSES On the unit, pt was admitted on a CV and placed on 15 minutes checks for safety. Pt presented with paranoid delusions towards his sister as well towards staff in the hospital. After discussing risks, benefits and alternative treatment options, adderall was discontinued as it worsens psychosis. He was started on risperidone which he tolerated well, and was increased to 1mg po daily and 2mg po qhs. He was continued on depakote 1000mg po BID. He was taper off seroquel. He was continued on doxepine at bedtime for sleep. His affect gradually presented as less paranoid and accusatory. He does have underlying irritable mood and tendency to become irritable when demands not met right away. However, he was able to be redirected and as paranoid decreased he was more social and pleasant on approach. He denied SI/HI throughout this admission. No need for restraints. In terms of his medical conditions, when he came his A1c was 6.9% He was started on metformin, which was titrated to 1000mg po BID. He had been started on prednisone for acute exacerbation of COPD, currently being tapered off, which could have impacted elevated BS while here on the unit. He had been started on lantus 10 units daily, however, given that his A1C is 6.9%, just started on metforming and coming off prednisone, will discontinue lantus as pt struggles cognitively to manage insulin at this time. This policy writer had talked with PCP about med changes and following up on newly dx DM type 2. Collateral information from sister who reported paranoid delusions since he moved in with her last August. He has been in and out of hospital for both medical and psychiatric reasons. This policy writer also obtained collateral information from psychiatric provider, Gao Borja, reports irritable edge but until recently seeing more overt paranoid delusions. She has not seen him recently due to being in the hospital in and out for the past 4 months. prescriber agreed to also discontinued adderall. Time spent discussing smoking cessation with patient: 3 to 10 minutes Status at Discharge Cognitive/behavioral status at discharge: Pt with brighter, less paranoid delusions. No SI/HI. No VH/AH. No aggression towards self or others. Sleeping and eating well. Insight/judgment poor x 2. Functional status at discharge: independent ambulation Overall status at discharge: patient is progressing back to baseline Time Spent with Patient Time attestation: Total time managing care of this patient today ___40_ minutes. Time spent: Greater than 30 minutes Discharge Plan Discharge Anticipated Discharge Date/Time: 01/27/25 08:27 Patient Disposition: Home, Self-Care Discharge Diagnosis: schizoaffective d/o Referrals: Kim Hahn (Therapist) [Other] - 02/09/25 9:00 am (You will see Kim via telehealth on February 09 at 9:00 AM. Please call the number listed if you need to to change or cancel the appointment) Yanelis Mathur [Other] - 02/04/25 11:00 am (You will see Nurse Practitioner Yanelis on 02/04 at 11:00AM. Your usual PCP was unavailable for an after discharge physicals assessment so you will be seeing Yanelis instead. You will have a Medication appointment set with Dr. Borja in February. if you need to cancel or reschedule the appointment please call the number listed.) Discharge Medications: New albuterol sulfate 2.5 mg /3 mL (0.083 %) Solution For Nebulization 2.5 mg inhalation Q2H PRN (Reason: Shortness Of Breath Or Wheezing) Qty: 75 0RF doxepin 25 mg Capsule 25 mg PO BEDTIME Qty: 30 0RF divalproex 500 mg Tablet,Delayed Release (Dr/Ec) 1,000 mg PO BID Qty: 120 0RF risperidone 2 mg Tablet 2 mg PO BEDTIME Qty: 30 0RF clonidine HCl 0.2 mg Tablet 0.2 mg PO BID Qty: 60 0RF omeprazole 20 mg Capsule,Delayed Release(Dr/Ec) 20 mg PO BID Qty: 60 0RF albuterol sulfate [Ventolin HFA] 90 mcg/actuation Hfa Aerosol Inhaler 1 puff inhalation Q2H PRN (Reason: Shortness Of Breath Or Wheezing) Qty: 6.7 0RF risperidone 1 mg Tablet 1 mg PO DAILY Qty: 30 0RF pregabalin [Lyrica] 200 mg Capsule 200 mg PO BID Qty: 60 0RF buprenorphine-naloxone [Suboxone] 8-2 mg Film 1 film sublingual TID Qty: 90 0RF metformin 1,000 mg tablet 1,000 mg PO BIDWMEAL Qty: 60 0RF finasteride 5 mg Tablet 5 mg PO DAILY Qty: 30 0RF lidocaine [Lidocaine Pain Relief] 4 % Adhesive Patch,Medicated 2 patch transdermal DAILY Qty: 60 0RF Discontinued albuterol sulfate 2.5 mg /3 mL (0.083 %) solution for nebulization 1 mg inhalation Q2H PRN (Reason: Shortness Of Breath Or Wheezing) dextroamphetamine-amphetamine [Adderall XR] 20 mg capsule,extended release 24hr 1 cap PO QAM calcium 500 mg PO TID PRN (Reason: Indigestion) clonidine 0.2 mg PO BID divalproex 1,000 mg PO BID doxepin 25 mg PO BEDTIME enoxaparin 40 mg subcut DAILY finasteride 5 mg PO DAILY insulin lispro 1 unit See Protocol subcut QIDACHS Protocol: Insulin Correction Scale Less than or equal to 110 ---- Give (units): 0 111 to 150 Give (units): 0 151 to 200 Give (units): 2 201 to 250 Give (units): 4 251 to 300 Give (units): 6 301 to 350 Give (units): 8 Greater than 350 Give (units): 10 Call MD if Blood Glucose > : 350 pantoprazole 40 mg tablet 40 mg PO BID prednisone 20 MG tablet 20 mg PO BID pregabalin 50 MG capsule 200 mg PO BID quetiapine 50 mg Tablet 50 mg PO TID PRN (Reason: Increased paranoia/agitation) quetiapine 100 mg tablet 100 mg PO BEDTIME albuterol 2.5 MG inhaler 15 mcg inhalation Q2-3H PRN (Reason: Shortness Of Breath Or Wheezing) arformoterol 15 MCG inhaler 2 ml inhalation buprenorphine-naloxone 8 mg tablet 8 mg PO TID lidocaine patch 2 patch DAILY pregabalin 50 mg capsule 200 mg PO BID Discharge Orders: Discharge Order (Routine); Ordered 01/27/25 Ordered By: Tawny Angela Diet: Diabetic diet Activity on Discharge: As tolerated Stand Alone Forms: Patient Portal Discharge page Print Language: Nepali Care Plan Goals: maintain mood less paranoid delusions No SI/HI No aggression towards self or others Health Concerns: 1. Follow up with PCP- newly dx diabetes type 2, started on metformin and insulin Plan of Treatment: 1. Take medications as prescribed Assessment: Pt with less suspicious affect. No SI/HI. Less paranoid ideas. Sleeping and eating well. No aggression towards self or others.
[2025-01-27 08:50] LABS: Valproate 41.5 mcg/mL (50.0-100.0)
[2025-01-27 09:14] VITALS: BMI 36.1
== END 2025-01-27 10:00 | disposition home or self-care (01) | DRG 750 ==
LOC: HO.PM5 01-14 07:25 → HO.PGERI 01-14 14:52
PROVIDERS: Psychiatry & Neurology Psychiatry; Social Worker; Student in an Organized Health Care Education/Training Program; Admitting Provider Psychiatry & Neurology Psychiatry; Visit Provider Psychiatry & Neurology Psychiatry
DX: F25.0 Schizoaffective disorder, bipolar type (principal); Z99.81 Dependence on supplemental oxygen; E11.9 Type 2 diabetes mellitus without complications; F11.20 Opioid dependence, uncomplicated; F43.10 Post-traumatic stress disorder, unspecified; I10 Essential (primary) hypertension; E78.5 Hyperlipidemia, unspecified; K21.9 Gastro-esophageal reflux disease without esophagitis; E87.5 Hyperkalemia; J44.9 Chronic obstructive pulmonary disease, unspecified; F17.210 Nicotine dependence, cigarettes, uncomplicated; Z71.6 Tobacco abuse counseling; Z79.84 Long term (current) use of oral hypoglycemic drugs; Z79.899 Other long term (current) drug therapy
CPT/HCPCS: 36415; 80048; 80053; 80061; 80164; 82140; 82565; 82607; 82746; 82947; 83036; 84439; 84443; 85007; 85027

== ENCOUNTER → 2025-01-13 22:09 | Outpatient (BNV) | payer MEDICAID, SELFPAY | PROVIDERS: Admitting Provider Psychiatry & Neurology Psychiatry; Visit Provider Student in an Organized Health Care Education/Training Program | DX: Z00.8 Encounter for other general examination (principal) | CPT/HCPCS: 99222; 99499 ==

== ENCOUNTER → 2025-01-13 22:09 | Outpatient (BNV) | payer OTHER, SELFPAY | PROVIDERS: Admitting Provider Psychiatry & Neurology Psychiatry; Visit Provider Psychiatry & Neurology Psychiatry | DX: F25.0 Schizoaffective disorder, bipolar type (principal) | CPT/HCPCS: 99231; 99232 ==